=== PATIENT | female | born 1935 | race Caucasian/White ===

== ENCOUNTER → 2016-09-27 | Outpatient (CLI) | payer MEDICARE ==
--- NOTE | 2016-09-27 15:49 | US ---
EXAMINATION TYPE: US carotid duplex BILAT DATE OF EXAM: 09/27/2016 2:33 PM COMPARISON: NONE CLINICAL HISTORY: 81-year-old female R09.89 Right Carotid Bruit. TECHNIQUE: Duplex carotid ultrasound examination. Direct Doppler criteria was utilized. FINDINGS: Moderate to severe atherosclerotic change at the left greater than right bifurcations. EXAM MEASUREMENTS: RIGHT: Peak Systolic Velocity (PSV) cm/sec ----- Right CCA: 66.8 ----- Right ICA: 95.3 ----- Right ECA: 153.1 ICA/CCA ratio: 1.4 RIGHT: End Diastole cm/sec ----- Right CCA: 0.0 ----- Right ICA: 19.7 ----- Right ECA: 0.0 LEFT: Peak Systolic Velocity (PSV) cm/sec ----- Left CCA: 41.8 ----- Left ICA: 127.6 ----- Left ECA: 68.6 ICA/CCA ratio: 3.1 LEFT: End Diastole cm/sec ----- Left CCA: 10.4 ----- Left ICA: 25.3 ----- Left ECA: 0.0 VERTEBRALS (direction of flow): Right Vertebral: Antegrade Left Vertebral: Antegrade IMPRESSION: 1. There may be a moderate (50-69%) proximal ICA stenosis on the left. 2. Moderate to severe atherosclerotic change is seen at the left greater than right bifurcations. Criteria for Assigning % of Stenosis / Diameter reduction (Estimation based on the indirect measurements of the internal carotid artery velocities (ICA PSV). 1. Normal (no stenosis)=ICA PSV < 125 cm/s: ratio < 2.0: ICA EDV<40 cm/s. 2. Less than 50% stenosis=ICA PSV < 125 cm/s: ratio < 2.0: ICA EDV<40 cm/s. 3. 50 to 69% stenosis=ICA PSV of 125 to 230 cm/s: ration 2.0 ? 4.0: ICA EDV 40-100 cm/s. 4. Greater than 70% stenosis to near occlusion= ICA PSV > 230 cm/s: ratio > 4.0: ICA EDV > 100 cm/s. 5. Near occlusion= ICA PSV velocities may be low or undetectable: variable ratio and ICA EDV. 6. Total occlusion=unable to detect flow.
== END | disposition home or self-care (01) ==
LOC: RADUSWWP 14:06
PROVIDERS: ATTEND Family Medicine
DX: I65.23 Occlusion and stenosis of bilateral carotid arteries (principal)
CPT/HCPCS: 93880

== ENCOUNTER 2018-04-23 13:02 | Observation (INO) | payer MEDICARE ==
[2018-04-23] MEDS ORDERED: SODIUM CHLORIDE 0.9% 500 ML 500 ML IV ONE (13:28)
--- NOTE | 2018-04-23 13:32 | ED ---
General Adult HPI - General Chief complaint: Altered Mental Status Stated complaint: general weakness Time Seen by Provider: 04/23/18 13:05 Source: patient, EMS, RN notes reviewed Mode of arrival: EMS Limitations: altered mental status - History of Present Illness Initial comments: This is an 82-year-old female who comes into the emergency department with known dementia. Patient is altered patient is alert but only oriented to self. I am not sure at this time this is her baseline because no one is with the patient currently. EMS states that they were called because of the patient's decreased appetite and failure to failure to eat or drink. Again no further reports and waiting for family to arrive to try to shed some light on the situation. Patient herself denies any pain she denies any problems breathing she states that she thinks she is in [place] at some sort of medical facility there. - Related Data Home Medications Medication Instructions Recorded Confirmed Aspirin EC [Ecotrin Low Dose] 81 mg PO DAILY 04/23/18 04/23/18 Atorvastatin [Lipitor] 40 mg PO DAILY 04/23/18 04/23/18 Carvedilol [Coreg] 12.5 mg PO BID 04/23/18 04/23/18 Donepezil [Aricept] 10 mg PO HS 04/23/18 04/23/18 Lisinopril 20 mg PO DAILY 04/23/18 04/23/18 Multivitamins, Thera [Multivitamin 1 tab PO DAILY 04/23/18 04/23/18 (formulary)] amLODIPine [Norvasc] 10 mg PO DAILY 04/23/18 04/23/18 Allergies Allergy/AdvReac Type Severity Reaction Status Date / Time No Known Allergies Allergy Verified 04/23/18 14:40 Review of Systems ROS Statement: Those systems with pertinent positive or pertinent negative responses have been documented in the HPI. ROS Other: All systems not noted in ROS Statement are negative. Past Medical History Past Medical History: Hyperlipidemia, Hypertension Additional Past Medical History / Comment(s): DAVID rosen History of Any Multi-Drug Resistant Organisms: None Reported Past Surgical History: Coronary Bypass/CABG Past Anesthesia/Blood Transfusion Reactions: Unable to Obtain Past Psychological History: No Psychological Hx Reported Smoking Status: Former smoker Past Alcohol Use History: Occasional Past Drug Use History: None Reported General Exam - General Exam Comments Initial Comments: GENERAL: Patient is well-developed and well-nourished. Patient is nontoxic and well- hydrated and is in mild distress. ENT: Neck is soft and supple. No significant lymphadenopathy is noted. Oropharynx is clear. Moist mucous membranes. Neck has full range of motion without eliciting any pain. EYES: The sclera were anicteric and conjunctiva were pink and moist. Extraocular movements were intact and pupils were equal round and reactive to light. Eyelids were unremarkable. PULMONARY: Unlabored respirations. Good breath sounds bilaterally. No audible rales rhonchi or wheezing was noted. CARDIOVASCULAR: There is a regular rate and rhythm without any murmurs gallops or rubs. ABDOMEN: Soft and nontender with normal bowel sounds. SKIN: Skin is clear with no lesions or rashes and otherwise unremarkable. NEUROLOGIC: Patient is alert and oriented times one. Cranial nerves II through XII are grossly intact. Motor and sensory are also intact. Normal speech, volume and content. Symmetrical smile. MUSCULOSKELETAL: Normal extremities with adequate strength and full range of motion. LYMPHATICS: No significant lymphadenopathy is noted PSYCHIATRIC: Normal psychiatric evaluation. Limitations: altered mental status Course Vital Signs 04/23/18 04/23/18 04/23/18 13:19 13:30 14:00 Temperature 98.7 F Pulse Rate 54 L 94 Respiratory 18 18 Rate Blood Pressure 115/77 115/77 130/82 O2 Sat by Pulse 96 96 97 Oximetry 04/23/18 04/23/18 04/23/18 14:30 15:00 15:30 Temperature Pulse Rate 79 74 87 Respiratory 19 18 17 Rate Blood Pressure 117/77 120/66 120/66 O2 Sat by Pulse 92 L Oximetry 04/23/18 16:00 Temperature Pulse Rate 75 Respiratory 16 Rate Blood Pressure 101/69 O2 Sat by Pulse Oximetry Medical Decision Making - Medical Decision Making EKG shows atrial fibrillation with an occasional PVC at a rate of 83 bpm QRS is 124 QT interval 422 QTC is 495. Patient's EKG is a left bundle branch block. - Lab Data Result diagrams: 04/23/18 13:52 04/23/18 13:52 Lab Results 04/23/18 04/23/18 04/23/18 Range/Units 13:52 13:52 13:52 WBC 8.4 (3.8-10.6) k/uL RBC 4.56 (3.80-5.40) m/uL Hgb 12.9 (11.4-16.0) gm/dL Hct 40.3 (34.0-46.0) % MCV 88.4 (80.0-100.0) fL MCH 28.2 (25.0-35.0) pg MCHC 32.0 (31.0-37.0) g/dL RDW 14.5 (11.5-15.5) % Plt Count 294 (150-450) k/uL Neutrophils % 76 % Lymphocytes % 12 % Monocytes % 6 % Eosinophils % 5 % Basophils % 0 % Neutrophils # 6.3 (1.3-7.7) k/uL Lymphocytes # 1.0 (1.0-4.8) k/uL Monocytes # 0.5 (0-1.0) k/uL Eosinophils # 0.4 (0-0.7) k/uL Basophils # 0.0 (0-0.2) k/uL PT (9.0-12.0) sec INR (<1.2) APTT (22.0-30.0) sec Sodium 134 L (137-145) mmol/L Potassium 4.0 (3.5-5.1) mmol/L Chloride 101 (98-107) mmol/L Carbon Dioxide 22 (22-30) mmol/L Anion Gap 11 mmol/L BUN 33 H (7-17) mg/dL Creatinine 1.39 H (0.52-1.04) mg/dL Est GFR (CKD-EPI)AfAm 41 (>60 ml/min/1.73 sqM) Est GFR (CKD-EPI)NonAf 35 (>60 ml/min/1.73 sqM) Glucose 95 (74-99) mg/dL Calcium 9.3 (8.4-10.2) mg/dL Total Bilirubin 1.1 (0.2-1.3) mg/dL AST 32 (14-36) U/L ALT 22 (9-52) U/L Alkaline Phosphatase 108 (38-126) U/L Total Creatine Kinase 26 L (30-135) U/L CK-MB (CK-2) 1.6 (0.0-2.4) ng/mL CK-MB (CK-2) Rel Index 6.2 Troponin I 0.168 H* (0.000-0.034) ng/mL Total Protein 6.6 (6.3-8.2) g/dL Albumin 3.3 L (3.5-5.0) g/dL Urine Color Urine Appearance (Clear) Urine pH (5.0-8.0) Ur Specific [place] (1.001-1.035) Urine Protein (Negative) Urine Glucose (UA) (Negative) Urine Ketones (Negative) Urine Blood (Negative) Urine Nitrite (Negative) Urine Bilirubin (Negative) Urine Urobilinogen (<2.0) mg/dL Ur Leukocyte Esterase (Negative) Urine RBC (0-5) /hpf Urine WBC (0-5) /hpf Urine WBC Clumps (None) /hpf Ur Squamous Epith Cells (0-4) /hpf Urine Bacteria (None) /hpf Hyaline Casts (0-2) /lpf Urine Mucus (None) /hpf Urine Opiates Screen (NotDetected) Ur Oxycodone Screen (NotDetected) Urine Methadone Screen (NotDetected) Ur Propoxyphene Screen (NotDetected) Ur Barbiturates Screen (NotDetected) U Tricyclic Antidepress (NotDetected) Ur Phencyclidine Scrn (NotDetected) Ur Amphetamines Screen (NotDetected) U Methamphetamines Scrn (NotDetected) U Benzodiazepines Scrn (NotDetected) Urine Cocaine Screen (NotDetected) U Marijuana (THC) Screen (NotDetected) 04/23/18 04/23/18 Range/Units 13:52 15:05 WBC (3.8-10.6) k/uL RBC (3.80-5.40) m/uL Hgb (11.4-16.0) gm/dL Hct (34.0-46.0) % MCV (80.0-100.0) fL MCH (25.0-35.0) pg MCHC (31.0-37.0) g/dL RDW (11.5-15.5) % Plt Count (150-450) k/uL Neutrophils % % Lymphocytes % % Monocytes % % Eosinophils % % Basophils % % Neutrophils # (1.3-7.7) k/uL Lymphocytes # (1.0-4.8) k/uL Monocytes # (0-1.0) k/uL Eosinophils # (0-0.7) k/uL Basophils # (0-0.2) k/uL PT 10.4 (9.0-12.0) sec INR 1.1 (<1.2) APTT 27.3 (22.0-30.0) sec Sodium (137-145) mmol/L Potassium (3.5-5.1) mmol/L Chloride (98-107) mmol/L Carbon Dioxide (22-30) mmol/L Anion Gap mmol/L BUN (7-17) mg/dL Creatinine (0.52-1.04) mg/dL Est GFR (CKD-EPI)AfAm (>60 ml/min/1.73 sqM) Est GFR (CKD-EPI)NonAf (>60 ml/min/1.73 sqM) Glucose (74-99) mg/dL Calcium (8.4-10.2) mg/dL Total Bilirubin (0.2-1.3) mg/dL AST (14-36) U/L ALT (9-52) U/L Alkaline Phosphatase (38-126) U/L Total Creatine Kinase (30-135) U/L CK-MB (CK-2) (0.0-2.4) ng/mL CK-MB (CK-2) Rel Index Troponin I (0.000-0.034) ng/mL Total Protein (6.3-8.2) g/dL Albumin (3.5-5.0) g/dL Urine Color Yellow Urine Appearance Cloudy H (Clear) Urine pH 5.5 (5.0-8.0) Ur Specific [place] 1.008 (1.001-1.035) Urine Protein 1+ H (Negative) Urine Glucose (UA) Negative (Negative) Urine Ketones Negative (Negative) Urine Blood Trace H (Negative) Urine Nitrite Negative (Negative) Urine Bilirubin Negative (Negative) Urine Urobilinogen <2.0 (<2.0) mg/dL Ur Leukocyte Esterase Large H (Negative) Urine RBC 9 H (0-5) /hpf Urine WBC 181 H (0-5) /hpf Urine WBC Clumps Many H (None) /hpf Ur Squamous Epith Cells 17 H (0-4) /hpf Urine Bacteria Many H (None) /hpf Hyaline Casts 18 H (0-2) /lpf Urine Mucus Rare H (None) /hpf Urine Opiates Screen Detected H (NotDetected) Ur Oxycodone Screen Not Detected (NotDetected) Urine Methadone Screen Not Detected (NotDetected) Ur Propoxyphene Screen Not Detected (NotDetected) Ur Barbiturates Screen Not Detected (NotDetected) U Tricyclic Antidepress Not Detected (NotDetected) Ur Phencyclidine Scrn Not Detected (NotDetected) Ur Amphetamines Screen Not Detected (NotDetected) U Methamphetamines Scrn Not Detected (NotDetected) U Benzodiazepines Scrn Not Detected (NotDetected) Urine Cocaine Screen Not Detected (NotDetected) U Marijuana (THC) Screen Not Detected (NotDetected) Disposition Clinical Impression: Urinary tract infection, Anorexia Disposition: ADMITTED IP TO THIS [facility] Referrals: Salty Riley DO [Primary Care Provider] - 1-2 days Time of Disposition: 16:13
[2018-04-23 14:20] LABS: Basophils % (A) 0 %; Eosinophils # (A) 0.4 k/uL (0-0.7); Eosinophils % (A) 5 %; HCT 40.3 % (34.0-46.0); HGB 12.9 gm/dL (11.4-16.0); Lymphocytes % (A) 12 %; MCH 28.2 pg (25.0-35.0); MCV 88.4 fL (80.0-100.0); Mean Platelet Volume 7.7; Monocytes # (A) 0.5 k/uL (0-1.0); Monocytes % (A) 6 %; Neutrophils # (A) 6.3 k/uL (1.3-7.7); Neutrophils % (A) 76 %; Platelet Count 294 k/uL (150-450); RBC 4.56 m/uL (3.80-5.40); RDW 14.5 % (11.5-15.5); WBC 8.4 k/uL (3.8-10.6)
--- NOTE | 2018-04-23 14:24 | XR ---
EXAMINATION TYPE: XR chest 2V DATE OF EXAM: 04/23/2018 COMPARISON: January 03, 2015 HISTORY: Shortness of breath TECHNIQUE: Frontal and lateral views of the chest are obtained. FINDINGS: Scattered senescent parenchymal changes noted. Hyperinflation compatible with COPD. Underlying fibrot ic changes noted. No evidence for infiltrate. No evidence for atelectasis. Heart size is stable. Mediastinal structures are stable and grossly unremarkable. No evidence for hilar prominence. Degenerative changes dorsal spine. IMPRESSION: 1. No evidence for acute pulmonary disease.
[2018-04-23 14:35] LABS: Albumin 3.3 g/dL (3.5-5.0); Calcium 9.3 mg/dL (8.4-10.2); Total Bilirubin 1.1 mg/dL (0.2-1.3); Total Protein 6.6 g/dL (6.3-8.2)
[2018-04-23 14:52] LABS: Creatine Kinase MB 1.6 ng/mL (0.0-2.4)
[2018-04-23 14:53] LABS: Troponin I 0.168 ng/mL (0.000-0.034)
[2018-04-23 14:54] LABS: INR 1.1 (<1.2); Partial Thromboplastin Time 27.3 sec (22.0-30.0); Prothrombin Time 10.4 sec (9.0-12.0)
[2018-04-23 15:50] LABS: Appearance,Urine Cloudy (Clear); Bacteria,Urine Many /hpf; Bilirubin,Urine Negative (Negative); Blood,Urine Trace (Negative); Color,Urine Yellow; Glucose,Urine (UA) Negative (Negative); Hyaline Casts,Urine 18 /lpf (0-2); Ketones,Urine Negative (Negative); Leukocyte Esterase,Urine Large (Negative); Mucus,Urine Rare /hpf; Nitrite,Urine Negative (Negative); PH, Urine 5.5 (5.0-8.0); Protein,Urine 1+ (Negative); RBC,Urine 9 /hpf (0-5); Specific Gravity,Urine 1.008 (1.001-1.035); Squamous Epithelial Cell,Urine 17 /hpf (0-4); Urobilinogen,Urine <2.0 mg/dL (<2.0); WBC,Urine 181 /hpf (0-5)
[2018-04-23 15:54] LABS: Amphetamine Screen,Urine Not Detected (NotDetected); Barbiturate Screen,Urine Not Detected (NotDetected); Benzodiazepines Screen,Urine Not Detected (NotDetected); Cocaine Screen,Urine Not Detected (NotDetected); Methadone Screen, Urine Not Detected (NotDetected); Opiate Screen,Urine Detected (NotDetected); Oxycodone Screen, Urine Not Detected (NotDetected); Phencyclidine Screen,Urine Not Detected (NotDetected); Tricyclic Antidepressant,Urine Not Detected (NotDetected); Urn Cannabinoid Scrn Not Detected (NotDetected)
[2018-04-23] MEDS ORDERED: cefTRIAXone 2,000 MG in SODIUM CHLORIDE 0.9% 100 ML IVPB STA (16:09)
[2018-04-23] MEDS ORDERED: SODIUM CHLORIDE 0.9% 1,000 ML IV ONE (16:21)
[2018-04-23] MEDS ORDERED: IOPAMIDOL-300 CONTRAST 30 ML VIAL (ORAL USE) PO PRN (20:19)
[2018-04-23] MEDS ORDERED: ACETAMINOPHEN TAB 500 MG TAB PO PRN (20:20)
[2018-04-23] MEDS ORDERED: ALPRAZolam 0.25 MG TAB PO PRN (20:20)
[2018-04-23] MEDS ORDERED: MELATONIN 3 MG TABLET PO PRN (20:20)
[2018-04-23] MEDS ORDERED: DONEPEZIL 10 MG TAB PO SCH (21:00)
--- NOTE | 2018-04-23 22:05 | HP ---
HISTORY AND PHYSICAL CHIEF COMPLAINT: Change in mental status and weakness. HISTORY OF PRESENT ILLNESS: This 82-year-old woman with a past medical history of multiple medical problems, including hypertension, hyperlipidemia, dementia, abdominal aortic aneurysm, CAD CABG being followed by Dr. Cristina in the outpatient setting was taken to [facility] with complaints of weakness. The patient is complaining of some abdominal discomfort also especially in the lower part. There is no history of fever, rigors or chills. No history of headache, loss of consciousness. EMS was also called. Appetite was reduced. In the ER, evidence of UTI was suspected. Patient admitted for further evaluation. Troponin found to be 0.168. Also, creatinine is 1.39. There is no history of fever, rigors or chills. PAST MEDICAL HISTORY: Hypertension hyperlipidemia, dementia, abdominal aortic aneurysm, history of CAD, CABG. MEDICATIONS: 1. Lisinopril 20 mg. 2. Coreg 12.5 mg p.o. b.i.d. 3. Ecotrin 81 mg. 4. Norvasc 10 mg daily. 5. Aricept 10 mg q.h.s. 6. Lipitor 40 mg daily. 7. Multivitamins one p.o. daily. ALLERGIES: None. Family history, social history and review of systems could not be taken at length because of the patient's baseline change in mental status. PHYSICAL EXAM: VITAL SIGNS: Pulse is 87, blood pressure 120/62, respiration 17, temperature normal, pulse ox 92% on room air. HEENT: Conjunctivae normal. Oral mucosa dry. NECK: No jugular venous distention. No carotid bruit. No lymph node enlargement. Cardiovascular system: S1, S2 muffled. Ejection systolic murmur. RESPIRATORY: Breath sounds diminished in the bases. A few scattered rhonchi. ABDOMEN: Soft, scaphoid, nontender. No mass palpable. No guarding. No rigidity. Legs: No edema. No swelling. NERVOUS SYSTEM: Higher functions as mentioned earlier. Moves all four extremities. No focal deficits. lymphatics: No lymph nodes palpable in the neck, axillae or groin. Skin: No ulcer, rash or bleeding. LABS: CBC within normal limits. Sodium 134, creatinine 1.39 and troponin 0.168. ASSESSMENT: 1. Abdominal pain possibly urinary tract infection present on admission. 2. Dehydration with diminished p.o. intake with acute renal failure with acute prerenal and acute tubular necrosis. 3. Hyponatremia. 4. Troponin 0.168, indeterminate. Rule out coronary artery disease. 5. Hypertension. 6. Hyperlipidemia. 7. History of dementia. 8. History of abdominal aortic aneurysm. 9. Coronary artery disease, coronary artery bypass grafting. 10.Remote history of nicotine dependence. RECOMMENDATIONS AND DISCUSSION: In this 82-year-old woman who presented with multiple complex medical issues, we will monitor the patient closely, continue the current medications, management and symptomatic treatment. I would also recommend a CT scan of the abdomen and pelvis to complete the workup. Otherwise, broad-spectrum IV antibiotics will be given. Cultures. PT/OT evaluation. overhead worker to evaluate the home situation. Home medications will be continued. Prognosis guarded. I would hold the SAUL inhibitors for now and prognosis guarded because of multiple complex medical issues and further recommendations to follow. Proton pump inhibitors. See orders for details. MMODL / IJN: [id number] /
[2018-04-23] MEDS: PANTOPRAZOLE 40 MG/10 ML VIAL IVP SCH (22:44)
[2018-04-23] MEDS: HEPARIN SODIUM,PORCINE 5,000 UNIT/ML 1 ML VIAL SQ SCH (22:44)
[2018-04-23] MEDS: CARVEDILOL 12.5 MG TAB PO SCH (22:46)
--- NOTE | 2018-04-23 23:38 | CT ---
EXAMINATION TYPE: CT abdomen pelvis wo con DATE OF EXAM: 04/23/2018 COMPARISON: 01/02/2015 HISTORY: UTI CT DLP: 286.5 mGycm Automated exposure control for dose reduction was used. TECHNIQUE: Helical acquisition of images was performed from the lung bases through the pelvis. FINDINGS: Lung bases are clear. Heart is enlarged. There is no pleural effusion. Thoracic aorta and abdominal a fletcher are atheromatous. There is a large lower abdominal aortic aneurysm that measures up to 5.8 cm. T here is upper abdominal aortic aneurysm that measures 3.8 cm. Liver shows no focal defect. Bile ducts are not dilated. Spleen appears normal. There is no evidence of pancreatic mass. Gallbladder appears normal. There is extensive calcification in the branches of t he abdominal aorta. Kidneys show no hydronephrosis. There are bilateral renal cortical cysts that measure up to 2.5 cm. T here is no retroperitoneal adenopathy. Bladder distends smoothly. There is no free fluid in the pelvi s. There is no inguinal hernia. I see no evidence of a bowel obstruction. Appendix is not seen. There is no sign of appendicitis. Uterus shows calcified fibroids. There are spondylotic changes in the tyler mbar spine. I see no focal bone destruction. Bony pelvis is intact. IMPRESSION: THERE IS A 5.8 CM LOWER ABDOMINAL AORTIC ANEURYSM. NO EVIDENCE OF LEAKAGE. ANEURYSM IS INCREASED FROM 4.6 CM [address] THE OLD CT SCAN. EXTENSIVE ATHEROSCLEROTIC VASCULAR CALCIFICATION. FIBROTIC CHANGES AT THE LUNG BASES. THERE IS CLEARING OF THE PLEURAL FLUID AND PULMONARY INTERSTITIAL EDEMA COMPARED TO OLD EXAM. THE HEART IS ENLARGED. HEART APPEARS INCREASED IN SIZE COMPARED TO OLD EXAM. THERE IS PROBABLY A SMALL LOCALIZED DISSECTION OF THE ABDOMINAL AORTA ANEURYSM ON THE ANTERIOR WALL W ITH THE SEPARATION MEASURING 1 CM. THIS IS A CHANGE COMPARED TO OLD EXAM. THIS EXAM WAS DISCUSSED WITH THE PATIENT'S NURSE ON THE FLOOR AT 11:35 PM.
[2018-04-24 00:13] LABS: Potassium 4.4 mmol/L (3.5-5.1)
[2018-04-24 01:36] VITALS: BMI 16.8
[2018-04-24 06:59] LABS: Calcium 8.7 mg/dL (8.4-10.2); Potassium 4.4 mmol/L (3.5-5.1)
[2018-04-24 08:21] LABS: Basophils # (A) 0.1 k/uL (0-0.2); Basophils % (A) 1 %; Eosinophils # (A) 0.3 k/uL (0-0.7); Eosinophils % (A) 3 %; HCT 37.8 % (34.0-46.0); HGB 11.6 gm/dL (11.4-16.0); Hypochromasia Marked; Lymphocytes # (A) 0.8 k/uL (1.0-4.8); Lymphocytes % (A) 11 %; MCH 28.2 pg (25.0-35.0); MCHC 30.8 g/dL (31.0-37.0); MCV 91.7 fL (80.0-100.0); Mean Platelet Volume 7.2; Monocytes # (A) 0.5 k/uL (0-1.0); Monocytes % (A) 6 %; Neutrophils # (A) 5.9 k/uL (1.3-7.7); Neutrophils % (A) 77 %; Platelet Count 315 k/uL (150-450); RBC 4.12 m/uL (3.80-5.40); RDW 14.3 % (11.5-15.5); WBC 7.7 k/uL (3.8-10.6)
[2018-04-24] MEDS ORDERED: ATORVASTATIN 40 MG TAB PO SCH (09:00)
[2018-04-24] MEDS ORDERED: amLODIPine 10 MG TAB PO SCH (09:00)
[2018-04-24] MEDS: PANTOPRAZOLE 40 MG/10 ML VIAL IVP SCH (09:54)
[2018-04-24] MEDS: HEPARIN SODIUM,PORCINE 5,000 UNIT/ML 1 ML VIAL SQ SCH (09:54)
[2018-04-24] MEDS: CARVEDILOL 12.5 MG TAB PO SCH ×2 (09:54→16:59)
[2018-04-24 10:08] VITALS: RESP 20
[2018-04-24] MEDS ORDERED: THIAMINE 100 MG TAB PO SCH (12:00)
[2018-04-24] MEDS ORDERED: FOLIC ACID 1 MG TAB PO SCH (12:00)
[2018-04-24] MEDS ORDERED: MULTIVITAMINS, THERA 1 EACH TAB PO SCH (12:00)
--- NOTE | 2018-04-24 13:50 | CONS ---
DATE OF CONSULTATION: 04/24/2018 This is an 82-year-old, pleasant female. Patient has been admitted with UTI. Patient had a CT scan of the abdomen which showed a lower abdominal aortic aneurysm. The measurement is 5.8. The previous CT scan showed the measurement is 4.6 and also there is noted some small localized dissection on the abdominal aorta aneurysm on the anterior wall with separation measurement about 1 cm. PAST HISTORY: Patient had a CABG done in the past. MEDICAL HISTORY: History of hypertension, anorexia. PHYSICAL EXAMINATION: Patient is seen in her room. NECK: Supple, trachea central. CHEST: Clear to auscultation. ABDOMEN: Soft, nontender. Femoral is not palpable on the right side. Left side is 1+. IMPRESSION: Infrarenal abdominal aortic aneurysm. Patient will be a candidate for aortic stent graft. We will arrange and follow with you. RAJENDAR / WILMA: [id number] / MTDD
[2018-04-24] MEDS ORDERED: PANTOPRAZOLE 40 MG TABLET PO SCH (17:30)
[2018-04-24 17:42] VITALS: BP 121/59; PULSE 60; TEMP 97.8
--- NOTE | 2018-04-24 22:30 | DS ---
DISCHARGE SUMMARY FINAL DIAGNOSES: 1. Abdominal pain with abdominal aortic aneurysm 5.8 cm increased from 4.6 cm. 2. Possible small localized dissection of the anterior abdominal wall aortic aneurysm. 3. Acute urinary tract infection, present on admission. 4. Dehydration with diminished oral intake and renal failure with acute prerenal acute tubular necrosis. 5. Hyponatremia. 6. Troponin 0.168. Rule out coronary artery disease. 7. Hyperlipidemia. 8. History of dementia. 9. History of abdominal aortic aneurysm. 10.History of coronary artery disease, coronary artery bypass grafting. 11.Remote history of nicotine dependence. DISCHARGE DISPOSITION: The patient will be discharged in stable condition with guarded prognosis. Total time taken 35 minutes. HISTORY OF PRESENT ILLNESS: This 82-year-old woman with a past medical history of multiple medical problems was admitted with abdominal pain with features of UTI. CT scan showed abdominal aortic aneurysm. Dr. Echevarria and Dr. Prieto saw the patient. Patient will be transferred to [facility] for further evaluation and treatment. The total time taken was 35 minutes. Prognosis is guarded, but overall the patient is currently stable at this time. The patient will be transferred to [facility]. On exam, vitals are stable. CARDIOVASCULAR: S1, S2 muffled. ABDOMEN: Soft. NERVOUS SYSTEM: No focal deficit. CURRENT MEDICATIONS: Reviewed. They include: 1. Tylenol 500 p.r.n. 2. Xanax 0.25 t.i.d. p.r.n. 3. Norvasc 10 mg daily. 4. Lipitor 40 mg daily. 5. Coreg 12.5 mg b.i.d. 6. Rocephin 1 gram daily. 7. Aricept 10 mg at bedtime. 8. Folic acid 1 mg daily. 9. Heparin 5000 units subcutaneously b.i.d. 10.Melatonin 3 mg at bedtime. 11.Multivitamins 1 p.o. daily. 12.Protonix 40 mg p.o. daily. 13.Vitamin B1 100 mg p.o. daily. MMODL / IJN: [id number] /
== END 2018-04-24 19:44 | disposition other institution (70) ==
LOC: EC 13:02 → 3SCARD 16:21
PROVIDERS: ADMIT Hospitalist; ATTEND Hospitalist
DX: I71.4 Abdominal aortic aneurysm, without rupture (principal); N39.0 Urinary tract infection, site not specified; N17.0 Acute kidney failure with tubular necrosis; E86.0 Dehydration; E87.1 Hypo-osmolality and hyponatremia; R77.8 Other specified abnormalities of plasma proteins; I10 Essential (primary) hypertension; E78.5 Hyperlipidemia, unspecified; G30.9 Alzheimer's disease, unspecified; F02.80 Dementia in other diseases classified elsewhere, unspecified severity, without behavioral disturbance, psychotic disturbance, mood disturbance, and anxiety; Z79.82 Long term (current) use of aspirin; Z79.899 Other long term (current) drug therapy; Z95.1 Presence of aortocoronary bypass graft; Z87.891 Personal history of nicotine dependence
CPT/HCPCS: 96376; 96361 ×3; 96365; 96366; 96372 ×2; 96375; 99285; 36415; 93005; 97162; 80053; 80048; 82550; 82553; 83605; 83735; 84132; 84484; 85025 ×2; 85610; 85730; 81001; 87040; 87324; 80306; 71046; 74176; G0378 ×2; J1644 ×2; J0696 ×2; C9113 ×2

== ENCOUNTER 2018-06-23 17:53 | Inpatient (IN) | payer MEDICARE ==
[2018-06-23] MEDS ORDERED: SODIUM CHLORIDE 0.9% 1,000 ML IV ONE (18:36)
--- NOTE | 2018-06-23 18:36 | ED ---
General Adult HPI - General Chief complaint: Recheck/Abnormal Lab/Rx Stated complaint: Recheck Time Seen by Provider: 06/23/18 18:14 Source: EMS Mode of arrival: EMS Limitations: no limitations - History of Present Illness Initial comments: Patient is an 82-year-old female with a history of coronary artery disease, AAA , and Alzheimer's dementia who presents via EMS, alone with a stated chief complaint from her daughter (who lives with her) of altered mental status. Limited report given to me by RN states that the daughter thought that the patient wasn't acting right today. She was more somnolent, and was "breathing funny." The patient is alert and oriented 1. She continuously repeats her own name. She denies any pain at this time. Patient appears disheveled, but in no distress. - Related Data Home Medications Medication Instructions Recorded Confirmed Atorvastatin [Lipitor] 40 mg PO DAILY 04/23/18 04/23/18 Carvedilol [Coreg] 12.5 mg PO BID 04/23/18 04/23/18 Donepezil [Aricept] 10 mg PO HS 04/23/18 04/23/18 Multivitamins, Thera [Multivitamin 1 tab PO DAILY 04/23/18 04/23/18 (formulary)] amLODIPine [Norvasc] 10 mg PO DAILY 04/23/18 04/23/18 Previous Rx's Medication Instructions Recorded ALPRAZolam [Xanax] 0.25 mg PO TID PRN tab 04/24/18 Acetaminophen Tab [Tylenol] 500 mg PO Q6HR PRN tab 04/24/18 Folic Acid 1 mg PO DAILY@1200 tab 04/24/18 Heparin Sodium,Porcine [Heparin 5,000 unit SQ Q12HR vial 04/24/18 Sodium] Melatonin 3 mg PO HS PRN tablet 04/24/18 Pantoprazole Sodium [Protonix] 40 mg PO DAILY #1 tablet. 04/24/18 Thiamine [Vitamin B-1] 100 mg PO DAILY@1200 tab 04/24/18 cefTRIAXone [Rocephin] 1,000 mg IVPB Q24H vial 04/24/18 Allergies Allergy/AdvReac Type Severity Reaction Status Date / Time No Known Allergies Allergy Verified 04/23/18 14:40 Review of Systems ROS Statement: Those systems with pertinent positive or pertinent negative responses have been documented in the HPI. ROS Other: All systems not noted in ROS Statement are negative. Limitations: ROS unobtainable due to patients medical condition (Patient with Alzheimer's dementia) Past Medical History Past Medical History: Hyperlipidemia, Hypertension Additional Past Medical History / Comment(s): alzhimers, AAA History of Any Multi-Drug Resistant Organisms: None Reported Past Surgical History: Coronary Bypass/CABG Additional Past Surgical History / Comment(s): cabg( between [id number]) Past Anesthesia/Blood Transfusion Reactions: Unable to Obtain Additional Past Anesthesia/Blood Transfusion Reaction / Comment(s): hallucination Past Psychological History: No Psychological Hx Reported Smoking Status: Former smoker Past Alcohol Use History: Occasional Past Drug Use History: None Reported - Past Family History Father Family Medical History: No Reported History Mother Additional Family Medical History / Comment(s): of old age General Exam Limitations: no limitations General appearance: alert, in no apparent distress, cachectic Head exam: Present: atraumatic, normocephalic Eye exam: Present: normal appearance, PERRL. Absent: scleral icterus ENT exam: Present: normal exam Neck exam: Present: normal inspection Respiratory exam: Present: normal lung sounds bilaterally. Absent: respiratory distress, wheezes Cardiovascular Exam: Present: tachycardia, irregular rhythm GI/Abdominal exam: Present: soft. Absent: distended, tenderness Rectal exam: Present: deferred Extremities exam: Present: normal inspection. Absent: pedal edema, joint swelling, calf tenderness Back exam: Present: normal inspection. Absent: CVA tenderness (R), CVA tenderness (L) Neurological exam: Present: alert, altered. Absent: oriented X3 Psychiatric exam: Present: normal affect, normal mood Skin exam: Present: warm, dry, intact Course Vital Signs 06/23/18 06/23/18 06/23/18 17:59 18:12 19:16 Temperature 98.7 F Pulse Rate 110 H 102 H Pulse Rate [ 101 H Biostatistician ] Respiratory 18 18 Rate Blood Pressure 103/73 152/85 O2 Sat by Pulse 98 98 Oximetry 06/23/18 20:29 Temperature Pulse Rate 107 H Pulse Rate [ Biostatistician ] Respiratory 32 H Rate Blood Pressure 137/101 O2 Sat by Pulse 100 Oximetry Medical Decision Making - Medical Decision Making Patient is an 82-year-old female presents with a chief complaint of altered mental status. Patient has a history of also dementia is unable to give her own history. She arrives to the emergency department alone. On initial evaluation, patient is mildly hypotensive, heart rate is 110 and irregular. Patient appears nontoxic and is in no distress. Patient reevaluated a computed tomography scan of the head, chest x-ray, basic cardiac evaluation including urinalysis. 7:29 PM EKG performed at 1912 shows sinus rhythm with PACs, there appears to be a bundle branch block which is similar to EKG performed on 04/23/2018. There is concern for ST depressions in aVL, and leads V4 through V6. I discussed these changes with Dr. Villarreal who states that the patient is not a good candidate for the vp lab and that this should be managed medically. Patient is without chest pain at this time. She was given aspirin. We will repeat troponin at 3 hours and admit to medicine with cardiology consult. 9:37 PM Case discussed with Dr. Ervin who accepts admission. Urinalysis shows evidence of infection, patient treated with Rocephin. Currently pending repeat troponin , patient otherwise stable. EKG was repeated at 2036, EKG shows no changes to prior. - Lab Data Result diagrams: 06/23/18 18:34 06/23/18 18:34 Lab Results 06/23/18 06/23/18 06/23/18 Range/Units 18:34 18:34 18:34 WBC 8.9 (3.8-10.6) k/uL RBC 4.24 (3.80-5.40) m/uL Hgb 11.9 (11.4-16.0) gm/dL Hct 39.5 (34.0-46.0) % MCV 93.2 (80.0-100.0) fL MCH 28.1 (25.0-35.0) pg MCHC 30.2 L (31.0-37.0) g/dL RDW 16.0 H (11.5-15.5) % Plt Count 462 H (150-450) k/uL Neutrophils % 79 % Lymphocytes % 12 % Monocytes % 5 % Eosinophils % 1 % Basophils % 0 % Neutrophils # 7.0 (1.3-7.7) k/uL Lymphocytes # 1.1 (1.0-4.8) k/uL Monocytes # 0.5 (0-1.0) k/uL Eosinophils # 0.1 (0-0.7) k/uL Basophils # 0.0 (0-0.2) k/uL Anisocytosis Slight PT (9.0-12.0) sec INR (<1.2) APTT (22.0-30.0) sec VBG pH 7.49 H (7.31-7.41) VBG pCO2 29 L (37-51) mmHg VBG HCO3 22 L (24-28) mmol/L Sodium 142 (137-145) mmol/L Potassium 4.9 (3.5-5.1) mmol/L Chloride 111 H (98-107) mmol/L Carbon Dioxide 21 L (22-30) mmol/L Anion Gap 10 mmol/L BUN 28 H (7-17) mg/dL Creatinine 0.92 (0.52-1.04) mg/dL Est GFR (CKD-EPI)AfAm 67 (>60 ml/min/1.73 sqM) Est GFR (CKD-EPI)NonAf 58 (>60 ml/min/1.73 sqM) Glucose 136 H (74-99) mg/dL Calcium 10.1 (8.4-10.2) mg/dL Total Bilirubin 0.6 (0.2-1.3) mg/dL AST 28 (14-36) U/L ALT 20 (9-52) U/L Alkaline Phosphatase 106 (38-126) U/L Troponin I (0.000-0.034) ng/mL Total Protein 7.5 (6.3-8.2) g/dL Albumin 3.9 (3.5-5.0) g/dL Urine Color Urine Appearance (Clear) Urine pH (5.0-8.0) Ur Specific [place] (1.001-1.035) Urine Protein (Negative) Urine Glucose (UA) (Negative) Urine Ketones (Negative) Urine Blood (Negative) Urine Nitrite (Negative) Urine Bilirubin (Negative) Urine Urobilinogen (<2.0) mg/dL Ur Leukocyte Esterase (Negative) Urine RBC (0-5) /hpf Urine WBC (0-5) /hpf Urine Bacteria (None) /hpf 06/23/18 06/23/18 06/23/18 Range/Units 18:34 20:02 21:11 WBC (3.8-10.6) k/uL RBC (3.80-5.40) m/uL Hgb (11.4-16.0) gm/dL Hct (34.0-46.0) % MCV (80.0-100.0) fL MCH (25.0-35.0) pg MCHC (31.0-37.0) g/dL RDW (11.5-15.5) % Plt Count (150-450) k/uL Neutrophils % % Lymphocytes % % Monocytes % % Eosinophils % % Basophils % % Neutrophils # (1.3-7.7) k/uL Lymphocytes # (1.0-4.8) k/uL Monocytes # (0-1.0) k/uL Eosinophils # (0-0.7) k/uL Basophils # (0-0.2) k/uL Anisocytosis PT 10.6 (9.0-12.0) sec INR 1.0 (<1.2) APTT 22.4 (22.0-30.0) sec VBG pH (7.31-7.41) VBG pCO2 (37-51) mmHg VBG HCO3 (24-28) mmol/L Sodium (137-145) mmol/L Potassium (3.5-5.1) mmol/L Chloride (98-107) mmol/L Carbon Dioxide (22-30) mmol/L Anion Gap mmol/L BUN (7-17) mg/dL Creatinine (0.52-1.04) mg/dL Est GFR (CKD-EPI)AfAm (>60 ml/min/1.73 sqM) Est GFR (CKD-EPI)NonAf (>60 ml/min/1.73 sqM) Glucose (74-99) mg/dL Calcium (8.4-10.2) mg/dL Total Bilirubin (0.2-1.3) mg/dL AST (14-36) U/L ALT (9-52) U/L Alkaline Phosphatase (38-126) U/L Troponin I 0.047 H* (0.000-0.034) ng/mL Total Protein (6.3-8.2) g/dL Albumin (3.5-5.0) g/dL Urine Color Yellow Urine Appearance Clear (Clear) Urine pH 6.5 (5.0-8.0) Ur Specific [place] 1.011 (1.001-1.035) Urine Protein 2+ H (Negative) Urine Glucose (UA) Negative (Negative) Urine Ketones Negative (Negative) Urine Blood Negative (Negative) Urine Nitrite Negative (Negative) Urine Bilirubin Negative (Negative) Urine Urobilinogen <2.0 (<2.0) mg/dL Ur Leukocyte Esterase Small H (Negative) Urine RBC <1 (0-5) /hpf Urine WBC 24 H (0-5) /hpf Urine Bacteria Moderate H (None) /hpf Disposition Clinical Impression: Altered mental status, Elevated troponin, Tachycardia, UTI (urinary tract infection) Disposition: HOME SELF-CARE Condition: Fair Is patient prescribed a controlled substance at d/c from ED?: No Referrals: None,Stated [Primary Care Provider] - 1-2 days Decision to Admit Reason: Admit from EC - Out of Hospital Transfer - Req. Specs Out of Hospital Transfer - Requested Specifics: Telemetry Unit
[2018-06-23 18:51] LABS: Anisocytosis Slight; Basophils % (A) 0 %; Eosinophils # (A) 0.1 k/uL (0-0.7); Eosinophils % (A) 1 %; HCT 39.5 % (34.0-46.0); HGB 11.9 gm/dL (11.4-16.0); Lymphocytes # (A) 1.1 k/uL (1.0-4.8); Lymphocytes % (A) 12 %; MCH 28.1 pg (25.0-35.0); MCHC 30.2 g/dL (31.0-37.0); MCV 93.2 fL (80.0-100.0); Mean Platelet Volume 6.3; Monocytes # (A) 0.5 k/uL (0-1.0); Monocytes % (A) 5 %; Neutrophils % (A) 79 %; Platelet Count 462 k/uL (150-450); RBC 4.24 m/uL (3.80-5.40); WBC 8.9 k/uL (3.8-10.6)
[2018-06-23 18:56] LABS: Albumin 3.9 g/dL (3.5-5.0); Calcium 10.1 mg/dL (8.4-10.2); Potassium 4.9 mmol/L (3.5-5.1); Total Bilirubin 0.6 mg/dL (0.2-1.3); Total Protein 7.5 g/dL (6.3-8.2)
[2018-06-23 19:08] LABS: VBG PH 7.49 (7.31-7.41)
--- NOTE | 2018-06-23 19:47 | XR ---
EXAMINATION TYPE: XR chest 2V DATE OF EXAM: 06/23/2018 COMPARISON: Prior chest x-ray 04/23/2018 HISTORY: Pain, altered mental status TECHNIQUE: Frontal and lateral views of the chest are obtained. FINDINGS: Patient is post median sternotomy. There is no focal air space opacity, pleural effusion, or pneumothorax seen. The cardiac silhouette size is stable. The aorta is dense. Stent graft present within the abdominal aorta. The osseous structures are intact. Prominent lung lines compatible with underlying emphysema. IMPRESSION: No acute cardiopulmonary process.
[2018-06-23] MEDS: ASPIRIN 81 MG PO STA ×2 (19:48→19:51)
--- NOTE | 2018-06-23 19:52 | CT ---
EXAMINATION TYPE: CT brain wo con DATE OF EXAM: 06/23/2018 COMPARISON: Prior CT brain 01/02/2015 HISTORY: Altered mental status. CT DLP: 1099.4 mGycm Automated exposure control for dose reduction was used. Helical acquisition through the brain. FINDINGS: There are cerebral vascular calcifications present. Periventricular white matter shows patchy low att enuation. There is no hemorrhage. Size of the ventricles is prominent and stable. Cortical atrophy is noted. IMPRESSION: STABLE FINDINGS, NO ACUTE ABNORMALITY. 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
[2018-06-23] MEDS ORDERED: ASPIRIN 300 MG SUPP RECTAL STA (20:14)
[2018-06-23 20:24] LABS: Appearance,Urine Clear (Clear); Bacteria,Urine Moderate /hpf; Bilirubin,Urine Negative (Negative); Blood,Urine Negative (Negative); Color,Urine Yellow; Glucose,Urine (UA) Negative (Negative); Ketones,Urine Negative (Negative); Leukocyte Esterase,Urine Small (Negative); Nitrite,Urine Negative (Negative); PH, Urine 6.5 (5.0-8.0); Protein,Urine 2+ (Negative); RBC,Urine <1 /hpf (0-5); Specific Gravity,Urine 1.011 (1.001-1.035); Urobilinogen,Urine <2.0 mg/dL (<2.0); WBC,Urine 24 /hpf (0-5)
[2018-06-23] MEDS ORDERED: NALOXONE 0.4 MG/ML 1 ML VIAL IV PRN (21:33)
[2018-06-23 21:34] LABS: Partial Thromboplastin Time 22.4 sec (22.0-30.0); Prothrombin Time 10.6 sec (9.0-12.0)
[2018-06-23] MEDS: ALPRAZolam 0.25 MG TAB PO PRN (22:17)
[2018-06-23] MEDS: SODIUM CHLORIDE 0.9% 1,000 ML IV SCH (22:55)
[2018-06-23] MEDS ORDERED: fentaNYL (PF) 50 MCG/ML 2 ML AMP IVP ONE (23:22)
[2018-06-23] MEDS ORDERED: ENOXAPARIN 60 MG/0.6 ML SYRINGE SQ STA (23:23)
--- NOTE | 2018-06-24 00:03 | XR ---
EXAMINATION TYPE: XR tibia fibula RT DATE OF EXAM: 06/23/2018 COMPARISON: NONE HISTORY: Pain TECHNIQUE: 4 views FINDINGS: There is vascular calcification. Knee joint and ankle joint appear intact. I see no fracture. There i s osteopenia. IMPRESSION: No acute abnormality of the right tibia and fibula.
[2018-06-24 06:32] LABS: Basophils # (A) 0.1 k/uL (0-0.2); Basophils % (A) 1 %; Eosinophils # (A) 0.1 k/uL (0-0.7); Eosinophils % (A) 1 %; HCT 36.2 % (34.0-46.0); HGB 10.7 gm/dL (11.4-16.0); Hypochromasia Slight; Lymphocytes # (A) 1.7 k/uL (1.0-4.8); Lymphocytes % (A) 20 %; MCH 27.9 pg (25.0-35.0); MCHC 29.7 g/dL (31.0-37.0); MCV 94.1 fL (80.0-100.0); Mean Platelet Volume 6.3; Monocytes # (A) 0.6 k/uL (0-1.0); Monocytes % (A) 7 %; Neutrophils # (A) 5.8 k/uL (1.3-7.7); Neutrophils % (A) 68 %; Platelet Count 416 k/uL (150-450); RBC 3.85 m/uL (3.80-5.40); RDW 15.8 % (11.5-15.5); WBC 8.5 k/uL (3.8-10.6)
[2018-06-24 06:57] LABS: Potassium 4.4 mmol/L (3.5-5.1)
[2018-06-24 06:58] LABS: Calcium 9.6 mg/dL (8.4-10.2)
[2018-06-24 07:41] LABS: Creatine Kinase MB 2.5 ng/mL (0.0-2.4)
[2018-06-24] MEDS: SODIUM CHLORIDE 0.9% 1,000 ML IV SCH (08:15)
[2018-06-24] MEDS: ALPRAZolam 0.25 MG TAB PO PRN (08:15)
[2018-06-24] MEDS ORDERED: QUEtiapine 25 MG TAB PO PRN (09:35)
[2018-06-24] MEDS: MULTIVITAMINS, THERA 1 EACH TAB PO SCH (11:52)
[2018-06-24] MEDS: CARVEDILOL 3.125 MG TAB PO SCH (11:57)
--- NOTE | 2018-06-24 12:38 | P.HPIM ---
History of Present Illness 82-year-old pleasant female with also was dementia appears to be advanced lives with her daughter was brought in by the daughter because the patient breathing was funny. Patient was definitely tachypneic whenever she becomes anxious she becomes tachypneic. There is mild elevation of troponin patient denied any chest pain patient feels good patient is alert oriented 1-2 appears to be at her baseline and discussed her baseline with the daughter. Patient urine is a little bit abnormal but that beyond that there is no evidence of urinary tract infection patient is fever nor leukocytosis probably with pain. Patient denied any dysuria. Patient has urinary incontinence which is not Unexpected for her age and due to her dementia. Although daughter is requesting to keep the antibiotic for a day or 2. Patient's on-and-off mental status changes are secondary to her advancing dementia. I do not believe patient has daily edema this time Review of Systems REVIEW OF SYSTEMS: CONSTITUTIONAL: No fever, no malaise, no fatigue. HEENT: No recent visual problems or hearing problems. Denied any sore throat. CARDIOVASCULAR: No chest pain, orthopnea, PND, no palpitations, no syncope. PULMONARY: No shortness of breath, no cough, no hemoptysis. GASTROINTESTINAL: No diarrhea, no nausea, no vomiting, no abdominal pain. NEUROLOGICAL: No headaches, no weakness, no numbness. HEMATOLOGICAL: Denies any bleeding or petechiae. GENITOURINARY: Denies any burning micturition, frequency, or urgency. MUSCULOSKELETAL/RHEUMATOLOGICAL: Denies any joint pain, swelling, or any muscle pain. ENDOCRINE: Denies any polyuria or polydipsia. The rest of the 14-point review of systems is negative. Past Medical History Past Medical History: Hyperlipidemia, Hypertension Additional Past Medical History / Comment(s): DAVID rosen History of Any Multi-Drug Resistant Organisms: None Reported Past Surgical History: Coronary Bypass/CABG Additional Past Surgical History / Comment(s): cabg( between [id number]) Past Anesthesia/Blood Transfusion Reactions: Unable to Obtain Additional Past Anesthesia/Blood Transfusion Reaction / Comment(s): hallucination Past Psychological History: No Psychological Hx Reported Smoking Status: Former smoker Past Alcohol Use History: Occasional Additional Past Alcohol Use History / Comment(s): patient denies any alcohol use at this time, Past Drug Use History: None Reported - Past Family History Father Family Medical History: No Reported History Mother Additional Family Medical History / Comment(s): of old age Medications and Allergies Home Medications Medication Instructions Recorded Confirmed Type Atorvastatin [Lipitor] 40 mg PO DAILY 04/23/18 06/24/18 History Donepezil [Aricept] 10 mg PO HS 04/23/18 06/24/18 History Multivitamins, Thera [Multivitamin 1 tab PO DAILY 04/23/18 06/24/18 History (formulary)] amLODIPine [Norvasc] 10 mg PO DAILY 04/23/18 06/24/18 History Pantoprazole Sodium [Protonix] 40 mg PO DAILY #1 tablet. 04/24/18 06/24/18 Rx Ascorbic Acid [Vitamin C] 500 mg PO BID 06/24/18 06/24/18 History Aspirin [[place] Aspirin [facility]] 81 mg PO DAILY 06/24/18 06/24/18 History Budesonide/Formoterol Fumarate 2 puff INHALATION RT-Q12H 06/24/18 06/24/18 History [Symbicort 80-4.5 Mcg Inhaler] Carvedilol [Coreg] 3.125 mg PO BID 06/24/18 06/24/18 History Clopidogrel [Plavix] 75 mg PO DAILY 06/24/18 06/24/18 History Docusate [Colace] 100 mg PO Q12HR 06/24/18 06/24/18 History Ferrous Sulfate [Feosol] 325 mg PO BID 06/24/18 06/24/18 History Furosemide [Lasix] 40 mg PO DAILY 06/24/18 06/24/18 History Methimazole [Tapazole] 10 mg PO DAILY 06/24/18 06/24/18 History QUEtiapine [SEROquel] 25 mg PO HS #30 tab 06/24/18 Rx Allergies Allergy/AdvReac Type Severity Reaction Status Date / Time No Known Allergies Allergy Verified 06/24/18 09:25 Physical Exam Vitals: Vital Signs Temp Pulse Pulse Resp BP BP Pulse Ox 06/24/18 08:00 96.3 F L 99 20 165/86 94 L 06/24/18 03:41 88 20 134/83 94 L 06/24/18 00:16 97.3 F L 88 18 164/74 99 06/23/18 23:27 105 H 22 145/108 100 06/23/18 22:17 97.7 F 103 H 24 168/104 100 06/23/18 20:29 107 H 32 H 137/101 100 06/23/18 19:16 102 H 18 152/85 98 06/23/18 18:12 101 H 06/23/18 17:59 98.7 F 110 H 18 103/73 98 Intake and Output 06/23/18 06/24/18 06/24/18 22:59 06:59 14:59 Intake Total 240 Balance 240 Intake: Oral 240 Other: Voiding Method Bedpan Bedpan Weight 56.699 kg 34.5 kg PHYSICAL EXAMINATION: GENERAL: The patient is alert and oriented x1-2, not in any acute distress. Thin built female HEENT: Pupils are round and equally reacting to light. EOMI. No scleral icterus. No conjunctival pallor. Normocephalic, atraumatic. No pharyngeal erythema. No thyromegaly. CARDIOVASCULAR: S1 and S2 present. No murmurs, rubs, or gallops. PULMONARY: Chest is clear to auscultation, no wheezing or crackles. ABDOMEN: Soft, nontender, nondistended, normoactive bowel sounds. No palpable organomegaly. MUSCULOSKELETAL: No joint swelling or deformity. EXTREMITIES: No cyanosis, clubbing, or pedal edema. NEUROLOGICAL: Gross neurological examination did not reveal any focal deficits. SKIN: No rashes. Results CBC & Chem 7: 06/24/18 06:07 06/24/18 06:07 Labs: Abnormal Lab Results - Last 24 Hours (Table) 06/23/18 06/23/18 06/23/18 Range/Units 18:34 18:34 18:34 Hgb (11.4-16.0) gm/dL MCHC 30.2 L (31.0-37.0) g/dL RDW 16.0 H (11.5-15.5) % Plt Count 462 H (150-450) k/uL VBG pH 7.49 H (7.31-7.41) VBG pCO2 29 L (37-51) mmHg VBG HCO3 22 L (24-28) mmol/L Chloride 111 H (98-107) mmol/L Carbon Dioxide 21 L (22-30) mmol/L BUN 28 H (7-17) mg/dL Glucose 136 H (74-99) mg/dL CK-MB (CK-2) (0.0-2.4) ng/mL Troponin I (0.000-0.034) ng/mL Urine Protein (Negative) Ur Leukocyte Esterase (Negative) Urine WBC (0-5) /hpf Urine Bacteria (None) /hpf 06/23/18 06/23/18 06/23/18 Range/Units 18:34 20:02 21:11 Hgb (11.4-16.0) gm/dL MCHC (31.0-37.0) g/dL RDW (11.5-15.5) % Plt Count (150-450) k/uL VBG pH (7.31-7.41) VBG pCO2 (37-51) mmHg VBG HCO3 (24-28) mmol/L Chloride (98-107) mmol/L Carbon Dioxide (22-30) mmol/L BUN (7-17) mg/dL Glucose (74-99) mg/dL CK-MB (CK-2) (0.0-2.4) ng/mL Troponin I 0.047 H* 0.048 H* (0.000-0.034) ng/mL Urine Protein 2+ H (Negative) Ur Leukocyte Esterase Small H (Negative) Urine WBC 24 H (0-5) /hpf Urine Bacteria Moderate H (None) /hpf 06/24/18 06/24/18 06/24/18 Range/Units 06:07 06:07 06:07 Hgb 10.7 L (11.4-16.0) gm/dL MCHC 29.7 L (31.0-37.0) g/dL RDW 15.8 H (11.5-15.5) % Plt Count (150-450) k/uL VBG pH (7.31-7.41) VBG pCO2 (37-51) mmHg VBG HCO3 (24-28) mmol/L Chloride 114 H (98-107) mmol/L Carbon Dioxide 21 L (22-30) mmol/L BUN 25 H (7-17) mg/dL Glucose 105 H (74-99) mg/dL CK-MB (CK-2) 2.5 H (0.0-2.4) ng/mL Troponin I (0.000-0.034) ng/mL Urine Protein (Negative) Ur Leukocyte Esterase (Negative) Urine WBC (0-5) /hpf Urine Bacteria (None) /hpf Thrombosis Risk Factor Assmnt - Choose All That Apply Other Risk Factors: Yes Each Risk Factor Represents 3 Points: Age 75 years or older Thrombosis Risk Factor Assessment Total Risk Factor Score: 3 Thrombosis Risk Factor Assessment Level: Moderate Risk Assessment and Plan Plan: -Altered mental status: Due to advancing dementia by suspicion is low for delirium although patient is bit dehydrated. hold Lasix continue with gentle hydration, patient was started on Seroquel at nighttime for expected agitation on as-needed basis. Physical therapy and outpatient therapy evaluation. Patient is able to provide good history to me. There is no evidence of urinary tract infection -Asymptomatic bacteriuria -Tachycardia sinus tachycardia secondary to intravascular depletion dehydration. Tachycardia presently resolved -Mildly elevated troponin secondary to acute renal failure even though her creatinine is 0.83 her baseline should be around 0.2, patient has significant EKG murmur disease including left bundle branch block although no significant change from the past patient had atrial fibrillation in the past although probably not a good candidate for anticoagulation. Cardiology will evaluate the patient and cardiology clearance patient will transfer out [facility] to care. -Hyperlipidemia -Hypertension -Dementia advanced dementia thousand. History of coronary disease with CABG in the past -Metabolic acidosis non-anion gap secondary to hyperchloremia -CODE STATUS DO NOT RESUSCITATE
[2018-06-24 13:20] LABS: Creatine Kinase MB 2.8 ng/mL (0.0-2.4)
--- NOTE | 2018-06-24 14:08 | P.CRDCN ---
History of Present Illness Consult date: 06/24/18 Requesting physician: Sarah Benavides Reason for Consult (text): Abnormal troponin Chief complaint: Mental status change History of present illness: This is a pleasant 82-year-old female who has known advanced dementia , apparently lives with her daughter at home. The history was all obtained from the medical record, the patient quite confused, and there is no family at bedside at present. Patient was apparently brought to the hospital on this occasion with worsening mental status changes will shortness of breath. A Cardiology consultation was requested because of abnormality in troponin. Blood pressure this morning 164/80 with a heart rate in the 90s, 94% on 2 L of oxygen. White blood cell count 8.5, hemoglobin 10.7, platelet count 416, sodium 142, potassium 4.4, BUN 25 and creatinine 0.8. Troponin 0.047, 0.048. CAT scan of the brain was stable, no acute abnormality. Chest x-ray did not reveal any acute finding. EKG shows a normal sinus rhythm with nonspecific ST- T wave changes, left bundle-branch block pattern. At the time of my examination , patient is quite confused, she is unaware of where she is , she denies any chest pain at present. Past Medical History Past Medical History: Hyperlipidemia, Hypertension Additional Past Medical History / Comment(s): DAVID rosen History of Any Multi-Drug Resistant Organisms: None Reported Past Surgical History: Coronary Bypass/CABG Additional Past Surgical History / Comment(s): cabg( between [id number]) Past Anesthesia/Blood Transfusion Reactions: Unable to Obtain Additional Past Anesthesia/Blood Transfusion Reaction / Comment(s): hallucination Past Psychological History: No Psychological Hx Reported Smoking Status: Former smoker Past Alcohol Use History: Occasional Additional Past Alcohol Use History / Comment(s): patient denies any alcohol use at this time, Past Drug Use History: None Reported - Past Family History Father Family Medical History: No Reported History Mother Additional Family Medical History / Comment(s): of old age Medications and Allergies Home Medications Medication Instructions Recorded Confirmed Type Atorvastatin [Lipitor] 40 mg PO DAILY 04/23/18 06/24/18 History Donepezil [Aricept] 10 mg PO HS 04/23/18 06/24/18 History Multivitamins, Thera [Multivitamin 1 tab PO DAILY 04/23/18 06/24/18 History (formulary)] amLODIPine [Norvasc] 10 mg PO DAILY 04/23/18 06/24/18 History Pantoprazole Sodium [Protonix] 40 mg PO DAILY #1 tablet. 04/24/18 06/24/18 Rx Ascorbic Acid [Vitamin C] 500 mg PO BID 06/24/18 06/24/18 History Aspirin [[place] Aspirin EC] 81 mg PO DAILY 06/24/18 06/24/18 History Budesonide/Formoterol Fumarate 2 puff INHALATION RT-Q12H 06/24/18 06/24/18 History [Symbicort 80-4.5 Mcg Inhaler] Carvedilol [Coreg] 3.125 mg PO BID 06/24/18 06/24/18 History Clopidogrel [Plavix] 75 mg PO DAILY 06/24/18 06/24/18 History Docusate [Colace] 100 mg PO Q12HR 06/24/18 06/24/18 History Ferrous Sulfate [Feosol] 325 mg PO BID 06/24/18 06/24/18 History Furosemide [Lasix] 40 mg PO DAILY 06/24/18 06/24/18 History Methimazole [Tapazole] 10 mg PO DAILY 06/24/18 06/24/18 History QUEtiapine [SEROquel] 25 mg PO HS #30 tab 06/24/18 Rx Allergies Allergy/AdvReac Type Severity Reaction Status Date / Time No Known Allergies Allergy Verified 06/24/18 09:25 Physical Exam Vitals: Vital Signs Temp Pulse Pulse Resp BP BP Pulse Ox 06/24/18 08:00 96.3 F L 99 20 165/86 94 L 06/24/18 03:41 88 20 134/83 94 L 06/24/18 00:16 97.3 F L 88 18 164/74 99 06/23/18 23:27 105 H 22 145/108 100 06/23/18 22:17 97.7 F 103 H 24 168/104 100 06/23/18 20:29 107 H 32 H 137/101 100 06/23/18 19:16 102 H 18 152/85 98 06/23/18 18:12 101 H 06/23/18 17:59 98.7 F 110 H 18 103/73 98 Intake and Output 06/23/18 06/24/18 06/24/18 22:59 06:59 14:59 Intake Total 240 Balance 240 Intake: Oral 240 Other: Voiding Method Bedpan Bedpan Weight 56.699 kg 34.5 kg PHYSICAL EXAMINATION: GENERAL: 82-year-old female in no acute distress at the time of my examination HEENT: Head is atraumatic, normocephalic. Pupils equal, round. Sclera anicteric. Conjunctiva are clear. Mucous membranes of the mouth are moist. Neck is supple. There is no elevated jugular venous pressure. No carotid bruit is heard. HEART EXAMINATION: Heart S1 and S2 systolic murmur is heard CHEST EXAMINATION: Lungs are clear to auscultation and precussion. No chest wall tenderness is noted on palpation or with deep breathing. ABDOMEN: Soft, nontender. Bowel sounds are heard. No organomegaly noted. EXTREMITIES: 2+ peripheral pulses with no evidence of peripheral edema and no calf tenderness noted. NEUROLOGIC [patient is awake, alert, confused Results 06/24/18 06:07 06/24/18 06:07 Cardiac Enzymes 06/23/18 06/23/18 06/23/18 Range/Units 18:34 18:34 21:11 AST 28 (14-36) U/L CK-MB (CK-2) (0.0-2.4) ng/mL Troponin I 0.047 H* 0.048 H* (0.000-0.034) ng/mL 06/24/18 Range/Units 06:07 AST (14-36) U/L CK-MB (CK-2) 2.5 H (0.0-2.4) ng/mL Troponin I (0.000-0.034) ng/mL Coagulation 06/23/18 Range/Units 21:11 PT 10.6 (9.0-12.0) sec APTT 22.4 (22.0-30.0) sec CBC 06/23/18 06/24/18 Range/Units 18:34 06:07 WBC 8.9 8.5 (3.8-10.6) k/uL RBC 4.24 3.85 (3.80-5.40) m/uL Hgb 11.9 10.7 L (11.4-16.0) gm/dL Hct 39.5 36.2 (34.0-46.0) % Plt Count 462 H 416 (150-450) k/uL Comprehensive Metabolic Panel 06/23/18 06/24/18 Range/Units 18:34 06:07 Sodium 142 142 (137-145) mmol/L Potassium 4.9 4.4 (3.5-5.1) mmol/L Chloride 111 H 114 H (98-107) mmol/L Carbon Dioxide 21 L 21 L (22-30) mmol/L BUN 28 H 25 H (7-17) mg/dL Creatinine 0.92 0.83 (0.52-1.04) mg/dL Glucose 136 H 105 H (74-99) mg/dL Calcium 10.1 9.6 (8.4-10.2) mg/dL AST 28 (14-36) U/L ALT 20 (9-52) U/L Alkaline Phosphatase 106 (38-126) U/L Total Protein 7.5 (6.3-8.2) g/dL Albumin 3.9 (3.5-5.0) g/dL Current Medications Generic Name Dose Route Start Last Admin Trade Name Freq PRN Reason Stop Dose Admin Aspirin 81 mg 06/25/18 09:00 Aspirin PO DAILY [facility] Atorvastatin Calcium 40 mg 06/25/18 09:00 Lipitor PO DAILY [facility] Budesonide/Formoterol Fumarate 2 puff 06/24/18 20:00 Symbicort 80-4.5 Mcg Inhaler INHALATION RT-Q12H [facility] Carvedilol 3.125 mg 06/24/18 17:30 06/24/18 11:57 Coreg PO 3.125 mg BID-W/MEALS [facility] Administration Docusate Sodium 100 mg 06/24/18 21:00 Colace PO Q12HR [facility] Donepezil HCl 10 mg 06/24/18 21:00 Aricept PO HS [facility] Ferrous Sulfate 325 mg 06/24/18 21:00 Feosol PO BID [facility] Methimazole 10 mg 06/25/18 09:00 Tapazole PO DAILY [facility] Multivitamins 1 each 06/24/18 12:00 06/24/18 11:52 Theragran PO Not Given DAILY@1200 [facility] Naloxone HCl 0.2 mg 06/23/18 21:33 Narcan IV Q2M PRN Opioid Reversal Pantoprazole Sodium 40 mg 06/25/18 07:30 Protonix PO AC-BRKFST [facility] Quetiapine Fumarate 25 mg 06/24/18 09:35 Seroquel PO HS PRN Agitation Intake and Output 06/23/18 06/24/18 06/24/18 22:59 06:59 14:59 Intake Total 240 Balance 240 Intake: Oral 240 Other: Voiding Method Bedpan Bedpan Weight 56.699 kg 34.5 kg 06/24/18 06:07 06/24/18 06:07 EKG Interpretations (text) EKG shows normal sinus rhythm with left bundle branch block pattern, nonspecific ST-T wave changes Assessment and Plan Plan: Assessment and plan #1 mental status changes in a patient with known advanced dementia #2 UTI #3 abnormal troponin, not consistent with acute coronary syndrome with no nuchal pattern of rise and fall. #4 hyperlipidemia #5 hypertension Plan We will obtain an echocardiogram with Doppler study. We will maximize the patient's medication. Continue a baby aspirin daily along with Lipitor, Coreg, add a small dose of Lisinopril. DNP note has been reviewed, I agree with a documented findings and plan of care. Patient was seen and examined.
[2018-06-24 15:00] VITALS: BMI 12.7
[2018-06-24] MEDS: FERROUS SULFATE 325 MG TAB PO SCH (19:34)
[2018-06-24] MEDS: DOCUSATE 100 MG CAP PO SCH (19:34)
[2018-06-24] MEDS: DONEPEZIL 10 MG TAB PO SCH (19:34)
[2018-06-24] MEDS: SYMBICORT 80-4.5 MCG INHALER INHALATION SCH (20:32)
[2018-06-25] MEDS: PANTOPRAZOLE 40 MG TABLET PO SCH (06:16)
[2018-06-25] MEDS: CARVEDILOL 3.125 MG TAB PO SCH ×2 (06:16→17:52)
[2018-06-25] MEDS: ATORVASTATIN 40 MG TAB PO SCH (08:10)
[2018-06-25] MEDS: DOCUSATE 100 MG CAP PO SCH ×2 (08:10→20:07)
[2018-06-25] MEDS: MULTIVITAMINS, THERA 1 EACH TAB PO SCH (08:10)
[2018-06-25] MEDS: FERROUS SULFATE 325 MG TAB PO SCH ×2 (08:10→20:07)
[2018-06-25] MEDS: ASPIRIN 81 MG PO SCH (08:10)
[2018-06-25] MEDS: METHIMAZOLE 5 MG TAB PO SCH (08:11)
[2018-06-25] MEDS: SYMBICORT 80-4.5 MCG INHALER INHALATION SCH ×2 (08:59→20:37)
[2018-06-25] MEDS ORDERED: CLOPIDOGREL 75 MG TAB PO SCH (09:00)
--- NOTE | 2018-06-25 15:18 | XR ---
EXAMINATION TYPE: XR knee complete RT DATE OF EXAM: 06/25/2018 CLINICAL HISTORY: Pain. TECHNIQUE: Three views of the right knee are obtained. COMPARISON: Right leg x-ray from 2 days ago. FINDINGS: Demineralization is redemonstrated. There is no acute fracture/dislocation evident in righ t knee. Moderate tricompartment joint space loss is present. Posterior vascular calcification is agai n seen. IMPRESSION: As above.
--- NOTE | 2018-06-25 15:19 | XR ---
EXAMINATION TYPE: XR Hip Complete RT DATE OF EXAM: 06/25/2018 CLINICAL HISTORY: Pain. TECHNIQUE: AP and frogleg views of the right hip are obtained. COMPARISON: None. FINDINGS: There is no acute fracture/dislocation evident in the right hip. Demineralization is prese nt. There is moderate to severe axial joint space loss with moderate head neck collar spurring. Right groin vascular calcification is present. IMPRESSION: As above.
--- NOTE | 2018-06-25 15:52 | P.PN ---
Subjective Progress Note Date: 06/25/18 This is a pleasant 82-year-old female who has known advanced dementia , apparently lives with her daughter at home. The history was all obtained from the medical record, the patient quite confused, and there is no family at bedside at present. Patient was apparently brought to the hospital on this occasion with worsening mental status changes will shortness of breath. A Cardiology consultation was requested because of abnormality in troponin. Blood pressure this morning 164/80 with a heart rate in the 90s, 94% on 2 L of oxygen. White blood cell count 8.5, hemoglobin 10.7, platelet count 416, sodium 142, potassium 4.4, BUN 25 and creatinine 0.8. Troponin 0.047, 0.048. CAT scan of the brain was stable, no acute abnormality. Chest x-ray did not reveal any acute finding. EKG shows a normal sinus rhythm with nonspecific ST- T wave changes, left bundle-branch block pattern. At the time of my examination , patient is quite confused, she is unaware of where she is , she denies any chest pain at present. 06/25/2018 Patient seen and examined this morning, blood pressure 118/70 with a heart rate in the 60s, 96% on room air. Patient continues to be confused. Echo remains pending. Objective - Vital Signs Vital signs: Vital Signs Temp 97.1 F L 06/25/18 07:00 Pulse 59 L 06/25/18 08:00 Resp 16 06/25/18 08:00 BP 117/78 06/25/18 07:00 Pulse Ox 96 06/25/18 07:00 Intake & Output 06/24/18 06/25/18 06/25/18 18:59 06:59 18:59 Intake Total 360 280 Output Total 100 100 Balance 360 -100 180 Weight 34.5 kg Intake: Oral 360 280 Output: Urine 100 100 Other: Voiding Method Bedpan Bedpan # Voids 1 1 1 - Exam PHYSICAL EXAMINATION: GENERAL: 82-year-old female in no acute distress at the time of my examination HEENT: Head is atraumatic, normocephalic. Pupils equal, round. Sclera anicteric. Conjunctiva are clear. Mucous membranes of the mouth are moist. Neck is supple. There is no elevated jugular venous pressure. No carotid bruit is heard. HEART EXAMINATION: Heart S1 and S2 systolic murmur is heard CHEST EXAMINATION: Lungs are clear to auscultation and precussion. No chest wall tenderness is noted on palpation or with deep breathing. ABDOMEN: Soft, nontender. Bowel sounds are heard. No organomegaly noted. EXTREMITIES: 2+ peripheral pulses with no evidence of peripheral edema and no calf tenderness noted. NEUROLOGIC [patient is awake, alert, confused - Labs CBC & Chem 7: 06/24/18 06:07 06/24/18 06:07 Labs: Microbiology - Last 24 Hours (Table) 06/23/18 20:02 Urine Culture - Preliminary Urine,Catheterized Group D Enterococcus 06/23/18 22:49 Blood Culture - Preliminary Blood No Growth after 24 hours Assessment and Plan Plan: Assessment and plan #1 mental status changes in a patient with known advanced dementia #2 UTI #3 abnormal troponin, not consistent with acute coronary syndrome with no nuchal pattern of rise and fall. #4 hyperlipidemia #5 hypertension Plan We will review the patient's echocardiogram with Doppler study. Continue current medications. DNP note has been reviewed, I agree with a documented findings and plan of care. Patient was seen and examined.
--- NOTE | 2018-06-25 18:40 | P.PN ---
Subjective 82-year-old pleasant female with also was dementia appears to be advanced lives with her daughter was brought in by the daughter because the patient breathing was funny. Patient was definitely tachypneic whenever she becomes anxious she becomes tachypneic. There is mild elevation of troponin patient denied any chest pain patient feels good patient is alert oriented 1-2 appears to be at her baseline and discussed her baseline with the daughter. Patient urine is a little bit abnormal but that beyond that there is no evidence of urinary tract infection patient is fever nor leukocytosis probably with pain. Patient denied any dysuria. Patient has urinary incontinence which is not Unexpected for her age and due to her dementia. Although daughter is requesting to keep the antibiotic for a day or 2. Patient's on-and-off mental status changes are secondary to her advancing dementia. I do not believe patient has daily edema this time 06/25/2018 No overnight events although patient is limping on the right side and will require subacute rehabilitation placement will obtain x-rays of the right hip and knee ankle on the right side did not show any fracture Constitutional: Denied any fatigue denied any fever. Cardio vascular: denied any chest pain, palpitations Gastrointestinal denied any nausea vomiting Pulmonary: Denied any shortness of breath cough Neurologic denied any new focal deficits All inpatient medications were reviewed and appropriate changes in these medications as dictated in the interval history and assessment and plan. Objective - Vital Signs Vital signs: Vital Signs Temp 97.1 F L 06/25/18 07:00 Pulse 59 L 06/25/18 08:00 Resp 16 06/25/18 08:00 BP 117/78 06/25/18 07:00 Pulse Ox 96 06/25/18 07:00 Intake & Output 06/24/18 06/25/18 06/25/18 18:59 06:59 18:59 Intake Total 360 520 Output Total 100 100 Balance 360 -100 420 Weight 34.5 kg Intake: Oral 360 520 Output: Urine 100 100 Other: Voiding Method Bedpan Bedpan # Voids 1 1 1 # Bowel Movements 1 - Exam PHYSICAL EXAMINATION: GENERAL: The patient is alert and oriented x1-2, not in any acute distress. Thin built female HEENT: Pupils are round and equally reacting to light. EOMI. No scleral icterus. No conjunctival pallor. Normocephalic, atraumatic. No pharyngeal erythema. No thyromegaly. CARDIOVASCULAR: S1 and S2 present. No murmurs, rubs, or gallops. PULMONARY: Chest is clear to auscultation, no wheezing or crackles. ABDOMEN: Soft, nontender, nondistended, normoactive bowel sounds. No palpable organomegaly. MUSCULOSKELETAL: No joint swelling or deformity. EXTREMITIES: No cyanosis, clubbing, or pedal edema. NEUROLOGICAL: Gross neurological examination did not reveal any focal deficits. SKIN: No rashes. - Labs CBC & Chem 7: 06/24/18 06:07 06/24/18 06:07 Labs: Microbiology - Last 24 Hours (Table) 06/23/18 20:02 Urine Culture - Preliminary Urine,Catheterized Group D Enterococcus 06/23/18 22:49 Blood Culture - Preliminary Blood No Growth after 24 hours Assessment and Plan Plan: -Altered mental status: Due to advancing dementia by suspicion is low for delirium although patient is bit dehydrated. holding Lasix continue with gentle hydration, patient was started on Seroquel at nighttime for expected agitation on as-needed basis. Physical therapy and outpatient therapy evaluation. Patient is able to provide good history to me. There is no evidence of urinary tract infection -Asymptomatic bacteriuria -Tachycardia sinus tachycardia secondary to intravascular depletion dehydration. Tachycardia presently resolved -Mildly elevated troponin secondary to acute renal failure even though her creatinine is 0.83 her baseline should be around 0.2, patient has significant EKG murmur disease including left bundle branch block although no significant change from the past patient had atrial fibrillation in the past although probably not a good candidate for anticoagulation. Cardiology will evaluate the patient and cardiology clearance patient will transfer out of [facility] to care. -Hyperlipidemia -Hypertension -Dementia advanced probably dementia of Alzheimer's type patient has deconditioning and severe osteoarthritis because of which patient is limping towards right side right hip and knee x-rays negative along with -2 ankle x-ray for fracture History of coronary disease with CABG in the past -Metabolic acidosis non-anion gap secondary to hyperchloremia -CODE STATUS DO NOT RESUSCITATE
[2018-06-25] MEDS: DONEPEZIL 10 MG TAB PO SCH (20:07)
--- NOTE | 2018-06-25 20:34 | ECHOF ---
Referral Reason:abn trop MEASUREMENTS -------- HEIGHT: 165.1 cm WEIGHT: 34.5 kg BP: IVSd: 1.4 cm (0.6 - 1.1) LVIDd: 4.0 cm (3.9 - 5.3) LVPWd: 2.0 cm (0.6 - 1.1) IVSs: 1.6 cm LVIDs: 3.7 cm LVPWs: 1.8 cm LA Diam: 4.4 cm (2.7 - 3.8) LAESV Index (A-L): 60.04 ml/m Ao Diam: 2.4 cm (2.0 - 3.7) LA Diam: 4.3 cm (2.7 - 3.8) AV Cusp: 1.6 cm (1.5 - 2.6) EPSS: 1.2 cm MV E Lawrence: 0.73 m/s MV DecT: 321 ms MV A Lawrence: 0.63 m/s MV E/A Ratio: 1.17 AV maxP.77 mmHg AV meanP.65 mmHg RAP: 5.00 mmHg RVSP: 25.41 mmHg MV EF SLOPE: 38.69 mm/s (70 - 150) MV EXCURSION: 13.88 mm (> 18.000) FINDINGS -------- Undetermined rhythm. This was a technically good study. The left ventricular size is normal. There is moderate concentric left ventricular hypertrophy. O verall left ventricular systolic function is moderate-severely impaired with, an EF between 30 - 35 % . The right ventricle is normal in size. The left atrium is markedly dilated. LA is severely dilated >40 ml/m2 The right atrial size is normal. Peak/mean gradient across the Aortic Valve is 29.77mmHg / 14.65mmHg. Normally functioning bioprosth etic valve. Mild mitral annular calcification present. Mild mitral regurgitation is present. Mild tricuspid regurgitation present. There is no evidence of pulmonary hypertension. The right v entricular systolic pressure, as measured by Doppler, is 25.41mmHg. Trace/mild (physiologic) pulmonic regurgitation. The aortic root size is normal. There is no pericardial effusion. CONCLUSIONS -------- 1. The left ventricular size is normal. 2. There is moderate concentric left ventricular hypertrophy. 3. Overall left ventricular systolic function is moderate-severely impaired with, an EF between 30 - 35 %. 4. The right ventricle is normal in size. 5. The left atrium is markedly dilated. 6. LA is severely dilated >40 ml/m2 7. The right atrial size is normal. 8. Peak/mean gradient across the Aortic Valve is 29.77mmHg / 14.65mmHg. 9. Normally functioning bioprosthetic valve. 10. Mild mitral annular calcification present. 11. Mild mitral regurgitation is present. 12. Mild tricuspid regurgitation present. 13. There is no evidence of pulmonary hypertension. 14. The right ventricular systolic pressure, as measured by Doppler, is 25.41mmHg. 15. Trace/mild (physiologic) pulmonic regurgitation. 16. The aortic root size is normal. 17. There is no pericardial effusion. MEDICAL TECHNOLOGIST HEMATOLOGY: Gisela Stewart RDCS
[2018-06-26] MEDS: CARVEDILOL 3.125 MG TAB PO SCH (07:39)
[2018-06-26] MEDS: DOCUSATE 100 MG CAP PO SCH (07:39)
[2018-06-26] MEDS: ASPIRIN 81 MG PO SCH (07:39)
[2018-06-26] MEDS: MULTIVITAMINS, THERA 1 EACH TAB PO SCH (07:39)
[2018-06-26] MEDS: FERROUS SULFATE 325 MG TAB PO SCH (07:40)
[2018-06-26] MEDS: ATORVASTATIN 40 MG TAB PO SCH (07:40)
[2018-06-26] MEDS: PANTOPRAZOLE 40 MG TABLET PO SCH (07:40)
[2018-06-26] MEDS: METHIMAZOLE 5 MG TAB PO SCH (07:40)
[2018-06-26] MEDS: SYMBICORT 80-4.5 MCG INHALER INHALATION SCH (08:37)
[2018-06-26 09:00] LABS: Calcium 9.8 mg/dL (8.4-10.2); Potassium 4.2 mmol/L (3.5-5.1)
[2018-06-26] MEDS ORDERED: AMOXIC-POT CLAV 500-125 MG 1 EACH TAB PO SCH (12:00)
--- NOTE | 2018-06-26 12:26 | P.DS ---
Providers Date of admission: 06/23/18 21:33 Expected date of discharge: 06/26/18 Attending physician: MD Dr. Kennedy Austin. Consults: 06/23/18 21:33 Consult Physician Stat Consulting Provider: Thomas Villarreal Consult Reason/Comments: elevated troponin Do you want consulting provider notified?: Already Contacted Primary care physician: Stated None Hospital Course: Final Diagnoses: -Altered mental status: Due to advancing dementia, suspicion is low for delirium although patient presented with mild dehydration. -POssibly acute UTi with Group D ENterrococcus -Sinus tachycardia secondary to intravascular depletion dehydration. resolved -Mildly elevated troponin secondary to acute renal failure, ATN, not consist. with ACS as per per Cardiology. -Hyperlipidemia -Hypertension -Dementia advanced probably dementia of Alzheimer's type with deconditioning and severe osteoarthritis. History of coronary disease with CABG in the past -Metabolic acidosis non-anion gap secondary to hyperchloremia -CODE STATUS DO NOT RESUSCITATE Hospital COurse:82-year-old pleasant female with also was dementia appears to be advanced lives with her daughter was brought in by the daughter because the patient breathing was funny. Patient was definitely tachypneic whenever she becomes anxious she becomes tachypneic. There is mild elevation of troponin patient denied any chest pain patient feels good patient is alert oriented 1-2 appears to be at her baseline and discussed her baseline with the daughter. Patient urine is a little bit abnormal but that beyond that there is no evidence of urinary tract infection patient is fever nor leukocytosis probably with pain. Patient denied any dysuria. Patient has urinary incontinence which is not Unexpected for her age and due to her dementia. Although daughter is requesting to keep the antibiotic for a day or 2. Patient' s on-and-off mental status changes are secondary to her advancing dementia. I do not believe patient has daily edema this time.Rigiht knee and hip xrays did not report acute fracture/dislocation. Moderate joint space loss. Evaluated by Cardiology,elevated troponins not consistant witih ACS.Echo reporting moderately concentric left ventricular hypertrophy,moderately- severely impaired LV function with EF 30-35%. Urine culture growing greater than 100,000 colonies Group D Enterococcus with C/ O frequency.Augmentin initiated. EXAMINATION: GENERAL: The patient is alert and oriented x1-2, not in any acute distress. Thin built female HEENT: Pupils are round and equally reacting to light. EOMI. No scleral icterus. No conjunctival pallor. Normocephalic, atraumatic. No pharyngeal erythema. No thyromegaly. CARDIOVASCULAR: S1 and S2 present. Systolic murmur, no rubs, or gallops. PULMONARY: Chest is clear to auscultation, no wheezing or crackles. ABDOMEN: Soft, nontender, nondistended, normoactive bowel sounds. No palpable organomegaly. MUSCULOSKELETAL: No joint swelling or deformity. EXTREMITIES: No cyanosis, clubbing, or pedal edema. NEUROLOGICAL: Gross neurological examination did not reveal any focal deficits. SKIN: No rashes. Microbiology 06/23/18 22:49 Blood Blood Culture - Preliminary No Growth after 48 hours 06/23/18 20:02 Urine,Catheterized Urine Culture - Preliminary Group D Enterococcus The impression and plan of care has been dictated as directed. : I performed a history and examination of this patient, discussed the same with the dictator. I agree with the dictator's note ,documented as a scribe. Any additional findings or plans will be noted. Time taken : 35 min. Patient Condition at Discharge: Stable Plan - Discharge Summary Discharge Rx Participant: No New Discharge Prescriptions: New QUEtiapine [SEROquel] 25 mg PO HS #30 tab Amoxicillin/Potassium Clav [Augmentin 875-125 Tablet] 1 tab PO Q12HR #10 tab Continue Multivitamins, Thera [Multivitamin (formulary)] 1 tab PO DAILY Donepezil [Aricept] 10 mg PO HS Atorvastatin [Lipitor] 40 mg PO DAILY Pantoprazole Sodium [Protonix] 40 mg PO DAILY #1 tablet. Furosemide [Lasix] 40 mg PO DAILY Ferrous Sulfate [Feosol] 325 mg PO BID Budesonide/Formoterol Fumarate [Symbicort 80-4.5 Mcg Inhaler] 2 puff INHALATION RT-Q12H Ascorbic Acid [Vitamin C] 500 mg PO BID Docusate [Colace] 100 mg PO Q12HR Aspirin [Toole Aspirin EC] 81 mg PO DAILY Carvedilol [Coreg] 3.125 mg PO BID Methimazole [Tapazole] 10 mg PO DAILY Discontinued amLODIPine [Norvasc] 10 mg PO DAILY Discharge Medication List Atorvastatin [Lipitor] 40 mg PO DAILY 04/23/18 [History] Donepezil [Aricept] 10 mg PO HS 04/23/18 [History] Multivitamins, Thera [Multivitamin (formulary)] 1 tab PO DAILY 04/23/18 [History ] Pantoprazole Sodium [Protonix] 40 mg PO DAILY #1 tablet. 04/24/18 [Rx] Ascorbic Acid [Vitamin C] 500 mg PO BID 06/24/18 [History] Aspirin [Toole Aspirin EC] 81 mg PO DAILY 06/24/18 [History] Budesonide/Formoterol Fumarate [Symbicort 80-4.5 Mcg Inhaler] 2 puff INHALATION RT-Q12H 06/24/18 [History] Carvedilol [Coreg] 3.125 mg PO BID 06/24/18 [History] Docusate [Colace] 100 mg PO Q12HR 06/24/18 [History] Ferrous Sulfate [Feosol] 325 mg PO BID 06/24/18 [History] Furosemide [Lasix] 40 mg PO DAILY 06/24/18 [History] Methimazole [Tapazole] 10 mg PO DAILY 06/24/18 [History] QUEtiapine [SEROquel] 25 mg PO HS #30 tab 06/24/18 [Rx] Amoxicillin/Potassium Clav [Augmentin 875-125 Tablet] 1 tab PO Q12HR #10 tab [Rx] Follow up Appointment(s)/Referral(s): Siddharth Andrade MD [REFERRING] - 3 Days (while at [facility]) Salty Riley DO [Doctor of Osteopathic Medicine] - 1 Week (after dc fron F ) Patient Instructions/Handouts: Tachycardia (GEN) Activity/Diet/Wound Care/Special Instructions: [facility]. DIet: cardiac Activity: as tolerated CBC,BMP In 3 days Discharge Disposition: TRANSFER TO SNF/ECF
[2018-06-26 15:45] VITALS: RESP 16
[2018-06-26 15:48] VITALS: BP 130/62; PULSE 75; TEMP 97.6
--- NOTE | 2018-06-27 11:01 | CDI ---
Documentation Clarification Form Date: 06/27/2018 8:56:00 AM From: Melany Espinosa Natalie Valles, Matrix Supervisor Hours-8:30 am & 5 pm MRuben Admit Date: 06/23/2018 9:33:00 PM Patient Name: Tracey Short Visit Number: [id number] Discharge Date: 06/26/2018 5:27:00 PM ATTENTION: The Clinical Documentation Specialists (CDI) and [facility] Coding Staff appreciate your assistance in clarifying documentation. Please respond to the clarification below the line at the bottom and electronically sign. The CDI & [facility] Coding staff will review the response and follow-up if needed. Please note: Queries are made part of the Legal Health Record. If you have any questions, please contact the author of this message via ITS. Dr. Sarah Benavides Acute Renal failure is documented in the H&P, PNs, DS History Risk factors/Other underlying illness: UTI, dehydration, HTN BUN: 28, 25, 27 CR: 0.92, 0.83, 0.99 GFR: 67, 76, 61 Treatment: IV fluid hydration In order to capture the severity of the condition, please clarify if the condition signifies: Acute renal failure ruled in Acute renal failure ruled out ATN ruled in ATN ruled out Other, please specify Unable to determine KIDGO defines ARIK as the occurrence of any 1 of the following: Increase in serum creatinine level by 0.3 mg/dl, measured prospectively by at least 2 separate levels obtained within 48 hrs, or Increase in serum creatinine level to 1.5 times baseline or greater, which is known or presumed to have occurred within the prior 7 days, or A urine volume of less than 0.5 ml/kg/h for 6 hours or longer. Please continue to document in your progress notes and discharge summary in order to capture severity of illness and risk of mortality. Include clinical findings that support your diagnosis. Appropriate documentation is already dictated MTDD
--- NOTE | 2018-06-28 12:21 | CDI ---
Documentation Clarification Form Date: 06/28/2018 10:58:00 AM From: Melany Espinosa Natalie Valles, Concrete Handler Hours-8:30 am & 5 pm MRuben Admit Date: 06/23/2018 9:33:00 PM Patient Name: Tracey Short Visit Number: [id number] Discharge Date: 06/26/2018 5:27:00 PM ATTENTION: The Clinical Documentation Specialists (CDI) and [facility] Coding Staff appreciate your assistance in clarifying documentation. Please respond to the clarification below the line at the bottom and electronically sign. The CDI & [facility] Coding staff will review the response and follow-up if needed. Please note: Queries are made part of the Legal Health Record. If you have any questions, please contact the author of this message via ITS. Dr Villarreal, Atrial Fibrillation is documented in the H&P, PNs History/Risk Factors: HHD, CAD, Treatment: Plavix In your professional opinion, can you please clarify the type of Atrial Fibrillation, if known? Chronic/Permanent Paroxysmal Persistent Other, please specify Unable to determine MTDD
== END 2018-06-26 17:27 | DRG 689 ==
LOC: EC 17:53 → 3SCARD 21:33 → 4MS4W 06-26 02:58
PROVIDERS: ADMIT Internal Medicine; ATTEND Internal Medicine
DX: N39.0 Urinary tract infection, site not specified (principal); N17.0 Acute kidney failure with tubular necrosis; E87.2 Acidosis; I95.9 Hypotension, unspecified; E86.0 Dehydration; E87.8 Other disorders of electrolyte and fluid balance, not elsewhere classified; I11.9 Hypertensive heart disease without heart failure; F02.80 Dementia in other diseases classified elsewhere, unspecified severity, without behavioral disturbance, psychotic disturbance, mood disturbance, and anxiety; G30.9 Alzheimer's disease, unspecified; I44.7 Left bundle-branch block, unspecified; Z95.1 Presence of aortocoronary bypass graft; I25.10 Atherosclerotic heart disease of native coronary artery without angina pectoris; M19.90 Unspecified osteoarthritis, unspecified site; I71.4 Abdominal aortic aneurysm, without rupture; Z66 Do not resuscitate; E78.5 Hyperlipidemia, unspecified; R32 Unspecified urinary incontinence; R00.0 Tachycardia, unspecified; B95.2 Enterococcus as the cause of diseases classified elsewhere; R77.8 Other specified abnormalities of plasma proteins; I48.91 Unspecified atrial fibrillation; I49.1 Atrial premature depolarization; R01.1 Cardiac murmur, unspecified; R06.82 Tachypnea, not elsewhere classified; Z79.82 Long term (current) use of aspirin; Z79.51 Long term (current) use of inhaled steroids; Z79.899 Other long term (current) drug therapy; Z87.891 Personal history of nicotine dependence
CPT/HCPCS: 36415; 51701; 70450; 71046; 73502; 80048; 80053; 81001; 82550; 82553; 82803; 83735; 84443; 84484; 85025; 85610; 85730; 87040; 87077; 87086; 87186; 93005; 93306; 94640; 96360; 96361; 99285

== ENCOUNTER → 2018-07-01 | Outpatient (CLI) | payer MEDICARE | END | disposition home or self-care (01) | LOC: RADCTMAIN 10:09 | PROVIDERS: ATTEND Surgery | DX: T82.898A Other specified complication of vascular prosthetic devices, implants and grafts, initial encounter (principal) | CPT/HCPCS: 82565; 84520 ==

== ENCOUNTER 2018-07-06 02:19 | Inpatient (IN) | payer MEDICARE ==
[2018-07-06 03:44] LABS: Basophils # (A) 0.1 k/uL (0-0.2); Basophils % (A) 0 %; Eosinophils # (A) 0.1 k/uL (0-0.7); Eosinophils % (A) 1 %; HCT 44.6 % (34.0-46.0); HGB 13.6 gm/dL (11.4-16.0); Hypochromasia Slight; Lymphocytes # (A) 0.8 k/uL (1.0-4.8); Lymphocytes % (A) 4 %; MCH 28.5 pg (25.0-35.0); MCHC 30.5 g/dL (31.0-37.0); MCV 93.3 fL (80.0-100.0); Mean Platelet Volume 7.4; Monocytes # (A) 0.8 k/uL (0-1.0); Monocytes % (A) 4 %; Neutrophils # (A) 18.8 k/uL (1.3-7.7); Neutrophils % (A) 91 %; Platelet Count 422 k/uL (150-450); RBC 4.78 m/uL (3.80-5.40); RDW 15.2 % (11.5-15.5); WBC 20.6 k/uL (3.8-10.6)
[2018-07-06 03:54] LABS: INR 0.9 (<1.2); Partial Thromboplastin Time 22.2 sec (22.0-30.0); Prothrombin Time 10.2 sec (9.0-12.0)
[2018-07-06 04:02] LABS: Albumin 4.2 g/dL (3.5-5.0); Potassium 4.9 mmol/L (3.5-5.1); Total Bilirubin 0.5 mg/dL (0.2-1.3); Total Protein 8.2 g/dL (6.3-8.2)
--- NOTE | 2018-07-06 04:20 | XR ---
EXAM: XR Chest, 1 View CLINICAL HISTORY: Shortness of breath TECHNIQUE: Frontal view of the chest. COMPARISON: Chest x-ray dated 06/23/2018 FINDINGS: Lungs: Diffuse airspace opacities which may represent pulmonary edema versus an infectious process. Pleural space: Unremarkable. No pneumothorax. Heart: Unremarkable. No cardiomegaly. Mediastinum: Unremarkable. Bones/joints: Evidence of prior median sternotomy. Degenerative changes of the osseous structures. Scoliosis of the spine. IMPRESSION: Diffuse airspace opacities which may represent pulmonary edema versus an infectious process.
[2018-07-06 04:37] LABS: Creatine Kinase MB 2.7 ng/mL (0.0-2.4)
[2018-07-06 04:53] LABS: Troponin I 0.09 ng/mL (0.000-0.034)
[2018-07-06 05:23] LABS: Appearance,Urine Clear (Clear); Bacteria,Urine Occasional /hpf; Bilirubin,Urine Negative (Negative); Blood,Urine Trace (Negative); Color,Urine Yellow; Glucose,Urine (UA) Negative (Negative); Hyaline Casts,Urine 4 /lpf (0-2); Ketones,Urine Negative (Negative); Leukocyte Esterase,Urine Negative (Negative); Mucus,Urine Rare /hpf; Nitrite,Urine Negative (Negative); Protein,Urine 2+ (Negative); RBC,Urine 10 /hpf (0-5); Specific Gravity,Urine 1.012 (1.001-1.035); Squamous Epithelial Cell,Urine 1 /hpf (0-4); Urobilinogen,Urine <2.0 mg/dL (<2.0)
[2018-07-06] MEDS ORDERED: FUROSEMIDE 10 MG/ML 2 ML VIAL IV ONE (05:49)
--- NOTE | 2018-07-06 07:03 | ED ---
SOB HPI - General Chief Complaint: Altered Mental Status Stated Complaint: Altered Mental Status Time Seen by Provider: 07/06/18 02:23 Source: EMS Mode of arrival: EMS Limitations: altered mental status (Patient does not fully recall what happened prior to presentation) - History of Present Illness Initial Comments: Patient's an 82-year-old woman who presents with complaint that she does not feel well. The patient states she was at home and then recalls feeling short of breath and then is not able to state what happened for a period of time and remembers riding here in the ambulance. Per report it sounds like she may have had a syncopal episode. There is also report of loss of continence of urine as well as stool. The patient denies trauma or having any pain. She does feel like she has some shortness of breath. MD Complaint: shortness of breath -: hour(s) Consistency: constant Improves With: oxygen Worsens With: nothing Known History Of: congestive heart failure Associated Symptoms: denies other symptoms Treatments Prior to Arrival: none - Related Data Home Medications Medication Instructions Recorded Confirmed Atorvastatin [Lipitor] 40 mg PO DAILY 04/23/18 06/24/18 Donepezil [Aricept] 10 mg PO HS 04/23/18 06/24/18 Multivitamins, Thera [Multivitamin 1 tab PO DAILY 04/23/18 06/24/18 (formulary)] Ascorbic Acid [Vitamin C] 500 mg PO BID 06/24/18 06/24/18 Aspirin [[place] Aspirin EC] 81 mg PO DAILY 06/24/18 06/24/18 Budesonide/Formoterol Fumarate 2 puff INHALATION RT-Q12H 06/24/18 06/24/18 [Symbicort 80-4.5 Mcg Inhaler] Carvedilol [Coreg] 3.125 mg PO BID 06/24/18 06/24/18 Docusate [Colace] 100 mg PO Q12HR 06/24/18 06/24/18 Ferrous Sulfate [Feosol] 325 mg PO BID 06/24/18 06/24/18 Furosemide [Lasix] 40 mg PO DAILY 06/24/18 06/24/18 Methimazole [Tapazole] 10 mg PO DAILY 06/24/18 06/24/18 Previous Rx's Medication Instructions Recorded Pantoprazole Sodium [Protonix] 40 mg PO DAILY #1 tablet. 04/24/18 QUEtiapine [SEROquel] 25 mg PO HS #30 tab 06/24/18 Amoxicillin/Potassium Clav 1 tab PO Q12HR #10 tab 06/26/18 [Augmentin 875-125 Tablet] Allergies Allergy/AdvReac Type Severity Reaction Status Date / Time No Known Allergies Allergy Verified 07/06/18 03:00 Review of Systems ROS Statement: Those systems with pertinent positive or pertinent negative responses have been documented in the HPI. ROS Other: All systems not noted in ROS Statement are negative. Constitutional: Reports: weakness. Denies: fever Eyes: Denies: vision change Respiratory: Reports: dyspnea. Denies: cough, hemoptysis Cardiovascular: Reports: syncope. Denies: chest pain, palpitations, edema Gastrointestinal: Reports: other (Count is still). Denies: abdominal pain, nausea, vomiting Genitourinary: Reports: other (Continence). Denies: dysuria, hematuria Musculoskeletal: Denies: back pain Skin: Denies: rash Neurological: Denies: headache, weakness, numbness Past Medical History Past Medical History: Dementia, Hyperlipidemia, Hypertension Additional Past Medical History / Comment(s): DAVID rosen History of Any Multi-Drug Resistant Organisms: VRE Date of last positivie culture/infection: 06/23/18 MDRO Source:: VRE URINE Past Surgical History: Coronary Bypass/CABG Additional Past Surgical History / Comment(s): cabg( between [id number]) Past Anesthesia/Blood Transfusion Reactions: Unable to Obtain Additional Past Anesthesia/Blood Transfusion Reaction / Comment(s): hallucination Past Psychological History: No Psychological Hx Reported Smoking Status: Former smoker Past Alcohol Use History: Occasional Past Drug Use History: None Reported - Past Family History Father Family Medical History: No Reported History Mother Additional Family Medical History / Comment(s): of old age General Exam Limitations: altered mental status General appearance: alert, in distress (Mild respiratory distress) Head exam: Present: atraumatic, normocephalic Eye exam: Present: normal appearance Neck exam: Present: normal inspection, full ROM Respiratory exam: Present: rales, rhonchi. Absent: wheezes, stridor, accessory muscle use, decreased breath sounds Cardiovascular Exam: Present: tachycardia, systolic murmur. Absent: diastolic murmur, rubs, gallop GI/Abdominal exam: Present: soft. Absent: distended, tenderness, guarding, rebound, mass Extremities exam: Present: normal inspection, normal capillary refill. Absent: pedal edema, calf tenderness Back exam: Present: normal inspection. Absent: CVA tenderness (R), CVA tenderness (L) Neurological exam: Present: alert Skin exam: Present: warm, dry, intact, normal color. Absent: rash Course Vital Signs 07/06/18 07/06/18 07/06/18 02:45 03:22 04:20 Temperature 97.4 F L 98.2 F Pulse Rate 114 H 98 Pulse Rate [ 114 H Apical] Respiratory 24 32 H Rate Blood Pressure 145/91 149/83 O2 Sat by Pulse 90 L 93 L Oximetry 07/06/18 07/06/18 05:21 06:50 Temperature 98.2 F Pulse Rate 87 88 Pulse Rate [ Apical] Respiratory 16 18 Rate Blood Pressure 143/73 O2 Sat by Pulse 99 Oximetry Medical Decision Making - Lab Data Result diagrams: 07/06/18 03:15 07/06/18 03:15 Lab Results 07/06/18 07/06/18 07/06/18 Range/Units 03:15 03:15 03:15 WBC 20.6 H (3.8-10.6) k/uL RBC 4.78 (3.80-5.40) m/uL Hgb 13.6 (11.4-16.0) gm/dL Hct 44.6 (34.0-46.0) % MCV 93.3 (80.0-100.0) fL MCH 28.5 (25.0-35.0) pg MCHC 30.5 L (31.0-37.0) g/dL RDW 15.2 (11.5-15.5) % Plt Count 422 (150-450) k/uL Neutrophils % 91 % Lymphocytes % 4 % Monocytes % 4 % Eosinophils % 1 % Basophils % 0 % Neutrophils # 18.8 H (1.3-7.7) k/uL Lymphocytes # 0.8 L (1.0-4.8) k/uL Monocytes # 0.8 (0-1.0) k/uL Eosinophils # 0.1 (0-0.7) k/uL Basophils # 0.1 (0-0.2) k/uL Hypochromasia Slight PT (9.0-12.0) sec INR (<1.2) APTT (22.0-30.0) sec Sodium (137-145) mmol/L Potassium (3.5-5.1) mmol/L Chloride (98-107) mmol/L Carbon Dioxide (22-30) mmol/L Anion Gap mmol/L BUN (7-17) mg/dL Creatinine (0.52-1.04) mg/dL Est GFR (CKD-EPI)AfAm (>60 ml/min/1.73 sqM) Est GFR (CKD-EPI)NonAf (>60 ml/min/1.73 sqM) Glucose (74-99) mg/dL Calcium (8.4-10.2) mg/dL Total Bilirubin (0.2-1.3) mg/dL AST (14-36) U/L ALT (9-52) U/L Alkaline Phosphatase (38-126) U/L Ammonia 16 (<30) umol/L Total Creatine Kinase 41 (30-135) U/L CK-MB (CK-2) 2.7 H (0.0-2.4) ng/mL CK-MB (CK-2) Rel Index 6.6 Troponin I 0.090 H* (0.000-0.034) ng/mL NT-Pro-B Natriuret Pep pg/mL Total Protein (6.3-8.2) g/dL Albumin (3.5-5.0) g/dL Urine Color Urine Appearance (Clear) Urine pH (5.0-8.0) Ur Specific [place] (1.001-1.035) Urine Protein (Negative) Urine Glucose (UA) (Negative) Urine Ketones (Negative) Urine Blood (Negative) Urine Nitrite (Negative) Urine Bilirubin (Negative) Urine Urobilinogen (<2.0) mg/dL Ur Leukocyte Esterase (Negative) Urine RBC (0-5) /hpf Urine WBC (0-5) /hpf Ur Squamous Epith Cells (0-4) /hpf Urine Bacteria (None) /hpf Hyaline Casts (0-2) /lpf Urine Mucus (None) /hpf 07/06/18 07/06/18 07/06/18 Range/Units 03:15 03:15 03:15 WBC (3.8-10.6) k/uL RBC (3.80-5.40) m/uL Hgb (11.4-16.0) gm/dL Hct (34.0-46.0) % MCV (80.0-100.0) fL MCH (25.0-35.0) pg MCHC (31.0-37.0) g/dL RDW (11.5-15.5) % Plt Count (150-450) k/uL Neutrophils % % Lymphocytes % % Monocytes % % Eosinophils % % Basophils % % Neutrophils # (1.3-7.7) k/uL Lymphocytes # (1.0-4.8) k/uL Monocytes # (0-1.0) k/uL Eosinophils # (0-0.7) k/uL Basophils # (0-0.2) k/uL Hypochromasia PT 10.2 (9.0-12.0) sec INR 0.9 (<1.2) APTT 22.2 (22.0-30.0) sec Sodium 139 (137-145) mmol/L Potassium 4.9 (3.5-5.1) mmol/L Chloride 107 (98-107) mmol/L Carbon Dioxide 22 (22-30) mmol/L Anion Gap 10 mmol/L BUN 23 H (7-17) mg/dL Creatinine 0.99 (0.52-1.04) mg/dL Est GFR (CKD-EPI)AfAm 61 (>60 ml/min/1.73 sqM) Est GFR (CKD-EPI)NonAf 53 (>60 ml/min/1.73 sqM) Glucose 186 H (74-99) mg/dL Calcium 10.0 (8.4-10.2) mg/dL Total Bilirubin 0.5 (0.2-1.3) mg/dL AST 36 (14-36) U/L ALT 15 (9-52) U/L Alkaline Phosphatase 138 H (38-126) U/L Ammonia (<30) umol/L Total Creatine Kinase (30-135) U/L CK-MB (CK-2) (0.0-2.4) ng/mL CK-MB (CK-2) Rel Index Troponin I (0.000-0.034) ng/mL NT-Pro-B Natriuret Pep 72197 pg/mL Total Protein 8.2 (6.3-8.2) g/dL Albumin 4.2 (3.5-5.0) g/dL Urine Color Urine Appearance (Clear) Urine pH (5.0-8.0) Ur Specific [place] (1.001-1.035) Urine Protein (Negative) Urine Glucose (UA) (Negative) Urine Ketones (Negative) Urine Blood (Negative) Urine Nitrite (Negative) Urine Bilirubin (Negative) Urine Urobilinogen (<2.0) mg/dL Ur Leukocyte Esterase (Negative) Urine RBC (0-5) /hpf Urine WBC (0-5) /hpf Ur Squamous Epith Cells (0-4) /hpf Urine Bacteria (None) /hpf Hyaline Casts (0-2) /lpf Urine Mucus (None) /hpf 07/06/18 Range/Units 04:41 WBC (3.8-10.6) k/uL RBC (3.80-5.40) m/uL Hgb (11.4-16.0) gm/dL Hct (34.0-46.0) % MCV (80.0-100.0) fL MCH (25.0-35.0) pg MCHC (31.0-37.0) g/dL RDW (11.5-15.5) % Plt Count (150-450) k/uL Neutrophils % % Lymphocytes % % Monocytes % % Eosinophils % % Basophils % % Neutrophils # (1.3-7.7) k/uL Lymphocytes # (1.0-4.8) k/uL Monocytes # (0-1.0) k/uL Eosinophils # (0-0.7) k/uL Basophils # (0-0.2) k/uL Hypochromasia PT (9.0-12.0) sec INR (<1.2) APTT (22.0-30.0) sec Sodium (137-145) mmol/L Potassium (3.5-5.1) mmol/L Chloride (98-107) mmol/L Carbon Dioxide (22-30) mmol/L Anion Gap mmol/L BUN (7-17) mg/dL Creatinine (0.52-1.04) mg/dL Est GFR (CKD-EPI)AfAm (>60 ml/min/1.73 sqM) Est GFR (CKD-EPI)NonAf (>60 ml/min/1.73 sqM) Glucose (74-99) mg/dL Calcium (8.4-10.2) mg/dL Total Bilirubin (0.2-1.3) mg/dL AST (14-36) U/L ALT (9-52) U/L Alkaline Phosphatase (38-126) U/L Ammonia (<30) umol/L Total Creatine Kinase (30-135) U/L CK-MB (CK-2) (0.0-2.4) ng/mL CK-MB (CK-2) Rel Index Troponin I (0.000-0.034) ng/mL NT-Pro-B Natriuret Pep pg/mL Total Protein (6.3-8.2) g/dL Albumin (3.5-5.0) g/dL Urine Color Yellow Urine Appearance Clear (Clear) Urine pH 6.0 (5.0-8.0) Ur Specific [place] 1.012 (1.001-1.035) Urine Protein 2+ H (Negative) Urine Glucose (UA) Negative (Negative) Urine Ketones Negative (Negative) Urine Blood Trace H (Negative) Urine Nitrite Negative (Negative) Urine Bilirubin Negative (Negative) Urine Urobilinogen <2.0 (<2.0) mg/dL Ur Leukocyte Esterase Negative (Negative) Urine RBC 10 H (0-5) /hpf Urine WBC 4 (0-5) /hpf Ur Squamous Epith Cells 1 (0-4) /hpf Urine Bacteria Occasional H (None) /hpf Hyaline Casts 4 H (0-2) /lpf Urine Mucus Rare H (None) /hpf Disposition Clinical Impression: Elevated troponin, Altered mental status, CHF (congestive heart failure) Narrative: Possible syncope Disposition: ADMITTED IP TO THIS HOSP Condition: Fair
[2018-07-06] MEDS: FUROSEMIDE 10 MG/ML 4 ML VIAL IV SCH ×2 (07:23→17:22)
[2018-07-06] MEDS ORDERED: QUEtiapine 25 MG TAB PO PRN (16:57)
--- NOTE | 2018-07-06 17:06 | P.HPIM ---
History of Present Illness 82-year-old female known to me from her previous hospitalization came in with altered mental status and patient is unable to provide any much of the history to me patient is coughing unable to bring up much chest x-ray has diffuse infiltrates, can be pneumonia and heart failure patient does have ejection fraction of 30-35% patient does have leukocytosis patient doesn't have any high- grade fever, during her last hospitalization patient was treated for urinary tract infection at that time patient had altered mental status as well. She does have advanced dementia Review of Systems Unable to obtain due to her clinical condition all the patient denies any symptoms she feels well she is alert oriented 1 Past Medical History Past Medical History: Dementia, Hyperlipidemia, Hypertension Additional Past Medical History / Comment(s): DAVID rosen History of Any Multi-Drug Resistant Organisms: VRE Date of last positivie culture/infection: 06/23/18 MDRO Source:: VRE URINE Past Surgical History: Coronary Bypass/CABG Additional Past Surgical History / Comment(s): cabg( between [id number]) Past Anesthesia/Blood Transfusion Reactions: Unable to Obtain Additional Past Anesthesia/Blood Transfusion Reaction / Comment(s): hallucination Past Psychological History: No Psychological Hx Reported Smoking Status: Former smoker Past Alcohol Use History: Occasional Additional Past Alcohol Use History / Comment(s): patient denies any alcohol use at this time, Past Drug Use History: None Reported - Past Family History Father Family Medical History: No Reported History Mother Additional Family Medical History / Comment(s): of old age Medications and Allergies Home Medications Medication Instructions Recorded Confirmed Type Atorvastatin [Lipitor] 40 mg PO HS 04/23/18 07/06/18 History Donepezil [Aricept] 10 mg PO HS 04/23/18 07/06/18 History Multivitamins, Thera [Multivitamin 1 tab PO DAILY 04/23/18 07/06/18 History (formulary)] Pantoprazole Sodium [Protonix] 40 mg PO DAILY #1 tablet. 04/24/18 07/06/18 Rx Aspirin [[place] Aspirin EC] 81 mg PO DAILY 06/24/18 07/06/18 History Budesonide/Formoterol Fumarate 2 puff INHALATION RT-Q12H 06/24/18 07/06/18 History [Symbicort 80-4.5 Mcg Inhaler] Carvedilol [Coreg] 3.125 mg PO BID 06/24/18 07/06/18 History Docusate [Colace] 100 mg PO Q12HR 06/24/18 07/06/18 History Ferrous Sulfate [Feosol] 325 mg PO BID 06/24/18 07/06/18 History Furosemide [Lasix] 40 mg PO DAILY 06/24/18 07/06/18 History Methimazole [Tapazole] 10 mg PO DAILY 06/24/18 07/06/18 History QUEtiapine [SEROquel] 25 mg PO HS #30 tab 06/24/18 07/06/18 Rx Allergies Allergy/AdvReac Type Severity Reaction Status Date / Time No Known Allergies Allergy Verified 07/06/18 07:19 Physical Exam Vitals: Vital Signs Temp Pulse Pulse Pulse Resp BP BP 07/06/18 16:00 98.9 F 104 H 17 145/87 07/06/18 13:02 99.2 F 98 18 138/82 07/06/18 11:52 98.6 F 98 18 122/77 07/06/18 08:19 93 22 153/93 07/06/18 06:50 98.2 F 88 18 143/73 07/06/18 05:21 87 16 07/06/18 04:20 114 H 07/06/18 03:22 98.2 F 98 32 H 149/83 07/06/18 02:45 97.4 F L 114 H 24 145/91 Pulse Ox 07/06/18 16:00 91 L 07/06/18 13:02 93 L 07/06/18 11:52 94 L 07/06/18 08:19 97 07/06/18 06:50 99 07/06/18 05:21 07/06/18 04:20 07/06/18 03:22 93 L 07/06/18 02:45 90 L Intake and Output 07/06/18 07/06/18 07/06/18 06:59 14:59 22:59 Intake Total 200 Balance 200 Intake: Oral 200 Other: Weight 63.503 kg PHYSICAL EXAMINATION: GENERAL: The patient is alert and oriented x1 which is bit worse than her baseline, not in any acute distress. And will female HEENT: Pupils are round and equally reacting to light. EOMI. No scleral icterus. No conjunctival pallor. Normocephalic, atraumatic. No pharyngeal erythema. No thyromegaly. CARDIOVASCULAR: S1 and S2 present. No murmurs, rubs, or gallops. PULMONARY: Does have crackles on the posterior lung coreas ABDOMEN: Soft, nontender, nondistended, normoactive bowel sounds. No palpable organomegaly. MUSCULOSKELETAL: No joint swelling or deformity. EXTREMITIES: No cyanosis, clubbing, or pedal edema. NEUROLOGICAL: Gross neurological examination did not reveal any focal deficits. SKIN: No rashes. Results CBC & Chem 7: 07/06/18 03:15 07/06/18 03:15 Labs: Abnormal Lab Results - Last 24 Hours (Table) 07/06/18 07/06/18 07/06/18 Range/Units 03:15 03:15 03:15 WBC 20.6 H (3.8-10.6) k/uL MCHC 30.5 L (31.0-37.0) g/dL Neutrophils # 18.8 H (1.3-7.7) k/uL Lymphocytes # 0.8 L (1.0-4.8) k/uL BUN 23 H (7-17) mg/dL Glucose 186 H (74-99) mg/dL Alkaline Phosphatase 138 H (38-126) U/L CK-MB (CK-2) 2.7 H (0.0-2.4) ng/mL Troponin I 0.090 H* (0.000-0.034) ng/mL Urine Protein (Negative) Urine Blood (Negative) Urine RBC (0-5) /hpf Urine Bacteria (None) /hpf Hyaline Casts (0-2) /lpf Urine Mucus (None) /hpf 07/06/18 Range/Units 04:41 WBC (3.8-10.6) k/uL MCHC (31.0-37.0) g/dL Neutrophils # (1.3-7.7) k/uL Lymphocytes # (1.0-4.8) k/uL BUN (7-17) mg/dL Glucose (74-99) mg/dL Alkaline Phosphatase (38-126) U/L CK-MB (CK-2) (0.0-2.4) ng/mL Troponin I (0.000-0.034) ng/mL Urine Protein 2+ H (Negative) Urine Blood Trace H (Negative) Urine RBC 10 H (0-5) /hpf Urine Bacteria Occasional H (None) /hpf Hyaline Casts 4 H (0-2) /lpf Urine Mucus Rare H (None) /hpf Thrombosis Risk Factor Assmnt - Choose All That Apply Any of the Below Risk Factors Present?: Yes Each Factor Represents 1 point: Abnormal pulmonary function (COPD) Other Risk Factors: Yes Each Risk Factor Represents 3 Points: Age 75 years or older Thrombosis Risk Factor Assessment Total Risk Factor Score: 4 Thrombosis Risk Factor Assessment Level: Moderate Risk Assessment and Plan Plan: Altered mental status: Either secondary to his heart failure exacerbation pneumonia I cannot rule out either. Patient was started on IV Lasix which will be continued patient is on gentler diuretic therapy, cardiology was consulted. -Pneumonia, patient admitted to be treated for healthcare associated pneumonia because of her recent hospital physician patient was started on Zosyn patient does have leukocytosis no fever. And sputum cultures and blood cultures patient has neutropenic leukocytosis with WBC count going up to 20,000 -Congestive heart failure chronic systolic dysfunction ejection fraction of 3035 % with acute exacerbation continue with the gentle the diuretic therapy -Hyperlipidemia hypertension -dementia and advanced probably dementia of Alzheimer's type or vascular dementia, will use antipsychotics on as-needed basis for agitation
[2018-07-06] MEDS: CARVEDILOL 3.125 MG TAB PO SCH (17:22)
[2018-07-06] MEDS: PIPERACILLIN-TAZOBACTAM 3.375 GM in SODIUM CHLORIDE 0.9% 100 ML IVPB SCH (18:07)
[2018-07-06] MEDS: LISINOPRIL 5 MG TAB PO SCH (20:33)
[2018-07-06] MEDS: ATORVASTATIN 40 MG TAB PO SCH (20:33)
[2018-07-06] MEDS: DONEPEZIL 10 MG TAB PO SCH (20:33)
[2018-07-06] MEDS: DOCUSATE 100 MG CAP PO SCH (20:33)
[2018-07-06] MEDS: SYMBICORT 80-4.5 MCG INHALER INHALATION SCH (21:37)
[2018-07-07] MEDS: PIPERACILLIN-TAZOBACTAM 3.375 GM in SODIUM CHLORIDE 0.9% 100 ML IVPB SCH ×3 (02:34→17:23)
[2018-07-07] MEDS: CARVEDILOL 3.125 MG TAB PO SCH (06:59)
[2018-07-07] MEDS: FUROSEMIDE 10 MG/ML 4 ML VIAL IV SCH (06:59)
[2018-07-07 07:05] LABS: Calcium 9.1 mg/dL (8.4-10.2); Potassium 4.1 mmol/L (3.5-5.1)
[2018-07-07] MEDS: PANTOPRAZOLE 40 MG TABLET PO SCH (08:03)
[2018-07-07] MEDS: ASPIRIN 81 MG PO SCH (08:03)
[2018-07-07] MEDS: METHIMAZOLE 5 MG TAB PO SCH (08:03)
[2018-07-07] MEDS: DOCUSATE 100 MG CAP PO SCH ×2 (08:03→19:51)
[2018-07-07] MEDS: LISINOPRIL 5 MG TAB PO SCH (08:03)
--- NOTE | 2018-07-07 08:17 | P.CRDCN ---
History of Present Illness Consult date: 07/06/18 Requesting physician: Sarah Benavides Reason for Consult (text): CHF exacerbation Chief complaint: patient denies complaints History of present illness: This is a pleasantly confused 82-year-old female patient who is not quite sure why she is in the hospital. She is a poor historian due to advanced dementia. When asked she says she was seen by her regular doctor and he didn't like something he saw so sent her to the hospital. Complains of "a little" shortness of breath. She denies orthopnea or PND. She denies edema. She has a history of dementia, hyperlipidemia, hypertension, AAA, coronary artery bypass grafting which she says was done 3 years ago but chart states between 2007 and 2009. Chest x-ray on admission showed diffuse airspace opacities which could represent pulmonary edema versus an infectious process. EKG on admission showed sinus tachycardia with PVCs, ST-T wave abnormalities and IVCD. Laboratory values showed a white blood cell count of 20,000, BUN of 23, creatinine 0.99, troponin 0.090 and NT proBNP of 11,200. Echocardiogram from last month showed moderate to severely impaired LV systolic function with an ejection fraction between 30-35%, mild MR and mild TR with a normally functioning bioprosthetic aortic valve. She's been initiated on IV Lasix. Past Medical History Past Medical History: Dementia, Hyperlipidemia, Hypertension Additional Past Medical History / Comment(s): alzhimers, AAA History of Any Multi-Drug Resistant Organisms: VRE Date of last positivie culture/infection: 06/23/18 MDRO Source:: VRE URINE Past Surgical History: Coronary Bypass/CABG Additional Past Surgical History / Comment(s): cabg( between [id number]) Past Anesthesia/Blood Transfusion Reactions: Unable to Obtain Additional Past Anesthesia/Blood Transfusion Reaction / Comment(s): hallucination Past Psychological History: No Psychological Hx Reported Smoking Status: Former smoker Past Alcohol Use History: Occasional Additional Past Alcohol Use History / Comment(s): patient denies any alcohol use at this time, Past Drug Use History: None Reported - Past Family History Father Family Medical History: No Reported History Mother Additional Family Medical History / Comment(s): of old age Medications and Allergies Home Medications Medication Instructions Recorded Confirmed Type Atorvastatin [Lipitor] 40 mg PO HS 04/23/18 07/06/18 History Donepezil [Aricept] 10 mg PO HS 04/23/18 07/06/18 History Multivitamins, Thera [Multivitamin 1 tab PO DAILY 04/23/18 07/06/18 History (formulary)] Pantoprazole Sodium [Protonix] 40 mg PO DAILY #1 tablet. 04/24/18 07/06/18 Rx Aspirin [[place] Aspirin EC] 81 mg PO DAILY 06/24/18 07/06/18 History Budesonide/Formoterol Fumarate 2 puff INHALATION RT-Q12H 06/24/18 07/06/18 History [Symbicort 80-4.5 Mcg Inhaler] Carvedilol [Coreg] 3.125 mg PO BID 06/24/18 07/06/18 History Docusate [Colace] 100 mg PO Q12HR 06/24/18 07/06/18 History Ferrous Sulfate [Feosol] 325 mg PO BID 06/24/18 07/06/18 History Furosemide [Lasix] 40 mg PO DAILY 06/24/18 07/06/18 History Methimazole [Tapazole] 10 mg PO DAILY 06/24/18 07/06/18 History QUEtiapine [SEROquel] 25 mg PO HS #30 tab 06/24/18 07/06/18 Rx Allergies Allergy/AdvReac Type Severity Reaction Status Date / Time No Known Allergies Allergy Verified 07/06/18 07:19 Physical Exam Vitals: Vital Signs Temp Pulse Pulse Resp BP BP Pulse Ox 07/07/18 04:00 98.0 F 60 18 110/38 94 L 07/07/18 00:00 98.6 F 72 18 128/43 96 07/06/18 20:00 92 18 07/06/18 19:52 98.6 F 92 18 138/82 93 L 07/06/18 16:00 98.9 F 104 H 17 145/87 91 L 07/06/18 13:02 99.2 F 98 18 138/82 93 L 07/06/18 11:52 98.6 F 98 18 122/77 94 L 07/06/18 08:19 93 22 153/93 97 Intake and Output 07/06/18 07/07/18 07/07/18 22:59 06:59 14:59 Intake Total 240 Output Total 1 Balance -1 240 Intake: Oral 240 Output: Urine 1 Other: Voiding Method Toilet Toilet Diaper Diaper # Voids 1 1 Weight 44.8 kg PHYSICAL EXAMINATION: HEENT: Head is atraumatic, normocephalic. Pupils equal, round. Neck is supple. There is elevated jugular venous pressure. HEART EXAMINATION: Heart sounds regular, S1 and S2 with a systolic murmur. CHEST EXAMINATION: Lungs reveal crackles to bilateral lower lobes. No chest wall tenderness is noted on palpation or with deep breathing. ABDOMEN: Soft, nontender. Bowel sounds are heard. No organomegaly noted. EXTREMITIES: 2+ peripheral pulses with no evidence of peripheral edema and no calf tenderness noted. NEUROLOGIC patient is awake, alert and oriented x1-2. . Results 07/06/18 03:15 07/07/18 06:14 Comprehensive Metabolic Panel 07/07/18 Range/Units 06:14 Sodium 138 (137-145) mmol/L Potassium 4.1 (3.5-5.1) mmol/L Chloride 107 (98-107) mmol/L Carbon Dioxide 24 (22-30) mmol/L BUN 25 H (7-17) mg/dL Creatinine 1.32 H (0.52-1.04) mg/dL Glucose 104 H (74-99) mg/dL Calcium 9.1 (8.4-10.2) mg/dL Current Medications Generic Name Dose Route Start Last Admin Trade Name Freq PRN Reason Stop Dose Admin Aspirin 81 mg 07/07/18 09:00 07/07/18 08:03 Aspirin PO 81 mg DAILY MIKE Administration Atorvastatin Calcium 40 mg 07/06/18 21:00 07/06/18 20:33 Lipitor PO 40 mg HS MIKE Administration Budesonide/Formoterol Fumarate 2 puff 07/06/18 20:00 07/06/18 21:37 Symbicort 80-4.5 Mcg Inhaler INHALATION Not Given RT-Q12H MIKE Carvedilol 3.125 mg 07/06/18 17:30 07/07/18 06:59 Coreg PO 3.125 mg AC-BID MIKE Administration Docusate Sodium 100 mg 07/06/18 21:00 07/07/18 08:03 Colace PO 100 mg Q12HR MIKE Administration Donepezil HCl 10 mg 07/06/18 21:00 07/06/18 20:33 Aricept PO 10 mg HS MIKE Administration Furosemide 20 mg 07/06/18 06:00 07/07/18 06:59 Lasix IV 20 mg Q12H MIKE Administration Piperacillin Sod/Tazobactam 100 mls @ 25 mls/hr 07/06/18 18:00 07/07/18 02:34 Sod 3.375 gm/ Sodium Chloride IVPB 25 mls/hr Q8H MIKE Administration Lisinopril 5 mg 07/06/18 21:00 07/07/18 08:03 Zestril PO 5 mg BID MIKE Administration Methimazole 10 mg 07/07/18 09:00 07/07/18 08:03 Tapazole PO 10 mg DAILY MIKE Administration Pantoprazole Sodium 40 mg 07/07/18 09:00 07/07/18 08:03 Protonix PO 40 mg DAILY MIKE Administration Quetiapine Fumarate 25 mg 07/06/18 16:57 Seroquel PO HS PRN Agitation Sodium Chloride 10 ml 07/06/18 09:00 07/06/18 20:33 Saline Flush IV 10 ml BID MIKE Administration Intake and Output 07/06/18 07/07/18 07/07/18 22:59 06:59 14:59 Intake Total 240 Output Total 1 Balance -1 240 Intake: Oral 240 Output: Urine 1 Other: Voiding Method Toilet Toilet Diaper Diaper # Voids 1 1 Weight 44.8 kg 07/06/18 03:15 07/07/18 06:14 Assessment and Plan Assessment: #1 acute on chronic systolic congestive heart failure #2 health care ASSOCIATED PNEUMONIA #3 advanced dementia with altered mental status from baseline #4 hypertension #5 hyperlipidemia #6 history of CAD with prior coronary artery bypass grafting #7 history of bioprosthetic aortic valve Plan: From cardiology's perspective, we will continue IV Lasix. We will resume the patient's beta ramo will add low-dose aspirin, statin and SAUL inhibitor. Continue to monitor daily weights, intake and output as well as renal function and electrolytes. We will continue to follow the patient and provide further recommendations accordingly. BREAKER UP note has been reviewed, I agree with a documented findings and plan of care. Patient was seen and examined.
[2018-07-07] MEDS: SYMBICORT 80-4.5 MCG INHALER INHALATION SCH ×2 (09:26→21:03)
--- NOTE | 2018-07-07 10:43 | P.PN ---
Subjective 82-year-old the was admitted secondary to shortness of breath which is mostly secondary to congestive heart failure exacerbation as repeat chest x-ray showed improved infiltrate, possibility of Coumadin quite pneumonia cannot be ruled out because of which I'll continue on Zosyn for now. Patient is bit hypotensive , mild worsening in creatinine looks much better today will cut down lisinopril to 5 mg daily repeat basic metabolic profile tomorrow, will change Coreg to metoprolol and and Lasix to oral Constitutional: Denied any fatigue denied any fever. Cardio vascular: denied any chest pain, palpitations Gastrointestinal denied any nausea vomiting Pulmonary: Denied any shortness of breath cough Neurologic denied any new focal deficits All inpatient medications were reviewed and appropriate changes in these medications as dictated in the interval history and assessment and plan. Objective - Vital Signs Vital signs: Vital Signs Temp 98 F 07/07/18 08:10 Pulse 59 L 07/07/18 08:10 Resp 18 07/07/18 08:10 BP 90/52 07/07/18 08:10 Pulse Ox 95 07/07/18 08:10 Intake & Output 07/06/18 07/07/18 07/07/18 18:59 06:59 18:59 Intake Total 200 240 Output Total 1 Balance 199 240 Weight 44.8 kg Intake: Oral 200 240 Output: Urine 1 Other: Voiding Method Toilet Diaper # Voids 1 1 - Exam PHYSICAL EXAMINATION: GENERAL: The patient is alert and oriented x1-2 which is her baseline, not in any acute distress. And will female HEENT: Pupils are round and equally reacting to light. EOMI. No scleral icterus. No conjunctival pallor. Normocephalic, atraumatic. No pharyngeal erythema. No thyromegaly. CARDIOVASCULAR: S1 and S2 present. No murmurs, rubs, or gallops. PULMONARY: Clear to auscultation no crackles or wheezing ABDOMEN: Soft, nontender, nondistended, normoactive bowel sounds. No palpable organomegaly. MUSCULOSKELETAL: No joint swelling or deformity. EXTREMITIES: No cyanosis, clubbing, or pedal edema. NEUROLOGICAL: Gross neurological examination did not reveal any focal deficits. SKIN: No rashes. - Labs CBC & Chem 7: 07/06/18 03:15 07/07/18 06:14 Labs: Abnormal Lab Results - Last 24 Hours (Table) 07/07/18 Range/Units 06:14 BUN 25 H (7-17) mg/dL Creatinine 1.32 H (0.52-1.04) mg/dL Glucose 104 H (74-99) mg/dL Microbiology - Last 24 Hours (Table) 07/06/18 03:15 Blood Culture - Preliminary Blood No Growth after 24 hours Assessment and Plan Plan: Altered mental status: Probably congestive heart failure chronic systolic dysfunction with acute exacerbation possibility of pneumonia is low. -Pneumonia, will be treated for healthcare associated pneumonia because of her recent hospital physician patient was started on Zosyn patient does have leukocytosis no fever. And sputum cultures and blood cultures patient has neutropenic leukocytosis with WBC count going up to 20,000, now improved -Congestive heart failure chronic systolic dysfunction ejection fraction of 30- 35% with acute exacerbation continue with the gentle the diuretic therapy -Hyperlipidemia hypertension -dementia and advanced probably dementia of Alzheimer's type or vascular dementia, will use antipsychotics on as-needed basis for agitation
--- NOTE | 2018-07-07 12:56 | P.PN ---
Subjective Progress Note Date: 07/07/18 This is a pleasantly confused 82-year-old female patient who is not quite sure why she is in the hospital. She is a poor historian due to advanced dementia. When asked she says she was seen by her regular doctor and he didn't like something he saw so sent her to the hospital. Complains of "a little" shortness of breath. She denies orthopnea or PND. She denies edema. She has a history of dementia, hyperlipidemia, hypertension, AAA, coronary artery bypass grafting which she says was done 3 years ago but chart states between 2007 and 2009. Chest x-ray on admission showed diffuse airspace opacities which could represent pulmonary edema versus an infectious process. EKG on admission showed sinus tachycardia with PVCs, ST-T wave abnormalities and IVCD. Laboratory values showed a white blood cell count of 20,000, BUN of 23, creatinine 0.99, troponin 0.090 and NT proBNP of 11,200. Echocardiogram from last month showed moderate to severely impaired LV systolic function with an ejection fraction between 30-35%, mild MR and mild TR with a normally functioning bioprosthetic aortic valve. She's been initiated on IV Lasix. 07/07/18 The patient was seen and examined today. Overall she verbalizes feeling better. Denies complaints of shortness of breath. Every time he values showed increase in BUN and creatinine 25 and 1.32. Lasix has been changed to 20 mg by mouth twice a day by primary. She is also noted to have some hypotension and carvedilol was changed to metoprolol. Objective - Vital Signs Vital signs: Vital Signs Temp 98 F 07/07/18 08:10 Pulse 68 07/07/18 12:00 Resp 17 07/07/18 12:00 BP 101/51 07/07/18 12:00 Pulse Ox 91 L 07/07/18 12:00 Intake & Output 07/06/18 07/07/18 07/07/18 18:59 06:59 18:59 Intake Total 200 240 Output Total 1 Balance 199 240 Weight 44.8 kg Intake: Oral 200 240 Output: Urine 1 Other: Voiding Method Toilet Incontinent Diaper # Voids 1 2 - Exam PHYSICAL EXAMINATION: HEENT: Head is atraumatic, normocephalic. Pupils equal, round. Neck is supple. There is no elevated jugular venous pressure. HEART EXAMINATION: Heart sounds regular, S1 and S2 with a systolic murmur. CHEST EXAMINATION: Lungs are clear to auscultation and precussion. No chest wall tenderness is noted on palpation or with deep breathing. ABDOMEN: Soft, nontender. Bowel sounds are heard. No organomegaly noted. EXTREMITIES: 2+ peripheral pulses with no evidence of peripheral edema and no calf tenderness noted. NEUROLOGIC patient is awake, alert and oriented x1-2. . - Labs CBC & Chem 7: 07/06/18 03:15 07/07/18 06:14 Labs: Abnormal Lab Results - Last 24 Hours (Table) 07/07/18 Range/Units 06:14 BUN 25 H (7-17) mg/dL Creatinine 1.32 H (0.52-1.04) mg/dL Glucose 104 H (74-99) mg/dL Microbiology - Last 24 Hours (Table) 07/06/18 03:15 Blood Culture - Preliminary Blood No Growth after 24 hours Assessment and Plan Assessment: #1 acute on chronic systolic congestive heart failure #2 health care ASSOCIATED PNEUMONIA #3 advanced dementia with altered mental status from baseline #4 hypertension #5 hyperlipidemia #6 history of CAD with prior coronary artery bypass grafting #7 history of bioprosthetic aortic valve Plan: From cardiology's perspective, and indications were reviewed and we will continue the same. Continue to follow renal function and electrolytes. Further recommendations to follow. PROFILE SAW OPERATOR note has been reviewed, I agree with a documented findings and plan of care. Patient was seen and examined.
[2018-07-07] MEDS: FUROSEMIDE 20 MG TAB PO SCH (16:39)
[2018-07-07 17:17] VITALS: BMI 15.9
--- NOTE | 2018-07-07 18:43 | XR ---
EXAMINATION TYPE: XR chest 1V DATE OF EXAM: 07/07/2018 COMPARISON: 07/06/2018 INDICATION: CHF TECHNIQUE: Single frontal view of the chest is obtained. FINDINGS: The heart size is mildly prominent. The pulmonary vasculature is upper limits of normal. Suspicious consolidations are not evident. IMPRESSION: 1. Mild cardiomegaly with prominent pulmonary vascular markings. Correlate for early volume overload. Follow-up exams can be performed as clinically indicated.
[2018-07-07] MEDS: ATORVASTATIN 40 MG TAB PO SCH (19:52)
[2018-07-07] MEDS: DONEPEZIL 10 MG TAB PO SCH (19:52)
[2018-07-07] MEDS: METOPROLOL TARTRATE 12.5 MG TAB PO SCH (19:52)
[2018-07-08] MEDS: PIPERACILLIN-TAZOBACTAM 3.375 GM in SODIUM CHLORIDE 0.9% 100 ML IVPB SCH ×3 (02:41→17:25)
[2018-07-08 06:26] LABS: HCT 31.8 % (34.0-46.0); MCH 29.2 pg (25.0-35.0); MCHC 31.6 g/dL (31.0-37.0); MCV 92.5 fL (80.0-100.0); Mean Platelet Volume 7.2; Platelet Count 301 k/uL (150-450); RBC 3.44 m/uL (3.80-5.40); RDW 15.6 % (11.5-15.5); WBC 7.5 k/uL (3.8-10.6)
[2018-07-08 06:30] LABS: HGB 10.1 gm/dL (11.4-16.0)
[2018-07-08 06:34] LABS: Calcium 9.2 mg/dL (8.4-10.2); Potassium 3.9 mmol/L (3.5-5.1)
[2018-07-08] MEDS: SYMBICORT 80-4.5 MCG INHALER INHALATION SCH ×2 (07:48→20:21)
[2018-07-08] MEDS ORDERED: LISINOPRIL 5 MG TAB PO SCH (09:00)
[2018-07-08] MEDS: DOCUSATE 100 MG CAP PO SCH ×2 (09:19→20:54)
[2018-07-08] MEDS: PANTOPRAZOLE 40 MG TABLET PO SCH (09:19)
[2018-07-08] MEDS: METOPROLOL TARTRATE 12.5 MG TAB PO SCH ×2 (09:19→20:54)
[2018-07-08] MEDS: ASPIRIN 81 MG PO SCH (09:19)
[2018-07-08] MEDS: FUROSEMIDE 20 MG TAB PO SCH ×2 (09:19→17:25)
[2018-07-08] MEDS: METHIMAZOLE 5 MG TAB PO SCH (09:19)
--- NOTE | 2018-07-08 11:26 | P.PN ---
Subjective 82-year-old the was admitted secondary to shortness of breath which is mostly secondary to congestive heart failure exacerbation as repeat chest x-ray showed improved infiltrate, possibility of Coumadin quite pneumonia cannot be ruled out because of which I'll continue on Zosyn for now. Patient is bit hypotensive , mild worsening in creatinine looks much better today will cut down lisinopril to 5 mg daily repeat basic metabolic profile tomorrow, will change Coreg to metoprolol and and Lasix to oral. 07/08/2018 Patient mental status improved significantly better her creatinine continued to get worse because of which I'll hold off on lisinopril although she received lisinopril already today we will the recheck basic metabolic profile tomorrow patient can be transferred out of [facility] to care Constitutional: Denied any fatigue denied any fever. Cardio vascular: denied any chest pain, palpitations Gastrointestinal denied any nausea vomiting Pulmonary: Denied any shortness of breath cough Neurologic denied any new focal deficits All inpatient medications were reviewed and appropriate changes in these medications as dictated in the interval history and assessment and plan. Objective - Vital Signs Vital signs: Vital Signs Temp 96.8 F L 07/08/18 08:00 Pulse 57 L 07/08/18 08:00 Resp 18 07/08/18 04:00 BP 126/59 07/08/18 08:00 Pulse Ox 99 07/08/18 08:00 Intake & Output 07/07/18 07/08/18 07/08/18 18:59 06:59 18:59 Intake Total 480 100 240 Output Total 2 Balance 478 100 240 Weight 44.8 kg 47.5 kg Intake: IV 100 Piperacillin-Tazobactam 3 100 .375 gm In Sodium Chloride 0.9% 100 ml @ 25 mls/hr IVPB Q8H [facility] Rx#: [id number] Oral 480 240 Output: Urine 2 Other: Voiding Method Incontinent Incontinent # Voids 2 2 - Exam PHYSICAL EXAMINATION: GENERAL: The patient is alert and oriented [id number] is her baseline, not in any acute distress. And will female HEENT: Pupils are round and equally reacting to light. EOMI. No scleral icterus. No conjunctival pallor. Normocephalic, atraumatic. No pharyngeal erythema. No thyromegaly. CARDIOVASCULAR: S1 and S2 present. No murmurs, rubs, or gallops. PULMONARY: Clear to auscultation no crackles or wheezing ABDOMEN: Soft, nontender, nondistended, normoactive bowel sounds. No palpable organomegaly. MUSCULOSKELETAL: No joint swelling or deformity. EXTREMITIES: No cyanosis, clubbing, or pedal edema. NEUROLOGICAL: Gross neurological examination did not reveal any focal deficits. SKIN: No rashes. - Labs CBC & Chem 7: 07/08/18 05:54 07/08/18 05:54 Labs: Abnormal Lab Results - Last 24 Hours (Table) 07/08/18 07/08/18 Range/Units 05:54 05:54 RBC 3.44 L (3.80-5.40) m/uL Hgb 10.1 L D (11.4-16.0) gm/dL Hct 31.8 L (34.0-46.0) % RDW 15.6 H (11.5-15.5) % BUN 28 H (7-17) mg/dL Creatinine 1.45 H (0.52-1.04) mg/dL Microbiology - Last 24 Hours (Table) 07/06/18 03:15 Blood Culture - Preliminary Blood No Growth after 48 hours Assessment and Plan Plan: Altered mental status: Probably congestive heart failure chronic systolic dysfunction with acute exacerbation possibility of pneumonia is low. -Acute renal failure: Secondary to excessive diuretic therapy, lisinopril and hypotension by sublingual will be completed discontinued continue with oral diuretic therapy because of her continued mild pulmonary edema on x-ray. -Pneumonia, will be treated for healthcare associated pneumonia because of her recent hospital physician patient was started on Zosyn patient does have leukocytosis no fever. And sputum cultures and blood cultures patient has neutropenic leukocytosis with WBC count going up to 20,000, now improved -Congestive heart failure chronic systolic dysfunction ejection fraction of 30- 35% with acute exacerbation continue with the gentle the diuretic therapy -Hyperlipidemia hypertension -dementia and advanced probably dementia of Alzheimer's type or vascular dementia, will use antipsychotics on as-needed basis for agitation
--- NOTE | 2018-07-08 14:51 | P.PN ---
Subjective Progress Note Date: 07/08/18 This is a pleasantly confused 82-year-old female patient who is not quite sure why she is in the hospital. She is a poor historian due to advanced dementia. She has a history of dementia, hyperlipidemia, hypertension, AAA, coronary artery bypass grafting which she says was done 3 years ago but chart states between 2007 and 2009. Chest x-ray on admission showed diffuse airspace opacities which could represent pulmonary edema versus an infectious process. EKG on admission showed sinus tachycardia with PVCs, ST-T wave abnormalities and IVCD.Echocardiogram from last month showed moderate to severely impaired LV systolic function with an ejection fraction between 30-35%, mild MR and mild TR with a normally functioning bioprosthetic aortic valve. He is currently on by mouth diuretics. Blood pressure 126/60, continues to have productive cough. Objective - Vital Signs Vital signs: Vital Signs Temp 96.8 F L 07/08/18 08:00 Pulse 57 L 07/08/18 08:00 Resp 18 07/08/18 04:00 BP 126/59 07/08/18 08:00 Pulse Ox 99 07/08/18 08:00 Intake & Output 07/07/18 07/08/18 07/08/18 18:59 06:59 18:59 Intake Total 480 100 480 Output Total 2 Balance 478 100 480 Weight 44.8 kg 47.5 kg Intake: IV 100 Piperacillin-Tazobactam 3 100 .375 gm In Sodium Chloride 0.9% 100 ml @ 25 mls/hr IVPB Q8H [facility] Rx#: [id number] Oral 480 480 Output: Urine 2 Other: Voiding Method Incontinent Incontinent # Voids 2 2 1 - Exam PHYSICAL EXAMINATION: HEENT: Head is atraumatic, normocephalic. Pupils equal, round. Neck is supple. There is no elevated jugular venous pressure. HEART EXAMINATION: Heart sounds regular, S1 and S2 with a systolic murmur. CHEST EXAMINATION: Lungs reveal scattered coarse rhonchi throughout . No chest wall tenderness is noted on palpation or with deep breathing. Abdomen is soft, bowel sounds are heard. EXTREMITIES: 2+ peripheral pulses with no evidence of peripheral edema and no calf tenderness noted. NEUROLOGIC patient is awake, alert and oriented x1-2. . - Labs CBC & Chem 7: 07/08/18 05:54 02/11/19 05:54 Labs: Abnormal Lab Results - Last 24 Hours (Table) 07/08/18 07/08/18 Range/Units 05:54 05:54 RBC 3.44 L (3.80-5.40) m/uL Hgb 10.1 L D (11.4-16.0) gm/dL Hct 31.8 L (34.0-46.0) % RDW 15.6 H (11.5-15.5) % BUN 28 H (7-17) mg/dL Creatinine 1.45 H (0.52-1.04) mg/dL Microbiology - Last 24 Hours (Table) 07/06/18 03:15 Blood Culture - Preliminary Blood No Growth after 48 hours Assessment and Plan Plan: Assessment: #1 acute on chronic systolic congestive heart failure #2 health care ASSOCIATED PNEUMONIA #3 advanced dementia with altered mental status from baseline #4 hypertension #5 hyperlipidemia #6 history of CAD with prior coronary artery bypass grafting #7 history of bioprosthetic aortic valve Plan Cardiology's perspective, patient may be transferred to ECF once cleared by primary. We'll recommend to continue current medications. DNP note has been reviewed, I agree with a documented findings and plan of care. Patient was seen and examined.
[2018-07-08] MEDS: DONEPEZIL 10 MG TAB PO SCH (20:54)
[2018-07-08] MEDS: ATORVASTATIN 40 MG TAB PO SCH (20:54)
[2018-07-08 21:06] VITALS: RESP 16
[2018-07-09] MEDS: PIPERACILLIN-TAZOBACTAM 3.375 GM in SODIUM CHLORIDE 0.9% 100 ML IVPB SCH ×2 (03:05→11:58)
[2018-07-09] MEDS: PANTOPRAZOLE 40 MG TABLET PO SCH (08:24)
[2018-07-09] MEDS: ASPIRIN 81 MG PO SCH (08:24)
[2018-07-09] MEDS: DOCUSATE 100 MG CAP PO SCH (08:24)
[2018-07-09] MEDS: FUROSEMIDE 20 MG TAB PO SCH ×2 (08:25→17:09)
[2018-07-09] MEDS: METHIMAZOLE 5 MG TAB PO SCH (08:25)
[2018-07-09] MEDS: METOPROLOL TARTRATE 12.5 MG TAB PO SCH (08:25)
[2018-07-09 08:34] LABS: Calcium 9.1 mg/dL (8.4-10.2); Potassium 4.3 mmol/L (3.5-5.1)
[2018-07-09] MEDS: SYMBICORT 80-4.5 MCG INHALER INHALATION SCH (08:41)
[2018-07-09 12:19] VITALS: BP 147/54; PULSE 48; TEMP 97.6
--- NOTE | 2018-07-09 15:45 | P.DS ---
Providers Date of admission: 07/07/18 13:08 Attending physician: Jone Jimenez Consults: 07/06/18 05:49 Consult Physician Routine Consulting Provider: Neeta Escobedo Consult Reason/Comments: CHF exacerbation Do you want consulting provider notified?: Yes [facility] Course: 82-year-old the was admitted secondary to shortness of breath which is mostly secondary to congestive heart failure exacerbation as repeat chest x-ray showed improved infiltrate, possibility of Coumadin quite pneumonia cannot be ruled out because of which I'll continue on Zosyn for now. Patient is bit hypotensive , mild worsening in creatinine looks much better today will cut down lisinopril to 5 mg daily repeat basic metabolic profile tomorrow, will change Coreg to metoprolol and and Lasix to oral. 07/08/2018 Patient mental status improved significantly better her creatinine continued to get worse because of which I'll hold off on lisinopril although she received lisinopril already today we will the recheck basic metabolic profile tomorrow patient can be transferred out of [facility] to care 07/09/2018 Creatinine improved, patient was started on low-dose of lisinopril. Repeat basic metabolic profile as an outpatient. Patient was advised to go to subacute rehabilitation but the daughter wanted to take her home patient is definitely high risk for readmission if she goes home. She is fairly euvolemic at this time. Patient was discharged on 5 more days of Augmentin. PHYSICAL EXAMINATION: GENERAL: The patient is alert and oriented [id number] is her baseline, not in any acute distress. And will female HEENT: Pupils are round and equally reacting to light. EOMI. No scleral icterus. No conjunctival pallor. Normocephalic, atraumatic. No pharyngeal erythema. No thyromegaly. CARDIOVASCULAR: S1 and S2 present. No murmurs, rubs, or gallops. PULMONARY: Clear to auscultation no crackles or wheezing ABDOMEN: Soft, nontender, nondistended, normoactive bowel sounds. No palpable organomegaly. MUSCULOSKELETAL: No joint swelling or deformity. EXTREMITIES: No cyanosis, clubbing, or pedal edema. NEUROLOGICAL: Gross neurological examination did not reveal any focal deficits. SKIN: No rashes. Assessment and Plan Plan: Altered mental status: Secondary to congestive heart failure chronic systolic dysfunction with acute exacerbation possibility of pneumonia is low. Although pneumonia cannot be completely ruled out -Acute renal failure: Secondary to excessive diuretic therapy, lisinopril and hypotension improved now patient would asked started on low-dose of lisinopril -Pneumonia, will be treated for healthcare associated pneumonia because of her recent hospital physician patient was started on Zosyn patient does have leukocytosis no fever. And sputum cultures and blood cultures are negative leukocytosis improved -Congestive heart failure chronic systolic dysfunction ejection fraction of 30- 35% with acute exacerbation -Hyperlipidemia hypertension -dementia and advanced probably dementia of Alzheimer's type or vascular dementia, will use antipsychotics on as-needed basis for agitation Patient Condition at Discharge: Fair Plan - Discharge Summary Discharge Rx Participant: No New Discharge Prescriptions: New Amoxic-Pot Clav 875-125Mg [Augmentin 875-125] 1 tab PO Q12HR #10 tablet Furosemide [Lasix] 20 mg PO BID@0900,1600 #60 tab Metoprolol Tartrate [Lopressor] 12.5 mg PO BID #60 tab QUEtiapine [SEROquel] 25 mg PO HS PRN #30 tab PRN Reason: Agitation Lisinopril [Zestril] 2.5 mg PO DAILY #30 tab Continue Multivitamins, Thera [Multivitamin (formulary)] 1 tab PO DAILY Donepezil [Aricept] 10 mg PO HS Atorvastatin [Lipitor] 40 mg PO HS Pantoprazole Sodium [Protonix] 40 mg PO DAILY #1 tablet. Ferrous Sulfate [Feosol] 325 mg PO BID Budesonide/Formoterol Fumarate [Symbicort 80-4.5 Mcg Inhaler] 2 puff INHALATION RT-Q12H Docusate [Colace] 100 mg PO Q12HR Aspirin [Stone Aspirin EC] 81 mg PO DAILY Methimazole [Tapazole] 10 mg PO DAILY Discontinued QUEtiapine [SEROquel] 25 mg PO HS #30 tab Furosemide [Lasix] 40 mg PO DAILY Carvedilol [Coreg] 3.125 mg PO BID Discharge Medication List Atorvastatin [Lipitor] 40 mg PO HS 04/23/18 [History] Donepezil [Aricept] 10 mg PO HS 04/23/18 [History] Multivitamins, Thera [Multivitamin (formulary)] 1 tab PO DAILY 04/23/18 [History ] Pantoprazole Sodium [Protonix] 40 mg PO DAILY #1 tablet. 04/24/18 [Rx] Aspirin [Stone Aspirin EC] 81 mg PO DAILY 06/24/18 [History] Budesonide/Formoterol Fumarate [Symbicort 80-4.5 Mcg Inhaler] 2 puff INHALATION RT-Q12H 06/24/18 [History] Docusate [Colace] 100 mg PO Q12HR 06/24/18 [History] Ferrous Sulfate [Feosol] 325 mg PO BID 06/24/18 [History] Methimazole [Tapazole] 10 mg PO DAILY 06/24/18 [History] Amoxic-Pot Clav 875-125Mg [Augmentin 875-125] 1 tab PO Q12HR #10 tablet [Rx] Furosemide [Lasix] 20 mg PO BID@0900,1600 #60 tab 07/09/18 [Rx] Lisinopril [Zestril] 2.5 mg PO DAILY #30 tab 07/09/18 [Rx] Metoprolol Tartrate [Lopressor] 12.5 mg PO BID #60 tab 07/09/18 [Rx] QUEtiapine [SEROquel] 25 mg PO HS PRN #30 tab 07/09/18 [Rx] Follow up Appointment(s)/Referral(s): Siddharth Andrade MD [Primary Care Provider] - 1 Week [facility], [NON-STAFF] - Discharge Disposition: HOME WITH HOME HEALTH SERVICES
== END 2018-07-09 18:30 | disposition home health service (06) | DRG 291 ==
LOC: EC 02:19 → 1SOBS 05:52 → 3SCARD 06:31 → OBSVTOIN 07-07 13:08 → 3NMEDONC 07-08 21:29
PROVIDERS: ADMIT Hospitalist; ATTEND Hospitalist
DX: I11.0 Hypertensive heart disease with heart failure (principal); J18.9 Pneumonia, unspecified organism; N17.9 Acute kidney failure, unspecified; I50.23 Acute on chronic systolic (congestive) heart failure; Y95 Nosocomial condition; Z79.51 Long term (current) use of inhaled steroids; Z79.82 Long term (current) use of aspirin; Z79.899 Other long term (current) drug therapy; Z87.891 Personal history of nicotine dependence; Z95.1 Presence of aortocoronary bypass graft; Z95.3 Presence of xenogenic heart valve; D72.828 Other elevated white blood cell count; E78.5 Hyperlipidemia, unspecified; F01.50 Vascular dementia, unspecified severity, without behavioral disturbance, psychotic disturbance, mood disturbance, and anxiety; G30.9 Alzheimer's disease, unspecified; I25.10 Atherosclerotic heart disease of native coronary artery without angina pectoris; I49.3 Ventricular premature depolarization; R45.1 Restlessness and agitation; T50.2X5A Adverse effect of carbonic-anhydrase inhibitors, benzothiadiazides and other diuretics, initial encounter; I95.2 Hypotension due to drugs; T46.4X5A Adverse effect of angiotensin-converting-enzyme inhibitors, initial encounter
CPT/HCPCS: 36415; 71045; 80048; 80053; 81001; 82140; 82550; 82553; 83880; 84443; 84484; 85025; 85027; 85610; 85730; 87040; 93005; 94640; 96374; 99285

== ENCOUNTER 2018-11-08 22:03 | Inpatient (IN) | payer MEDICARE ==
[2018-11-08] MEDS ORDERED: SODIUM CHLORIDE 0.9% 1,000 ML IV STA (22:07)
--- NOTE | 2018-11-08 22:22 | ED ---
General Adult HPI - General Stated complaint: Altered Mental Status Time Seen by Provider: 11/08/18 22:07 - History of Present Illness Initial comments: Patient is a pleasantly demented 83-year-old female who is brought to the ED via EMS for evaluation of possible dehydration. She was provided by EMS, patient provides no meaningful history, when asked why she is here she states that she doesn't know. When asked if she is having any pain she states no. When asked if she has been eating and drinking well patient states he asked when advised that she is not been eating for 2 days she seems surprised by this. EMS was told by the family the patient has not been eating or drinking for 2 days she seems more confused than usual and there is concerned that she is dehydrated. - Related Data Home Medications Medication Instructions Recorded Confirmed Donepezil [Aricept] 10 mg PO HS 04/23/18 11/08/18 Multivitamins, Thera [Multivitamin 1 tab PO DAILY 04/23/18 11/08/18 (formulary)] Metoprolol Tartrate [Lopressor] 12.5 mg PO BID 11/08/18 11/08/18 QUEtiapine [SEROquel] 25 mg PO HS 11/08/18 11/08/18 amLODIPine [Norvasc] 10 mg PO DAILY 11/08/18 11/08/18 Previous Rx's Medication Instructions Recorded Furosemide [Lasix] 20 mg PO BID@0900,1600 #60 tab 07/09/18 Allergies Allergy/AdvReac Type Severity Reaction Status Date / Time No Known Allergies Allergy Verified 11/08/18 22:22 Review of Systems ROS Statement: Those systems with pertinent positive or pertinent negative responses have been documented in the HPI. ROS Other: All systems not noted in ROS Statement are negative. Limitations: ROS unobtainable due to patients medical condition (dementia) Past Medical History Past Medical History: Dementia, Hyperlipidemia, Hypertension Additional Past Medical History / Comment(s): DAVID rosen History of Any Multi-Drug Resistant Organisms: VRE Date of last positivie culture/infection: 06/23/18 MDRO Source:: VRE URINE Past Surgical History: Coronary Bypass/CABG Additional Past Surgical History / Comment(s): cabg( between [id number]) Past Anesthesia/Blood Transfusion Reactions: Unable to Obtain Additional Past Anesthesia/Blood Transfusion Reaction / Comment(s): hallucination Past Psychological History: No Psychological Hx Reported Smoking Status: Former smoker Past Alcohol Use History: Occasional Additional Past Alcohol Use History / Comment(s): patient denies any alcohol use at this time, Past Drug Use History: None Reported - Past Family History Father Family Medical History: No Reported History Mother Additional Family Medical History / Comment(s): of old age General Exam - General Exam Comments Initial Comments: Physical Exam GENERAL: Dehydrated elderly female HENT: Normocephalic, Atraumatic. EYES: PERRL, EOMI PULMONARY: Unlabored respirations CARDIOVASCULAR: RRR ABDOMEN: Soft and nontender with normal bowel sounds. SKIN: Dry, skin tenting : Deferred NEUROLOGIC: Oriented to self MUSCULOSKELETAL: Generalized muscular atrophy PSYCHIATRIC: pleasantly demented Course Vital Signs 11/08/18 11/09/18 22:15 01:48 Temperature 97.8 F Pulse Rate 111 H 82 Respiratory 20 18 Rate Blood Pressure 195/105 170/106 O2 Sat by Pulse 98 96 Oximetry EKG Findings - EKG Comments: EKG Findings:: EKG was obtained at 2215, rate is 97 rhythm is sinus there is a leftward axis there is a left bundle branch block, IA is 128, QRS 126, QTC is [address] elevations or depressions there is no evidence of acute ischemia or infarction. Medical Decision Making - Medical Decision Making The patient was seen and evaluated, history was obtained from EMS and patient's daughter This is an 83-year-old female whose has not been eating or drinking for 2 days. Daughter reports it was like something happened 2 nights ago and the patient just woke up with much worsening dementia. She reports that her mom is not eating or drinking for 2 days she has not taken any of her medications. Labs and imaging were ordered Labs consistent with dehydration, hypernatremia, he has a mildly elevated troponin mildly elevated patient continues to deny chest pain Patient's mother states the patient has not complained of any chest pain Were discussed with the patient's mother who agrees with plan for admission for rehydration however she states that the patient has been made DO NOT RESUSCITATE and would not want any invasive procedures. At this time we will plan to admit the patient, transient her labs and fluid resuscitate. - Lab Data Result diagrams: 11/08/18 22:32 11/08/18 22:32 Lab Results 06/11/08/18 11/08/18 Range/Units 22:25 22:32 22:32 WBC 11.1 H (3.8-10.6) k/uL RBC 4.37 (3.80-5.40) m/uL Hgb 12.4 (11.4-16.0) gm/dL Hct 39.7 (34.0-46.0) % MCV 91.0 (80.0-100.0) fL MCH 28.4 (25.0-35.0) pg MCHC 31.3 (31.0-37.0) g/dL RDW 16.5 H (11.5-15.5) % Plt Count 348 (150-450) k/uL Neutrophils % 89 % Lymphocytes % 5 % Monocytes % 4 % Eosinophils % 1 % Basophils % 0 % Neutrophils # 9.9 H (1.3-7.7) k/uL Lymphocytes # 0.5 L (1.0-4.8) k/uL Monocytes # 0.5 (0-1.0) k/uL Eosinophils # 0.1 (0-0.7) k/uL Basophils # 0.0 (0-0.2) k/uL Anisocytosis Slight Sodium 148 H (137-145) mmol/L Potassium 4.0 (3.5-5.1) mmol/L Chloride 118 H (98-107) mmol/L Carbon Dioxide 16 L (22-30) mmol/L Anion Gap 14 mmol/L BUN 41 H (7-17) mg/dL Creatinine 1.14 H (0.52-1.04) mg/dL Est GFR (CKD-EPI)AfAm 51 (>60 ml/min/1.73 sqM) Est GFR (CKD-EPI)NonAf 45 (>60 ml/min/1.73 sqM) Glucose 149 H (74-99) mg/dL POC Glucose (mg/dL) 135 H (75-99) mg/dL POC Glu Binding Cutter ID Salgat, Fina Lactic Ac Sepsis Rflx Plasma Lactic Acid Damion (0.7-2.0) mmol/L Calcium 9.2 (8.4-10.2) mg/dL Magnesium 1.9 (1.6-2.3) mg/dL Total Bilirubin 1.0 (0.2-1.3) mg/dL AST 42 H (14-36) U/L ALT 12 (9-52) U/L Alkaline Phosphatase 126 (38-126) U/L Troponin I (0.000-0.034) ng/mL Total Protein 7.5 (6.3-8.2) g/dL Albumin 4.0 (3.5-5.0) g/dL Amylase 86 (30-110) U/L Lipase 51 (23-300) U/L Urine Color Urine Appearance (Clear) Urine pH (5.0-8.0) Ur Specific [place] (1.001-1.035) Urine Protein (Negative) Urine Glucose (UA) (Negative) Urine Ketones (Negative) Urine Blood (Negative) Urine Nitrite (Negative) Urine Bilirubin (Negative) Urine Urobilinogen (<2.0) mg/dL Ur Leukocyte Esterase (Negative) Urine RBC (0-5) /hpf Urine WBC (0-5) /hpf Urine Mucus (None) /hpf 11/08/18 11/08/18 11/08/18 Range/Units 22:32 22:32 22:32 WBC (3.8-10.6) k/uL RBC (3.80-5.40) m/uL Hgb (11.4-16.0) gm/dL Hct (34.0-46.0) % MCV (80.0-100.0) fL MCH (25.0-35.0) pg MCHC (31.0-37.0) g/dL RDW (11.5-15.5) % Plt Count (150-450) k/uL Neutrophils % % Lymphocytes % % Monocytes % % Eosinophils % % Basophils % % Neutrophils # (1.3-7.7) k/uL Lymphocytes # (1.0-4.8) k/uL Monocytes # (0-1.0) k/uL Eosinophils # (0-0.7) k/uL Basophils # (0-0.2) k/uL Anisocytosis Sodium (137-145) mmol/L Potassium (3.5-5.1) mmol/L Chloride (98-107) mmol/L Carbon Dioxide (22-30) mmol/L Anion Gap mmol/L BUN (7-17) mg/dL Creatinine (0.52-1.04) mg/dL Est GFR (CKD-EPI)AfAm (>60 ml/min/1.73 sqM) Est GFR (CKD-EPI)NonAf (>60 ml/min/1.73 sqM) Glucose (74-99) mg/dL POC Glucose (mg/dL) (75-99) mg/dL POC Glu Binding Cutter ID Lactic Ac Sepsis Rflx Plasma Lactic Acid Damion 2.3 H* (0.7-2.0) mmol/L Calcium (8.4-10.2) mg/dL Magnesium (1.6-2.3) mg/dL Total Bilirubin (0.2-1.3) mg/dL AST (14-36) U/L ALT (9-52) U/L Alkaline Phosphatase (38-126) U/L Troponin I 0.134 H* (0.000-0.034) ng/mL Total Protein (6.3-8.2) g/dL Albumin (3.5-5.0) g/dL Amylase (30-110) U/L Lipase (23-300) U/L Urine Color Yellow Urine Appearance Clear (Clear) Urine pH 6.0 (5.0-8.0) Ur Specific [place] 1.020 (1.001-1.035) Urine Protein 3+ H (Negative) Urine Glucose (UA) Negative (Negative) Urine Ketones Trace H (Negative) Urine Blood Moderate H (Negative) Urine Nitrite Negative (Negative) Urine Bilirubin Negative (Negative) Urine Urobilinogen <2.0 (<2.0) mg/dL Ur Leukocyte Esterase Negative (Negative) Urine RBC 1 (0-5) /hpf Urine WBC 3 (0-5) /hpf Urine Mucus Rare H (None) /hpf 11/08/18 Range/Units 22:57 WBC (3.8-10.6) k/uL RBC (3.80-5.40) m/uL Hgb (11.4-16.0) gm/dL Hct (34.0-46.0) % MCV (80.0-100.0) fL MCH (25.0-35.0) pg MCHC (31.0-37.0) g/dL RDW (11.5-15.5) % Plt Count (150-450) k/uL Neutrophils % % Lymphocytes % % Monocytes % % Eosinophils % % Basophils % % Neutrophils # (1.3-7.7) k/uL Lymphocytes # (1.0-4.8) k/uL Monocytes # (0-1.0) k/uL Eosinophils # (0-0.7) k/uL Basophils # (0-0.2) k/uL Anisocytosis Sodium (137-145) mmol/L Potassium (3.5-5.1) mmol/L Chloride (98-107) mmol/L Carbon Dioxide (22-30) mmol/L Anion Gap mmol/L BUN (7-17) mg/dL Creatinine (0.52-1.04) mg/dL Est GFR (CKD-EPI)AfAm (>60 ml/min/1.73 sqM) Est GFR (CKD-EPI)NonAf (>60 ml/min/1.73 sqM) Glucose (74-99) mg/dL POC Glucose (mg/dL) (75-99) mg/dL POC Glu Binding Cutter ID Lactic Ac Sepsis Rflx Y Plasma Lactic Acid Damion (0.7-2.0) mmol/L Calcium (8.4-10.2) mg/dL Magnesium (1.6-2.3) mg/dL Total Bilirubin (0.2-1.3) mg/dL AST (14-36) U/L ALT (9-52) U/L Alkaline Phosphatase (38-126) U/L Troponin I (0.000-0.034) ng/mL Total Protein (6.3-8.2) g/dL Albumin (3.5-5.0) g/dL Amylase (30-110) U/L Lipase (23-300) U/L Urine Color Urine Appearance (Clear) Urine pH (5.0-8.0) Ur Specific [place] (1.001-1.035) Urine Protein (Negative) Urine Glucose (UA) (Negative) Urine Ketones (Negative) Urine Blood (Negative) Urine Nitrite (Negative) Urine Bilirubin (Negative) Urine Urobilinogen (<2.0) mg/dL Ur Leukocyte Esterase (Negative) Urine RBC (0-5) /hpf Urine WBC (0-5) /hpf Urine Mucus (None) /hpf Disposition Clinical Impression: Lactic acidosis, Bradycardia, Altered mental status, Elevated troponin, Anorex ia Disposition: ADMITTED IP TO THIS HOSP Condition: Serious
[2018-11-08 22:41] LABS: Anisocytosis Slight; Basophils % (A) 0 %; Eosinophils # (A) 0.1 k/uL (0-0.7); Eosinophils % (A) 1 %; HCT 39.7 % (34.0-46.0); HGB 12.4 gm/dL (11.4-16.0); Lymphocytes # (A) 0.5 k/uL (1.0-4.8); Lymphocytes % (A) 5 %; MCH 28.4 pg (25.0-35.0); MCHC 31.3 g/dL (31.0-37.0); Mean Platelet Volume 7.4; Monocytes # (A) 0.5 k/uL (0-1.0); Monocytes % (A) 4 %; Neutrophils # (A) 9.9 k/uL (1.3-7.7); Neutrophils % (A) 89 %; Platelet Count 348 k/uL (150-450); RBC 4.37 m/uL (3.80-5.40); RDW 16.5 % (11.5-15.5); WBC 11.1 k/uL (3.8-10.6)
[2018-11-08 22:44] LABS: Appearance,Urine Clear (Clear); Bilirubin,Urine Negative (Negative); Blood,Urine Moderate (Negative); Color,Urine Yellow; Glucose,Urine (UA) Negative (Negative); Ketones,Urine Trace (Negative); Leukocyte Esterase,Urine Negative (Negative); Mucus,Urine Rare /hpf; Nitrite,Urine Negative (Negative); Protein,Urine 3+ (Negative); RBC,Urine 1 /hpf (0-5); Urobilinogen,Urine <2.0 mg/dL (<2.0)
[2018-11-08 22:45] LABS: Glucose,Whole Blood 135 mg/dL (75-99)
[2018-11-08 22:52] LABS: Calcium 9.2 mg/dL (8.4-10.2); Magnesium 1.9 mg/dL (1.6-2.3); Total Protein 7.5 g/dL (6.3-8.2)
--- NOTE | 2018-11-08 23:13 | XR ---
EXAM: XR Abdomen, 1 View CLINICAL HISTORY: ITS.REASON XR Reason: abdominal pain, no PO intake x2 days TECHNIQUE: Frontal supine view of the abdomen/pelvis. COMPARISON: CT abdomen pelvis 04/23/2018. FINDINGS: Gastrointestinal tract: Nonobstructive bowel gas pattern with large colonic stool burden. Bones/joints: Dextroscoliosis of the lumbar spine. Arthrosis of the femoral acetabular joints. Degenerative change throughout the spine. Vasculature: Postprocedure change related to endovascular abdominal aortic aneurysm repair. Extensive vascular calcifications. IMPRESSION: Nonobstructive bowel gas pattern with large colonic stool burden. Recommend correlation for constipation. If there is clinical concern for bowel obstruction, recommend evaluation with CT.
--- NOTE | 2018-11-08 23:15 | XR ---
EXAM: XR Chest, 1 View CLINICAL HISTORY: ITS.REASON XR Reason: abdominal pain TECHNIQUE: Frontal view of the chest. COMPARISON: Chest radiograph 07/07/2018. FINDINGS: Lungs: Unremarkable. No consolidation. Pleural space: Unremarkable. No pneumothorax. Heart: Cardiomegaly with reticular thickening and patchy opacities in the lungs. Mediastinum: Unremarkable. Bones/joints: Scoliosis. Vasculature: Atherosclerotic calcifications in the thoracic aorta. IMPRESSION: Cardiomegaly with reticular thickening and patchy opacities in the lungs. This may represent heart failure with infection not excluded.
[2018-11-08] MEDS: SODIUM CHLORIDE 0.9% 1,000 ML IV SCH (23:32)
[2018-11-09] MEDS ORDERED: NITROGLYCERIN SL TABS 0.4 MG TAB SUBLINGUAL PRN (00:37)
[2018-11-09] MEDS: METOPROLOL TARTRATE 5 MG/5 ML VIAL IVP SCH ×8 (00:53→02:48)
[2018-11-09] MEDS: SODIUM CHLORIDE 0.9% 1,000 ML IV SCH ×3 (01:36→21:50)
[2018-11-09] MEDS: METOPROLOL TARTRATE 25 MG TAB PO SCH ×3 (01:36→21:43)
[2018-11-09] MEDS ORDERED: METOPROLOL TARTRATE 25 MG TAB PO STA (02:51)
[2018-11-09] MEDS: amLODIPine 5 MG TAB PO SCH ×3 (03:22→21:43)
[2018-11-09 06:55] LABS: Anisocytosis Slight; HCT 38.6 % (34.0-46.0); HGB 11.8 gm/dL (11.4-16.0); Hypochromasia Marked; MCHC 30.5 g/dL (31.0-37.0); Mean Platelet Volume 7.9; Platelet Count 315 k/uL (150-450); RDW 16.3 % (11.5-15.5); WBC 13.8 k/uL (3.8-10.6)
[2018-11-09 08:59] LABS: Appearance,Urine Cloudy (Clear); Bacteria,Urine Moderate /hpf; Bilirubin,Urine Negative (Negative); Blood,Urine Small (Negative); Color,Urine Yellow; Glucose,Urine (UA) Negative (Negative); Hyaline Casts,Urine 4 /lpf (0-2); Ketones,Urine Trace (Negative); Leukocyte Esterase,Urine Negative (Negative); Mucus,Urine Rare /hpf; Nitrite,Urine Negative (Negative); Protein,Urine 3+ (Negative); RBC,Urine 2 /hpf (0-5); Specific Gravity,Urine 1.016 (1.001-1.035); Squamous Epithelial Cell,Urine 1 /hpf (0-4); Urobilinogen,Urine <2.0 mg/dL (<2.0); WBC,Urine 6 /hpf (0-5)
--- NOTE | 2018-11-09 15:54 | P.CRDCN ---
History of Present Illness Consult date: 11/09/18 History of present illness: This 84-year-old female with history of dementia who was admitted through the emergency room. Apparently there is a history suggestive of possible dehydration. Patient is alert but unable to give any detailed history. Doesn't appear to be in acute distress. She is lying flat in bed without any significant shortness of breath. Apparently patient was confused and was brought to the emergency room by the family. Her chest x-rays size to possible CHF. Her proBNP is elevated. Her echocardiogram in the past showed impaired LV function with cardiomyopathy and ejection fraction about 30-35%. At this point I'm going to resume her Lasix and continue rest of the medication. There is no evidence any significant JVD. Lungs appeared to be relatively clear and there is no significant edema. Her creatinine is about 1.2 and it doesn't appear that patient is that was dehydrated. We'll see her as needed Review of Systems As per the chart Past Medical History Past Medical History: Dementia, Hyperlipidemia, Hypertension Additional Past Medical History / Comment(s): DAVID rosen History of Any Multi-Drug Resistant Organisms: VRE Date of last positivie culture/infection: 06/23/18 MDRO Source:: VRE URINE Past Surgical History: Coronary Bypass/CABG Additional Past Surgical History / Comment(s): cabg( between [id number]) Past Anesthesia/Blood Transfusion Reactions: Unable to Obtain Additional Past Anesthesia/Blood Transfusion Reaction / Comment(s): hallucination Past Psychological History: No Psychological Hx Reported Smoking Status: Former smoker Past Alcohol Use History: Occasional Additional Past Alcohol Use History / Comment(s): patient denies any alcohol use at this time, Past Drug Use History: None Reported - Past Family History Father Family Medical History: No Reported History Mother Additional Family Medical History / Comment(s): of old age Medications and Allergies Home Medications Medication Instructions Recorded Confirmed Type Donepezil [Aricept] 10 mg PO HS 04/23/18 11/08/18 History Multivitamins, Thera [Multivitamin 1 tab PO DAILY 04/23/18 11/08/18 History (formulary)] Furosemide [Lasix] 20 mg PO BID@0900,1600 #60 tab 07/09/18 11/08/18 Rx Metoprolol Tartrate [Lopressor] 12.5 mg PO BID 11/08/18 11/08/18 History QUEtiapine [SEROquel] 25 mg PO HS 11/08/18 11/08/18 History amLODIPine [Norvasc] 10 mg PO DAILY 11/08/18 11/08/18 History Allergies Allergy/AdvReac Type Severity Reaction Status Date / Time No Known Allergies Allergy Verified 11/08/18 22:22 Physical Exam Vitals: Vital Signs Temp Pulse Pulse Resp BP BP Pulse Ox 11/09/18 15:10 98.9 F 86 18 161/75 97 11/09/18 15:08 66 16 11/09/18 11:45 97.0 F L 66 16 169/58 11/09/18 11:25 67 18 11/09/18 08:44 67 18 11/09/18 08:38 97.3 F L 67 18 202/96 98 11/09/18 06:35 158/88 11/09/18 05:47 174/89 11/09/18 04:15 97.8 F 94 16 167/84 94 L 11/09/18 03:20 168/88 11/09/18 02:15 97.8 F 89 15 194/102 95 11/09/18 01:48 82 18 170/106 96 11/08/18 22:15 97.8 F 111 H 20 195/105 98 Intake and Output 11/09/18 11/09/18 11/09/18 06:59 14:59 22:59 Intake Total 1380 Output Total 700 Balance 680 Intake: Intake, IV Titration 1380 Amount Sodium Chloride 0.9% 1, 1380 000 ml @ 115 mls/hr IV . Q8H42M [facility] Rx#:[id number] Output: Urine 700 Other: Voiding Method Toilet Toilet Incontinent Incontinent # Voids 1 1 Weight 45 kg 45 kg GENERAL EXAM: Patient is alert and doesn't appear to be in any acute distress HEENT: Normocephalic. Normal reaction of pupils, equal size, normal range of extraocular motion. No erythema or exudates in the throat. NECK: No masses, no nuchal rigidity. CHEST: No chest wall deformity. LUNGS: Equal air entry with no crackles or wheeze. HEART: S1 and S2 normal with no audible mumurs or gallops. Regular rhythm, femorals equal on both sides.. ABDOMEN: No hepatosplenomegaly, normal bowel sounds, no guarding or rigidity. SKIN: No rashes CENTRAL NERVOUS SYSTEM: No focal deficits. EXTREMITIES: No cyanosis, clubbing or edema. Results 11/09/18 06:27 11/08/18 22:32 Cardiac Enzymes 11/08/18 11/08/18 11/09/18 Range/Units 22:32 22:32 04:03 AST 42 H (14-36) U/L Troponin I 0.134 H* 0.138 H* (0.000-0.034) ng/mL 11/09/18 Range/Units 09:56 AST (14-36) U/L Troponin I 0.162 H* (0.000-0.034) ng/mL CBC 11/08/18 11/09/18 Range/Units 22:32 06:27 WBC 11.1 H 13.8 H (3.8-10.6) k/uL RBC 4.37 4.20 (3.80-5.40) m/uL Hgb 12.4 11.8 (11.4-16.0) gm/dL Hct 39.7 38.6 (34.0-46.0) % Plt Count 348 315 (150-450) k/uL Comprehensive Metabolic Panel 11/08/18 Range/Units 22:32 Sodium 148 H (137-145) mmol/L Potassium 4.0 (3.5-5.1) mmol/L Chloride 118 H (98-107) mmol/L Carbon Dioxide 16 L (22-30) mmol/L BUN 41 H (7-17) mg/dL Creatinine 1.14 H (0.52-1.04) mg/dL Glucose 149 H (74-99) mg/dL Calcium 9.2 (8.4-10.2) mg/dL AST 42 H (14-36) U/L ALT 12 (9-52) U/L Alkaline Phosphatase 126 (38-126) U/L Total Protein 7.5 (6.3-8.2) g/dL Albumin 4.0 (3.5-5.0) g/dL Current Medications Generic Name Dose Route Start Last Admin Trade Name Freq PRN Reason Stop Dose Admin Amlodipine Besylate 5 mg 11/09/18 02:51 11/09/18 08:38 Norvasc PO 5 mg BID MIKE Administration Aspirin 325 mg 11/10/18 09:00 Aspirin PO DAILY MIKE Furosemide 20 mg 11/09/18 16:00 Lasix PO BID@0900,1600 [facility] Sodium Chloride 1,000 mls @ 115 mls/hr 11/08/18 23:30 11/09/18 11:42 Saline 0.9% IV 115 mls/hr .Q8H42M MIKE Administration Metoprolol Tartrate 25 mg 11/09/18 00:45 11/09/18 08:38 Lopressor PO 25 mg BID MIKE Administration Nitroglycerin 0.4 mg 11/09/18 00:37 Nitrostat SUBLINGUAL Q5M PRN Chest Pain Intake and Output 11/09/18 11/09/18 11/09/18 06:59 14:59 22:59 Intake Total 1380 Output Total 700 Balance 680 Intake: Intake, IV Titration 1380 Amount Sodium Chloride 0.9% 1, 1380 000 ml @ 115 mls/hr IV . Q8H42M [facility] Rx#:[id number] Output: Urine 700 Other: Voiding Method Toilet Toilet Incontinent Incontinent # Voids 1 1 Weight 45 kg 45 kg Patient Weight 11/10/18 06:59 Weight 45 kg 11/09/18 06:27 11/08/18 22:32 EKG Interpretations (text) Sinus rhythm with a left bundle-branch block pattern Assessment and Plan (1) Altered mental status Current Visit: Yes Status: Acute Code(s): R41.82 - ALTERED MENTAL STATUS, UNSPECIFIED SNOMED Code(s): 900910563 (2) Elevated troponin Current Visit: Yes Status: Acute Code(s): R74.8 - ABNORMAL LEVELS OF OTHER SERUM ENZYMES SNOMED Code(s): 916783500 (3) Abdominal aortic aneurysm Current Visit: No Status: Acute Code(s): I71.4 - ABDOMINAL AORTIC ANEURYSM, WITHOUT RUPTURE SNOMED Code(s): 554438648 (4) CHF (congestive heart failure) Current Visit: No Status: Acute Code(s): I50.9 - HEART FAILURE, UNSPECIFIED SNOMED Code(s): 00389021 Plan: Overall patient's clinical status from cardiac standpoint appear to be stable. Her troponins are elevated but the pattern is not consistent with acute myocardial infarctions. Her proBNP is 41,000. Chest x-ray does show some evidence of CHF. I'm going to resume her Lasix and continue rest of the medication. Her lactic acid was high on admission but has come down to normal range. Overall prognosis is poor. We'll see her as needed
[2018-11-09] MEDS: FUROSEMIDE 20 MG TAB PO SCH (18:04)
[2018-11-09] MEDS: QUEtiapine 25 MG TAB PO SCH (21:44)
[2018-11-09] MEDS: DONEPEZIL 10 MG TAB PO SCH (21:44)
[2018-11-10 07:08] LABS: Anisocytosis Slight; HCT 34.6 % (34.0-46.0); HGB 11.1 gm/dL (11.4-16.0); Hypochromasia Slight; MCV 90.6 fL (80.0-100.0); Mean Platelet Volume 7.2; Platelet Count 274 k/uL (150-450); RBC 3.82 m/uL (3.80-5.40); RDW 16.4 % (11.5-15.5); WBC 11.9 k/uL (3.8-10.6)
[2018-11-10 07:24] LABS: Calcium 8.5 mg/dL (8.4-10.2); Magnesium 1.7 mg/dL (1.6-2.3); Potassium 3.2 mmol/L (3.5-5.1)
[2018-11-10] MEDS: METOPROLOL TARTRATE 25 MG TAB PO SCH ×2 (08:13→21:26)
[2018-11-10] MEDS: FUROSEMIDE 20 MG TAB PO SCH ×2 (08:13→15:27)
[2018-11-10] MEDS: ASPIRIN 325 MG TAB PO SCH (08:13)
[2018-11-10] MEDS: amLODIPine 5 MG TAB PO SCH ×2 (08:13→21:25)
[2018-11-10] MEDS: SODIUM CHLORIDE 0.9% 1,000 ML IV SCH (09:38)
[2018-11-10] MEDS ORDERED: POTASSIUM CHLORIDE ER 20 MEQ TAB.ER PO STA (12:08)
--- NOTE | 2018-11-10 12:10 | P.HPIM ---
History of Present Illness 83-year-old the female with history of dementia patient is status is elevated baseline now patient has not been eating and drinking well because of which may patient's daughter thought patient is dehydrated patient is actually dehydrated and received IV fluids improved now patient had lactic acidosis patient doesn't have any symptoms of UTI denied any dysuria denied nasal purpuric pain doesn't have any fever leukocytosis. Patient was started on Rocephin thinking that patient has urinary tract infection urine showed 6 WBCs and moderate bacteria but patient has a symptomatic bacteriuria patient apparently was bit more confused but I believe it's secondary to dehydration and medics are not The patient is a 2 days of Rocephin and now on disc any other antibiotics at this time. Her potassium is bit low because of her natriuretic hypokalemia because of IV fluids and potassium will be supplemented. Patient does have congestive heart failure ejection fraction of around 30-35% because of which IV fluids will be discontinue linezolid patient will be resumed on her oral Lasix. Patient denied any cough chest x-ray did not show any pneumonic process troponin is minimally elevated cardiology evaluated the patient no further intervention regarding this patient is still has noniron gap metabolic acidosis secondary to hyperchloremia from IV fluids Review of Systems REVIEW OF SYSTEMS: CONSTITUTIONAL: No fever, no malaise, no fatigue. HEENT: No recent visual problems or hearing problems. Denied any sore throat. CARDIOVASCULAR: No chest pain, orthopnea, PND, no palpitations, no syncope. PULMONARY: No shortness of breath, no cough, no hemoptysis. GASTROINTESTINAL: No diarrhea, no nausea, no vomiting, no abdominal pain. NEUROLOGICAL: No headaches, no weakness, no numbness. HEMATOLOGICAL: Denies any bleeding or petechiae. GENITOURINARY: Denies any burning micturition, frequency, or urgency. MUSCULOSKELETAL/RHEUMATOLOGICAL: Denies any joint pain, swelling, or any muscle pain. ENDOCRINE: Denies any polyuria or polydipsia. I'll the patient is not a reliable historian because of her dementia which appears to be advanced The rest of the 14-point review of systems is negative. Past Medical History Past Medical History: Dementia, Hyperlipidemia, Hypertension Additional Past Medical History / Comment(s): DAVID rosen History of Any Multi-Drug Resistant Organisms: VRE Date of last positivie culture/infection: 06/23/18 MDRO Source:: VRE URINE Past Surgical History: Coronary Bypass/CABG Additional Past Surgical History / Comment(s): cabg( between [id number]) Past Anesthesia/Blood Transfusion Reactions: Unable to Obtain Additional Past Anesthesia/Blood Transfusion Reaction / Comment(s): hallucination Past Psychological History: No Psychological Hx Reported Smoking Status: Former smoker Past Alcohol Use History: Occasional Additional Past Alcohol Use History / Comment(s): patient denies any alcohol use at this time, Past Drug Use History: None Reported - Past Family History Father Family Medical History: No Reported History Mother Additional Family Medical History / Comment(s): of old age Medications and Allergies Home Medications Medication Instructions Recorded Confirmed Type Donepezil [Aricept] 10 mg PO HS 04/23/18 11/08/18 History Multivitamins, Thera [Multivitamin 1 tab PO DAILY 04/23/18 11/08/18 History (formulary)] Furosemide [Lasix] 20 mg PO BID@0900,1600 #60 tab 07/09/18 11/08/18 Rx Metoprolol Tartrate [Lopressor] 12.5 mg PO BID 11/08/18 11/08/18 History QUEtiapine [SEROquel] 25 mg PO HS 11/08/18 11/08/18 History amLODIPine [Norvasc] 10 mg PO DAILY 11/08/18 11/08/18 History Allergies Allergy/AdvReac Type Severity Reaction Status Date / Time No Known Allergies Allergy Verified 11/08/18 22:22 Physical Exam Vitals: Vital Signs Temp Pulse Resp BP Pulse Ox 11/10/18 11:21 83 17 11/10/18 08:00 98.2 F 55 L 16 203/73 92 L 11/10/18 03:24 99.7 F H 83 17 170/73 98 11/09/18 23:50 77 18 139/67 95 11/09/18 20:00 99.1 F 92 17 188/129 97 11/09/18 15:10 98.9 F 86 18 161/75 97 11/09/18 15:08 66 16 Intake and Output 11/09/18 11/10/18 11/10/18 22:59 06:59 14:59 Intake Total 60 Balance 60 Intake: Oral 60 Other: Voiding Method Toilet Toilet Toilet Incontinent Incontinent Incontinent # Voids 1 1 Weight 45 kg 50 kg PHYSICAL EXAMINATION: GENERAL: The patient is alert and oriented x2, not in any acute distress. Well developed, well nourished. HEENT: Pupils are round and equally reacting to light. EOMI. No scleral icterus. No conjunctival pallor. Normocephalic, atraumatic. No pharyngeal erythema. No thyromegaly. CARDIOVASCULAR: S1 and S2 present. No murmurs, rubs, or gallops. PULMONARY: Chest is clear to auscultation, no wheezing or crackles. ABDOMEN: Soft, nontender, nondistended, normoactive bowel sounds. No palpable organomegaly. MUSCULOSKELETAL: No joint swelling or deformity. EXTREMITIES: No cyanosis, clubbing, or pedal edema. NEUROLOGICAL: Gross neurological examination did not reveal any focal deficits. SKIN: No rashes. Results CBC & Chem 7: 11/10/18 06:33 11/10/18 06:22 Labs: Abnormal Lab Results - Last 24 Hours (Table) 11/10/18 11/10/18 Range/Units 06:22 06:33 WBC 11.9 H (3.8-10.6) k/uL Hgb 11.1 L (11.4-16.0) gm/dL RDW 16.4 H (11.5-15.5) % Potassium 3.2 L (3.5-5.1) mmol/L Chloride 114 H (98-107) mmol/L Carbon Dioxide 18 L (22-30) mmol/L BUN 33 H (7-17) mg/dL Microbiology - Last 24 Hours (Table) 11/09/18 07:10 Urine Culture - Preliminary Urine,Clean Catch Thrombosis Risk Factor Assmnt - Choose All That Apply Any of the Below Risk Factors Present?: Yes Each Factor Represents 1 point: Abnormal pulmonary function (COPD), Sepsis (< 1month) Other Risk Factors: Yes Each Risk Factor Represents 3 Points: Age 75 years or older Thrombosis Risk Factor Assessment Total Risk Factor Score: 5 Thrombosis Risk Factor Assessment Level: High Risk Assessment and Plan Plan: Possible altered mental status mostly related to lucid and non-lucid visit dementia may have metabolic encephalopathy from dehydration which improved at this time. -A similar event she will not require any antibiotics Hepatitis start failure chronic systolic dysfunction patient is fairly euvolemic will be resumed on her oral Lasix and this can you IV fluids Have lactic is doses secondary to intravascular depletion and decreased tissue have perfusion -Acute renal failure: Secondary to intravascular depletion improved now -Elevated troponin: Without any chest pain not secondary to myocardial infarction no further intervention at this time -Leukocytosis reactive -Hypokalemia natriuretic hyperkalemia as mentioned above potassium was supplemented -Dementia advanced probably senile or vascular, physical therapy and occupational therapy evaluation patient many placement Patient will follow glargine DVT and GI prophylaxis
[2018-11-10] MEDS: DONEPEZIL 10 MG TAB PO SCH (21:25)
[2018-11-10] MEDS: HEPARIN SODIUM,PORCINE 5,000 UNIT/ML 1 ML VIAL SQ SCH (21:25)
[2018-11-10] MEDS: QUEtiapine 25 MG TAB PO SCH (21:25)
[2018-11-10] MEDS: FAMOTIDINE 20 MG TAB PO SCH (21:25)
[2018-11-11 07:06] LABS: Anisocytosis Slight; HCT 35.9 % (34.0-46.0); HGB 11.4 gm/dL (11.4-16.0); Hypochromasia Slight; MCH 28.2 pg (25.0-35.0); MCHC 31.7 g/dL (31.0-37.0); MCV 88.9 fL (80.0-100.0); Platelet Count 317 k/uL (150-450); RBC 4.03 m/uL (3.80-5.40); RDW 16.6 % (11.5-15.5); WBC 11.2 k/uL (3.8-10.6)
[2018-11-11 07:25] LABS: Calcium 8.9 mg/dL (8.4-10.2); Magnesium 1.7 mg/dL (1.6-2.3); Potassium 4.3 mmol/L (3.5-5.1)
[2018-11-11] MEDS: METOPROLOL TARTRATE 25 MG TAB PO SCH ×2 (09:06→20:17)
[2018-11-11] MEDS: FAMOTIDINE 20 MG TAB PO SCH (09:06)
[2018-11-11] MEDS: HEPARIN SODIUM,PORCINE 5,000 UNIT/ML 1 ML VIAL SQ SCH ×2 (09:06→20:16)
[2018-11-11] MEDS: ASPIRIN 325 MG TAB PO SCH (09:06)
[2018-11-11] MEDS: FUROSEMIDE 20 MG TAB PO SCH ×2 (09:06→15:54)
[2018-11-11] MEDS: amLODIPine 5 MG TAB PO SCH ×2 (09:06→20:17)
[2018-11-11 11:24] VITALS: BMI 19.0
--- NOTE | 2018-11-11 14:33 | P.PN ---
Subjective 82-year-old with the dementia admitted with altered mental status which I believe the worsening of dementia. Although patient leukocytosis did not i mprove patient urine cultures are positive for E. coli because of which are good and resume her ceftriaxone and patient can be discharged on Ceftin. We're awaiting disposition to subacute rehabilitation E. coli is pansensitive. Patient will be resumed on her Lasix. Patient's EF was 30-35% will need to do close titration of her diuretic therapy as people of her age can easily get dehydrated patient came in with lactic is doses mostly from dehydration. Patient uses 20 mg of Lasix at home twice a day probably can be resumed on that and can be discharged to subacute rehabilitation tomorrow patient is awaiting prior authorization. Constitutional: Denied any fatigue denied any fever. Cardio vascular: denied any chest pain, palpitations Gastrointestinal denied any nausea vomiting Pulmonary: Denied any shortness of breath cough Neurologic denied any new focal deficits All inpatient medications were reviewed and appropriate changes in these medications as dictated in the interval history and assessment and plan. Objective - Vital Signs Vital signs: Vital Signs Temp 98.3 F 11/11/18 04:00 Pulse 79 11/11/18 08:00 Resp 16 11/11/18 08:00 BP 149/71 11/11/18 04:00 Pulse Ox 97 11/11/18 04:00 Intake & Output 11/10/18 11/11/18 11/11/18 18:59 06:59 18:59 Intake Total 415 240 Output Total 200 Balance 215 240 Weight 45.7 kg 45.7 kg Intake: Oral 415 240 Output: Urine 200 Other: Voiding Method Toilet Toilet Toilet Incontinent Incontinent Incontinent # Voids 1 1 1 - Exam PHYSICAL EXAMINATION: GENERAL: The patient is alert and oriented x3, not in any acute distress. Well developed, well nourished. HEENT: Pupils are round and equally reacting to light. EOMI. No scleral icterus. No conjunctival pallor. Normocephalic, atraumatic. No pharyngeal erythema. No thyromegaly. CARDIOVASCULAR: S1 and S2 present. No murmurs, rubs, or gallops. PULMONARY: Chest is clear to auscultation, no wheezing or crackles. ABDOMEN: Soft, nontender, nondistended, normoactive bowel sounds. No palpable organomegaly. MUSCULOSKELETAL: No joint swelling or deformity. EXTREMITIES: No cyanosis, clubbing, or pedal edema. NEUROLOGICAL: Gross neurological examination did not reveal any focal deficits. SKIN: No rashes. - Labs CBC & Chem 7: 11/11/18 06:07 11/11/18 06:07 Labs: Abnormal Lab Results - Last 24 Hours (Table) 11/11/18 11/11/18 Range/Units 06:07 06:07 WBC 11.2 H (3.8-10.6) k/uL RDW 16.6 H (11.5-15.5) % Chloride 111 H (98-107) mmol/L BUN 32 H (7-17) mg/dL Creatinine 1.09 H (0.52-1.04) mg/dL Glucose 100 H (74-99) mg/dL Microbiology - Last 24 Hours (Table) 11/09/18 07:10 Urine Culture - Final Urine,Clean Catch Escherichia coli Assessment and Plan Plan: Possible altered mental status possible toxic encephalopathy from urinary tract infection -Possibility of UTI cannot be ruled out patient has E. coli in the urine for which patient will be discharged on Ceftin as mentioned above Congestive heart failure chronic systolic dysfunction patient is fairly euvolemic, patient will continue her on home dose of Lasix Lactic acidosis: Probably secondary to UTI or intravascular depletion and decreased organ perfusion -Acute renal failure: Secondary to intravascular depletion improved now with IV fluids on admission which were discontinued yesterday -Elevated troponin: Without any chest pain not secondary to myocardial infarction no further intervention at this time -Leukocytosis reactive or secondary to UTI -Hypokalemia natriuretic hypo-kalemia, improved with supplementation. -Dementia advanced probably senile or vascular, physical therapy and occupational therapy evaluation patient many placement Patient will need pharmacologic DVT and GI prophylaxis
[2018-11-11] MEDS: CEFDINIR 300 MG CAP PO SCH (20:17)
[2018-11-11] MEDS: QUEtiapine 25 MG TAB PO SCH (20:17)
[2018-11-11] MEDS: DONEPEZIL 10 MG TAB PO SCH (20:17)
[2018-11-12] MEDS: ASPIRIN 325 MG TAB PO SCH (07:40)
[2018-11-12] MEDS: FAMOTIDINE 20 MG TAB PO SCH (07:40)
[2018-11-12] MEDS: CEFDINIR 300 MG CAP PO SCH (07:40)
[2018-11-12] MEDS: METOPROLOL TARTRATE 25 MG TAB PO SCH ×2 (07:41→20:55)
[2018-11-12] MEDS: amLODIPine 5 MG TAB PO SCH ×2 (07:41→20:55)
[2018-11-12] MEDS: HEPARIN SODIUM,PORCINE 5,000 UNIT/ML 1 ML VIAL SQ SCH ×2 (07:41→20:54)
[2018-11-12] MEDS: FUROSEMIDE 20 MG TAB PO SCH ×2 (07:41→16:40)
--- NOTE | 2018-11-12 19:09 | P.PN ---
Subjective 82-year-old with the dementia admitted with altered mental status which I believe the worsening of dementia. Although patient leukocytosis did not improve patient urine cultures are positive for E. coli because of which are good and resume her ceftriaxone and patient can be discharged on Ceftin. We're awaiting disposition to subacute rehabilitation E. coli is pansensitive. Patient will be resumed on her Lasix. Patient's EF was 30-35% will need to do close titration of her diuretic therapy as people of her age can easily get dehydrated patient came in with lactic is doses mostly from dehydration. Patient uses 20 mg of Lasix at home twice a day probably can be resumed on that and can be discharged to subacute rehabilitation tomorrow patient is awaiting prior authorization. subjective 11/12/2018 pt is with E.coli UTI , on cefdinir . she has fever today or 100 + , we will start pt on ceftriaxone , we will keep monitoring , once pt improve we can discharge her on ceftin still pt is expected to be discharged soon. Constitutional: Denied any fatigue denied any fever. Cardio vascular: denied any chest pain, palpitations Gastrointestinal denied any nausea vomiting Pulmonary: Denied any shortness of breath cough Neurologic denied any new focal deficits All inpatient medications were reviewed and appropriate changes in these medications as dictated in the interval history and assessment and plan. Objective - Vital Signs Vital signs: Vital Signs Temp 97.6 F 11/12/18 13:26 Pulse 87 11/12/18 13:26 Resp 16 11/12/18 13:26 BP 123/57 11/12/18 13:26 Pulse Ox 96 11/12/18 13:26 Intake & Output 11/12/18 11/12/18 11/13/18 06:59 18:59 06:59 Intake Total 780 Balance 780 Intake: Oral 780 Other: Voiding Method Toilet Toilet Incontinent Incontinent # Voids 1 2 # Bowel Movements 1 - Exam GENERAL: The patient is alert and oriented x3, not in any acute distress. Well developed, well nourished. HEENT: Pupils are round and equally reacting to light. EOMI. No scleral icterus. No conjunctival pallor. Normocephalic, atraumatic. No pharyngeal erythema. No th yromegaly. CARDIOVASCULAR: S1 and S2 present. No murmurs, rubs, or gallops. PULMONARY: Chest is clear to auscultation, no wheezing or crackles. ABDOMEN: Soft, nontender, nondistended, normoactive bowel sounds. No palpable organomegaly. MUSCULOSKELETAL: No joint swelling or deformity. EXTREMITIES: No cyanosis, clubbing, or pedal edema. NEUROLOGICAL: Gross neurological examination did not reveal any focal deficits. SKIN: No rashes. - Labs CBC & Chem 7: 11/11/18 06:07 11/11/18 06:07 Assessment and Plan Assessment: Possible altered mental status possible toxic encephalopathy from urinary tract infection - UTI secondary to E. coli in the urine for which patient will be discharged on Ceftin as mentioned above -Congestive heart failure chronic systolic dysfunction patient is fairly euvolemic, patient will continue her on home dose of Lasix -Lactic acidosis: Probably secondary to UTI or intravascular depletion and decreased organ perfusion -Acute renal failure: Secondary to intravascular depletion improved now with IV fluids on admission which were discontinued yesterday -Elevated troponin: Without any chest pain not secondary to myocardial infarction no further intervention at this time -Leukocytosis reactive or secondary to UTI -Hypokalemia natriuretic hypo-kalemia, improved with supplementation. -Dementia advanced probably senile or vascular, physical therapy and occupational therapy evaluation patient many placement Patient will need pharmacologic DVT and GI prophylaxis
[2018-11-12] MEDS: QUEtiapine 25 MG TAB PO SCH (20:55)
[2018-11-12] MEDS: DONEPEZIL 10 MG TAB PO SCH (20:55)
[2018-11-13] MEDS: FUROSEMIDE 20 MG TAB PO SCH (08:14)
[2018-11-13] MEDS: FAMOTIDINE 20 MG TAB PO SCH (08:14)
[2018-11-13] MEDS: ASPIRIN 325 MG TAB PO SCH (08:14)
[2018-11-13] MEDS: amLODIPine 5 MG TAB PO SCH (08:14)
[2018-11-13] MEDS: HEPARIN SODIUM,PORCINE 5,000 UNIT/ML 1 ML VIAL SQ SCH (08:14)
[2018-11-13] MEDS: METOPROLOL TARTRATE 25 MG TAB PO SCH (08:14)
[2018-11-13 10:44] LABS: Anisocytosis Slight; Basophils % (A) 0 %; Eosinophils # (A) 0.1 k/uL (0-0.7); Eosinophils % (A) 1 %; HCT 35.7 % (34.0-46.0); HGB 10.9 gm/dL (11.4-16.0); Lymphocytes # (A) 0.7 k/uL (1.0-4.8); Lymphocytes % (A) 6 %; MCH 27.4 pg (25.0-35.0); MCHC 30.4 g/dL (31.0-37.0); Mean Platelet Volume 7.2; Monocytes # (A) 0.8 k/uL (0-1.0); Monocytes % (A) 7 %; Neutrophils # (A) 9.6 k/uL (1.3-7.7); Neutrophils % (A) 84 %; Platelet Count 466 k/uL (150-450); RBC 3.97 m/uL (3.80-5.40); RDW 16.5 % (11.5-15.5); WBC 11.3 k/uL (3.8-10.6)
[2018-11-13 10:58] LABS: Calcium 8.3 mg/dL (8.4-10.2); Potassium 3.8 mmol/L (3.5-5.1)
--- NOTE | 2018-11-13 11:20 | US ---
EXAMINATION TYPE: US kidneys/renal and bladder DATE OF EXAM: 11/13/2018 COMPARISON: CT CLINICAL HISTORY: uti and fever . EXAM MEASUREMENTS: Right Kidney: 10.8 x 4.7 x 4.7 cm Left Kidney: 10.0 x 4.4 x 4.9 cm Right Kidney: cysts noted, largest measuring 2.8 x 1.5 x 2.9cm, echogenic foci noted, stone vs calc ified arteries Left Kidney: cysts noted, largest measuring 2.6 x 1.8 x 2.7cm, shadowing echogenic foci measuring 0. 6cm Bladder: wnl no hydronephrosis. IMPRESSION: Bilateral renal cysts with suspected bilateral nonobstructing renal calculi.
--- NOTE | 2018-11-13 12:38 | P.DS ---
Providers Date of admission: 11/09/18 00:37 Attending physician: Jone Jimenez Consults: 11/09/18 00:37 Consult Physician Urgent Consulting Provider: [facility] Consult Reason/Comments: elevated trop, HTN Do you want consulting provider notified?: Yes, Notify in am Primary care physician: Stated None Hospital Course: Diagnoses - UTI secondary to E. coli in the urine for which patient will be discharged on Ceftin as mentioned above -Bilateral kidney stones and cyst, needs urologist evaluation as an outpatient -Congestive heart failure chronic systolic dysfunction patient is fairly euvole natacha, patient will continue her on home dose of Lasix -Lactic acidosis: Probably secondary to UTI or intravascular depletion and decreased organ perfusion. Improved -Acute renal failure: Secondary to intravascular depletion improved now with IV fluids on admission which were discontinued yesterday -Elevated troponin: Without any chest pain not secondary to myocardial infarction no further intervention at this time, evaluated by territory sales executive -Leukocytosis reactive or secondary to UTI -Hypokalemia natriuretic hypo-kalemia, improved with supplementation. -Dementia advanced probably senile or vascular, physical therapy and occupational therapy evaluation patient many placement -Generalized weakness, patient will benefit from inpatient rehab Hospital course: This is a pleasant 89 years old female with past medical history of vascular and Alzheimer dementia, coronary artery disease, hyperlipidemia, hypertension. Presents with signs symptoms of urinary tract infection secondary to E. coli that sensitive to many antibiotics. Renal ultrasound showing bilateral renal cysts and nonobstructing renal calculi. Patient's fever has subsided. Patient was treated with ceftriaxone and she switched to Ceftin based on her culture and sensitivity of the urine. Patient still have mild leukocytosis. Patient will be discharged on Ceftin for 10 more days. On the day of discharge patient is awake and alert, she answers questions appropriately. She denies chest pain or dyspnea. No abdominal pain or back pain. No nausea vomiting or change in urine or bowel habits. No dysuria. Problems and management plan were discussed with the patient and he verbalized understanding and acceptance Patient was found stable and can be discharged home however he needs follow-up as an outpatient. Patient was instructed to follow up with her PCP in one week and as instructed. Also patient was instructed to follow up with urologist in 7-10 days, I called the office of Dr. Dieter Gracia and referred the information of the patient to the staff, staff stated they will call the patient daughter or ECF for appointments within 24-48 hours. I called the daughter Miss Bower at [phone] and updated With this information of the need for urologist evaluation, and instructed her to contact the office within 2 days if she does not hear from them and she agrees. Cardiology appointment was set on also. Patient will be at risk of recurrent infection Gen: patient is a AAOx3, no distress CVS: S1-S2, RRR, no murmur Lungs: B/L CTA, no wheezing Abdomen: soft, no distention, no tenderness, positive bowel sounds Extremity: no leg edema or induration Time spent more than 35 minutes Patient Condition at Discharge: Serious Plan - Discharge Summary Discharge Rx Participant: No New Discharge Prescriptions: New Aspirin 81 mg PO DAILY #30 chewable Furosemide [Lasix] 20 mg PO BID@0900,1600 tab Cefuroxime Axetil [Ceftin] 500 mg PO BID 10 Days #20 tab Nitroglycerin Sl Tabs [Nitrostat] 0.4 mg SUBLINGUAL Q5M PRN tab PRN Reason: Chest Pain amLODIPine [Norvasc] 5 mg PO BID tab Famotidine [Pepcid] 20 mg PO DAILY #20 tab Continue Multivitamins, Thera [Multivitamin (formulary)] 1 tab PO DAILY Donepezil [Aricept] 10 mg PO HS amLODIPine [Norvasc] 10 mg PO DAILY Metoprolol Tartrate [Lopressor] 12.5 mg PO BID QUEtiapine [SEROquel] 25 mg PO HS Discontinued Furosemide [Lasix] 20 mg PO BID@0900,1600 #60 tab Discharge Medication List Donepezil [Aricept] 10 mg PO HS 04/23/18 [History] Multivitamins, Thera [Multivitamin (formulary)] 1 tab PO DAILY 04/23/18 [History] Metoprolol Tartrate [Lopressor] 12.5 mg PO BID 11/08/18 [History] QUEtiapine [SEROquel] 25 mg PO HS 11/08/18 [History] amLODIPine [Norvasc] 10 mg PO DAILY 11/08/18 [History] Aspirin 81 mg PO DAILY #30 chewable 11/11/18 [Rx] Furosemide [Lasix] 20 mg PO BID@0900,1600 tab 11/11/18 [Rx] Cefuroxime Axetil [Ceftin] 500 mg PO BID 10 Days #20 tab 11/13/18 [Rx] Famotidine [Pepcid] 20 mg PO DAILY #20 tab 11/13/18 [Rx] Nitroglycerin Sl Tabs [Nitrostat] 0.4 mg SUBLINGUAL Q5M PRN tab 11/13/18 [Rx] amLODIPine [Norvasc] 5 mg PO BID tab 11/13/18 [Rx] Follow up Appointment(s)/Referral(s): Meggan Riggins MD [STAFF PHYSICIAN] - 3 Days (Not accepting new patients) Thomas Villarreal MD [STAFF PHYSICIAN] - 11/25/18 1:00 pm (Sunday) Keshawn Mosley MD [STAFF PHYSICIAN] - 1 Week Basil Cruz MD [STAFF PHYSICIAN] - 1 Week (he is the urologist . the office will cotact your for appointment ) Patient Instructions/Handouts: Heart Failure (DC) Activity/Diet/Wound Care/Special Instructions: DNR activity as tolerated heart healthy/dysphagia 2 shopped diet Discharge Disposition: TRANSFER TO SNF/ECF
[2018-11-13 13:16] VITALS: BP 120/64; PULSE 73; RESP 20; TEMP 97.5
== END 2018-11-13 14:30 | DRG 689 ==
LOC: EC 22:03 → 3SCARD 11-09 00:37 → 4MS4W 11-11 16:20
PROVIDERS: ADMIT Hospitalist; ATTEND Hospitalist
DX: N39.0 Urinary tract infection, site not specified (principal); G93.41 Metabolic encephalopathy; E87.0 Hyperosmolality and hypernatremia; E87.2 Acidosis; I42.9 Cardiomyopathy, unspecified; I50.22 Chronic systolic (congestive) heart failure; N17.9 Acute kidney failure, unspecified; Z66 Do not resuscitate; B96.20 Unspecified Escherichia coli [E. coli] as the cause of diseases classified elsewhere; E78.5 Hyperlipidemia, unspecified; E86.0 Dehydration; E87.6 Hypokalemia; E87.8 Other disorders of electrolyte and fluid balance, not elsewhere classified; G30.9 Alzheimer's disease, unspecified; F02.80 Dementia in other diseases classified elsewhere, unspecified severity, without behavioral disturbance, psychotic disturbance, mood disturbance, and anxiety; I11.0 Hypertensive heart disease with heart failure; I25.10 Atherosclerotic heart disease of native coronary artery without angina pectoris; I71.4 Abdominal aortic aneurysm, without rupture; N20.0 Calculus of kidney; N28.1 Cyst of kidney, acquired; Z79.899 Other long term (current) drug therapy; Z87.891 Personal history of nicotine dependence; Z95.1 Presence of aortocoronary bypass graft; D72.829 Elevated white blood cell count, unspecified
CPT/HCPCS: 36415; 71045; 74018; 76770; 80048; 80053; 81001; 82150; 83605; 83690; 83735; 83880; 84132; 84484; 85025; 85027; 87077; 87086; 87186; 93005; 96361; 96374; 99285